=== PATIENT | female | born 1985 | race Caucasian/White ===

== ENCOUNTER 2018-12-27 23:23 | Inpatient (IN) | payer OTHER ==
[~2018-12-27] VITALS: Ht 157.5 cm; Wt 78.0 kg
[~2018-12-27 23:23] MED LIST: GABA300C16 PO; HYDR-3643 PO; HYDR30CR92 PR; MTF1000T PO; OMEP40CA6 PO; OXYC-438 PO; PANT40TA4 PO; POLY17PO6 PO; TRAM50TA PO
[2018-12-27] MEDS: SOD CHLORIDE 0.9% 1,000 ML IV SCH (23:59)
[2018-12-27] MEDS: morphine 2 MG INJ IV PRN (23:59)
[2018-12-27] MEDS: ONDANSETRON 4 MG INJ IV PRN (23:59)
[2018-12-28] MEDS ORDERED: NACL 0.9% 3 ML SYG IV SCH
[2018-12-28] MEDS ORDERED: ACETAMINOPHEN 325 MG TAB PO PRN
[2018-12-28] MEDS: PANTOPRAZOLE 40 MG INJ IV SCH ×3 (00:28→17:23)
[2018-12-28 02:33] VITALS: BP 112/59; PULSE 99; RESP 19
[2018-12-28 02:59] VITALS: Ht 157.5 cm; Wt 78.0 kg
--- NOTE | 2018-12-28 03:08 | HP ---
Date/Time of Note Date/Time of Note DATE: 12/28/18 TIME: 03:08 Assessment/Plan VTE Prophylaxis SCD applied (from Nsg): Yes Pharmacological prophylaxis: NA/contraindicated Pharm contraindication: low risk/ambulating Lines/Catheters IV Catheter Type (from Nrsg): Saline Lock Assessment/Plan Hospital Course This is a 33-year-old female being admitted to the [facility] floor for: #1 acute GI bleed: Patient is status post blood transfusion prior to being transferred. Hemoglobin currently 7.8. We will repeat CBC and check every 6 hours. Check stool occult blood. Transfuse for hemoglobin less than 7.5. Protonix 40 IV twice daily. We will also check reticular site count, haptoglobin, lactate dehydrogenase. will consult GI . #2 suspect hepatitis: Etiology possibly alcohol versus hepatitis B/hepatitis C: Her last drink apparently was about a week and a half ago. Ultrasound at the transfer facility did not show any acute findings, there was possible concern for cirrhosis. We will repeat an ultrasound and also obtain an MRCP. Will repeat LFTs will check hepatitis serology, will also check lactate dehydrogenase reticulocyte count and haptoglobin. Consult GI. #3 bandemia: Patient is afebrile. White blood cell count normal. Will check blood cultures x2, check urinalysis. #4 elevated BNP: We will check an echocardiogram. Consider cardiology consultation if indicated #5 obesity: We will check hemoglobin A 1C, lipid panel, TSH #6 alcohol binge episode: Patient reports that she went on a alcohol binge episode over the last month with her last drink being approximately on December 11. Will encourage continued cessation. #7 DVT GI prophylaxis: SCDs, Protonix Further treatment strategy will be implemented as per the clinical course. Result Diagram: 12/27/18 2351 12/27/18 2351 Results 24hrs Laboratory Tests Test 12/27/18 23:51 12/28/18 00:07 12/28/18 00:08 White Blood Count 9.4 Red Blood Count 2.49 L Hemoglobin 7.8 L Hematocrit 24.0 L Mean Corpuscular Volume 96.4 Mean Corpuscular Hemoglobin 31.3 Mean Corpuscular Hemoglobin Concent 32.5 Red Cell Distribution Width 22.4 H Platelet Count 310 Mean Platelet Volume 10.2 Immature Granulocytes % 1.300 H Neutrophils % Segmented Neutrophils % (Manual) 38 L Band Neutrophils % (Manual) 36 H Lymphocytes % Lymphocytes % (Manual) 18 Monocytes % Monocytes % (Manual) 6 Eosinophils % Eosinophils % (Manual) 2 Basophils % Nucleated Red Blood Cells % 0.2 H Immature Granulocytes # 0.120 H Neutrophils # Neutrophils # (Manual) 3.9 Band Neutrophils # 3.3 H Lymphocytes (Manual) 1.6 Lymphocytes # Monocytes # Monocytes # (Manual) 0.5 Eosinophils # Basophils # Nucleated Red Blood Cells # Platelet Estimate NORMAL Giant Platelets 1 H Polychromasia 3+ Hypochromasia 1+ Anisocytosis 3+ Macrocytosis 3+ Prothrombin Time 18.6 H Prothrombin Time Ratio 1.5 INR International Normalized Ratio 1.54 Activated Partial Thromboplast Time 55.8 H Sodium Level 133 L Potassium Level 3.9 Chloride Level 106 Carbon Dioxide Level 20 L Anion Gap 7 Blood Urea Nitrogen 10 Creatinine 0.65 Est Glomerular Filtrat Rate mL/min > 60 Glucose Level 107 Calcium Level 8.0 L Total Bilirubin 4.5 H Direct Bilirubin 2.80 H Indirect Bilirubin 1.7 H Aspartate Amino Transf (AST/SGOT) 125 H Alanine Aminotransferase (ALT/SGPT) 27 Alkaline Phosphatase 220 H Troponin I < 0.012 B-Type Natriuretic Peptide 2180 H Total Protein 8.1 Albumin 2.8 L Globulin 5.30 H Albumin/Globulin Ratio 0.52 Lipase 62 Absolute Reticulocyte Count 0.043 Percent Reticulocyte Count 1.8 H Lactate Dehydrogenase 412 Hepatitis A Antibody Total POSITIVE H Hepatitis B Surface Antigen NEGATIVE Hepatitis B Surface Antibody POSITIVE H Hepatitis B Core Total Antibody NEGATIVE Hepatitis C Antibody REACTIVE H HPI/ROS Admit Date/Time Admit Date/Time Dec 27, 2018 at 23:49 Hx of Present Illness Chief complaint abdominal pain This is a 33-year-old female with a past medical history of alcohol binge over the last few weeks with her last drink being on December 11 approximately and unspecified liver disease who presented originally to [facility] with complaints of abdominal pain for 4 days. Patient was ultimately transferred [facility] secondary to insurance purposes. Solis nt stated that she started having abdominal pain with associated joint pain. She also had chest pain for 3 days and bilateral lower extremity edema times a day. She describes abdominal pain is diffuse and crampy her bowel movements no change. She was recently diagnosed with internal hemorrhoids via colonoscopy in November 2018. However she still reports she has had blood per rectum. She denied any diarrhea or constipation. She did describe chest pain is sharp and causing difficulty breathing secondary to pain and she was recently hospitalized to [place] after binge drinking and was discharged on 12/12 on Keflex Protonix iron and MiraLAX and Metamucil which she takes regularly. Vitals on presentation showed a temperature of 37.3 C heart rate of 111 blood pressure 116/55 and 96% on room air patient was noted to be slightly jaundiced. Her initial CBC showed a hemoglobin of 7.1 however a repeat showed a hemoglobin of 6.3. Hematocrit of 18.8 she was transfused packed red blood cells and upon repeat hemoglobin showed a level of 8.6. Her MCV is 103 platelet count 299 INR 1.47 PT 17.6 CMP showed sodium 131 potassium 3.8 chloride 102 CO2 18 creatinine 0.64 albumin 2.1 alk phos 163 AST 77 bili total 6.8 bili direct 4.0 lipase 27 BNP 488 urine hCG was negative urinalysis showed a large bilirubin negative leukocytes negative nitrites patient was a positive blood type Right upper quadrant ultrasound showed limited examination secondary prominent overlying bowel gas. Pancreas was not visualized. Enlarged fatty liver. Questionable slight liver surface nodularity. Early cirrhosis not excluded. Gallbladder wall was normal thickness Upon arrival to [facility] patient continued to report that she has vague abdominal discomfort. She does report epigastric pain. She denies any vomiting of blood. But does report bloody stools. She apparently had a colonoscopy as mentioned above that showed hemorrhoids. She denies any history of IV drug use. She does have multiple tattoos. Denies any high risk sexual behavior. Denies any previous blood transfusions. She reports that she was dealing with stress in her life therefore 100 binge episode but then stopped on approximately December 11 Allergies: NKDA medications: See JUL ROS Const: As per HPI Eyes : No pain discharge or redness or change in visual acuity ENT: No pain, sore throat, congestion, congestion, dysphagia or discharge Respiratory: No shortness of breath, cough, sputum, wheezing, or pleuritic pain Cardiovascular: No chest pain, palpitation, PND, or edema GI : As per HPI Genitourinary: No dysuria, hematuria, flank pain , discharge or CVA tenderness Musculoskeletal: No joint pain, back pain, neck pain, restricted range of motion in neck or joints Skin: No rash, bruising or hives Neuro: No headache, dizziness, syncope, seizure, focal weakness Endocrine: No polyuria, polydipsia, temperature intolerance Psych: No hallucination, depression, anxiety or suicidal ideation PMH/Family/Social Past Medical History Questionable liver disease, hemorrhoids Medications Current Medications Sodium Chloride 1,000 ml @ 70 mls/hr [id number] IV Last administered on 12/27/18 23:59; Admin Dose 70 MLS/HR; Start 12/27/18 at 23:45 IV Flush (NS 3 ml) 3 ml PER PROTOCOL IV ; Start 12/28/18 at 00:00 Ondansetron HCl (Zofran Inj) 4 mg Q6H PRN IV NAUSEA/VOMITING Last administered on 12/27/18 23:59; Admin Dose 4 MG; Start 12/28/18 at 00:00 Acetaminophen (Tylenol Tab) 650 mg Q6H PRN PO .PAIN 1-3 OR TEMP Last administered on 12/28/18 02:41; Admin Dose 650 MG; Start 12/28/18 at 00:00 Morphine Sulfate (morphine) 2 mg Q4H PRN IV .SEVERE PAIN 7-10 Last administered on 12/27/18 23:59; Admin Dose 2 MG; Start 12/28/18 at 00:00 Pantoprazole (Protonix Iv) 40 mg BID@06,18 IV Last administered on 12/28/18 00:28; Admin Dose 40 MG; Start 12/28/18 at 00:00 Coded Allergies: No Known Allergy (Unverified , 12/27/18) Past Surgical History Recent colonoscopy showing hemorrhoids, tubal ligation/sterilization? Family History Significant Family History: no pertinent family hx Social History Sober for the last week and a half approximately, went on 1 month binge prior to that does not report heavy alcohol use. Smoking Status: Never smoker Drug Use: none Exam/Review of Systems Vital Signs Vitals Vital Signs Date Temp Pulse Resp B/P (MAP) Pulse Ox O2 O2 Flow FiO2 Time Delivery Rate 12/28/18 97.8 02:41 12/28/18 99 19 112/59 97 02:33 (76) 12/28/18 Room Air 01:32 Exam Exam General: Patient is a pleasant female currently lying in bed in mild distress from abdominal pain, HEENT: Atraumatic, normocephalic. The pupils are equal, round and reactive. Extraocular motor are intact, mild scleral icterus Neck: Supple with full range of motion. No rigidity or meningismus Chest: Nontender Lungs: Clear to auscultation bilaterally no crackles rales or wheezing Heart: Normal S1-S2, Regular rhythm and rate. No murmur, S3, or S4 Abdomen: Obese, soft , tenderness ablation of the epigastric region, bowel sounds are present. No guarding no rebound tenderness , No masses or o rganomegaly. No costovertebral temporal angle mass Extremities: Normal to inspection, no edema no cyanosis Neurologic: Normal mental status, speech normal, cranial nerves II through XII are intact, motor and sensory are intact, Additional Comments CLINICAL INDICATION: Chest pain TECHNIQUE: Single frontal view of the chest was obtained COMPARISON: None FINDINGS: The heart does not appear to be grossly enlarged. Minimal bibasilar atelectasis. There is no pleural effusion or pneumothorax. IMPRESSION: The lungs do not appear to be fully inflated. Minimal bibasilar atelectasis. RPTAT: HJES .David Montes MD, MD Date Time Electronically viewed and signed by .David Montes MD, MD on 12/28/2018 00:05 .S/ CC: SHEREE BUI [phone] KAVEH HOUSER Dec 28, 2018 03:08
[2018-12-28] MEDS: morphine 2 MG INJ IV PRN ×3 (04:24→13:07)
[2018-12-28] MEDS: SOD CHLORIDE 0.9% 1,000 ML IV SCH ×2 (06:52→22:23)
[2018-12-28 07:40] VITALS: BP 108/59; PULSE 89; RESP 16
--- NOTE | 2018-12-28 09:02 | RADRPT ---
Echocardiogram Report Patient Name: LORETO SCHMIDTATPatient ID: [id number] : 1985 (33y )Study Date: 12/28/2018 7:19:47 AM Gender: FAccession #: [id number] Tech: SC Location: [facility] Ref.Physician: KAVEH HOUSER Height(Cm): BSA: Weight(Kg): Quality: GoodOrder Physician: KAVEH HOUSER Account #: Procedures: Echocardiographic Report: Transthoracic echocardiogram with complete 2D, M-Mode, and doppler examination. Indications: Elevated B-type natriuretic peptide. Measurements: 2D/M Mode Doppler Measurement Value Normal Range Measurement Value Normal Range LVIDd 2D 4.8 [ 3.8 - 5.2 ] cm AV Mean Dayron 1.3 [ 70.0 - 90.0 ] cm/sec LVIDs 2D 3.0 [ 2.2 - 3.5 ] cm AV Mean PG 8.0 [ 2.0 - 4.0 ] mmHg LVPWd 2D 1.1 [ 0.6 - 0.9 ] cm AV VTI 39.4 cm IVSd 2D 0.8 [ 0.6 - 0.9 ] cm LVOT Mean Dayron 0.9 [ 60.0 - 80.0 ] cm/sec IVS/LVPW 2D 0.8 ratio LVOT Mean PG 4.0 [ 1.0 - 3.0 ] mmHg AoR Diam 2D 2.7 [ 2.3 - 3.1 ] cm LVOT Peak Dayron 1.4 [ 70.0 - 110.0 ] cm/sec LA/Ao 2D 1 ratio LVOT Peak PG 8.0 [ 2.0 - 6.0 ] mmHg LA Dimen 2D 3.9 [ 2.7 - 3.8 ] cm LVOT VTI 27.7 [ 20.0 - 30.0 ] cm MV E Peak Dayron 1.2 [ 60.0 - 130.0 ] cm/sec MV A Peak Dayron 0.6 [ 100.0 - 120.0 ] cm/sec MV E/A 1.8 [ 0.8 - 1.5 ] ratio MV Decel Time 116 [ 104 - 258 ] msec MV E/A 1.8 [ 0.8 - 1.5 ] ratio TR Peak Dayron 3.1 [ 100.0 - 280.0 ] cm/sec TR Peak PG 38.0 mmHg RVSP 53.0 [ 10.0 - 36.0 ] mmHg RA Pressure 15.0 mmHg Findings: Left Ventricle: Normal left ventricular systolic function. Normal left ventricular cavity size. Normal left ventricular wall thickness. Ejection fraction is visually estimated at 55 %. Tissue Doppler/Mitral Doppler indices are within normal limits. Right Ventricle: Normal right ventricular systolic function. Mild enlargement of right ventricle. Left Atrium: The left atrium is normal in size. Right Atrium: There is mild enlargement of right atrium. Mitral Valve: Normal appearance and function of the mitral valve with trace physiologic regurgitation. Aortic Valve: Normal appearance of the aortic valve. No significant aortic stenosis or insufficiency. Tricuspid Valve: Normal appearance of the tricuspid valve. The estimated Peak RVSP is 53 mmHg. There is moderate tricuspid regurgitation. Pulmonic Valve: Normal pulmonic valve appearance. Pericardium: Normal pericardium with no significant pericardial effusion. Aorta: Normal aortic root. IVC: Dilated IVC without respiratory collapse consistent with elevated right atrial pressure. Conclusions: Normal left ventricular systolic function. Normal left ventricular cavity size. Normal left ventricular wall thickness. Ejection fraction is visually estimated at 55 %. Tissue Doppler/Mitral Doppler indices are within normal limits. Normal right ventricular systolic function. Mild enlargement of right ventricle. There is moderate tricuspid regurgitation. The estimated Peak RVSP is 53 mmHg. Dilated IVC without respiratory collapse consistent with elevated right atrial pressure. Electronically Signed By: Jared Ortega 2018-12-28 09:01:23 PDT
[2018-12-28] MEDS ORDERED: HARD FAT/PHENYLEPHRINE SUPP PR PRN (10:00)
--- NOTE | 2018-12-28 10:00 | CONS ---
Assessment/Plan Assessment/Plan Hospital Course (Demo Recall) Summary Assessment and Plan: Assessment: Normocytic anemia Coagulopathy Alcoholic hepatitis- DF 21.5- guidelines do not recommend starting Methylprednisolone therapy for DF less than 32 -Transaminitis with direct hyperbilirubinemia-likely multifactorial Hepatitis C antibody positive- RNA Alcohol abuse Bandemia- no fevers, VSS, WBC WNL Homelessness Plan: Hepatitis C- RNA pending Abd Us- pending MRCP pending-rule out obstruction versus hepatocellular disease Obtain recent EGD/Colonoscopy completed at [facility] November 2018 Monitor H/H- transfuse for Hgb less than 7.5 Anusol Supp TID PRN Patient seen in collaboration with Dr. Ortiz CC: AKIL ORTIZ MD ; Consultation Date/Type/Reason Admit Date/Time Dec 27, 2018 at 23:49 Date of Consultation: Dec 28, 2018 Type of Consult GI Reason for Consultation Elevated LFTs Anemia Date/Time of Note DATE: 12/28/18 TIME: 09:18 Hx of Present Illness This is a 33-year-old female with past medical history of alcohol abuse with recent binge, drinking 1 to 2 pints of vodka per day for the last month. Who presented to [facility] with complaints of abdominal pain and lower extremity swelling. Patient was transferred to [facility] for insurance reasons. Work-up here has included hematology showing a normocytic anemia as well as chemistry panel showing, direct hyperbilirubinemia and transaminitis AST greater than ALT, as well as coagulopathy with INR 1.54. GI been consulted for further evaluation regarding anemia and LFTs. Currently an abdominal ultrasound has been ordered as well as an MRCP to rule out obstruction versus hepatocellular disease. Serology was obtained patient is positive for hepatitis C antibody, RNA is currently pending. Hepatitis A antibody total is also positive as well as hepatitis B surface antibody. Hepatitis B surface antigen is negative, of note BNP is elevated at 2180. Her BUN and creatinine are both within normal ranges as well as lipase noted to be 62. With further questioning patient denies nausea vomiting or hematemesis she also denies melena. She does complains of intermittent bright red blood per rectum for the past 4 months. Patient states she recently had an EGD and colonoscopy at [facility] at the end of November per patient EGD was within normal limits no mention of esophageal varices. Per patient her colonoscopy was normal except for internal and external hemorrhoids. We will request recent EGD and colonoscopy from [facility], stat. Currently no plan for repeat endoscopic evaluation but will maintain close observation. She denies smoking cigarettes, or history of IV drug use. She states she started drinking at the age of 17 socially and this is her first time she experienced binge drink. Review of Systems: A 12 system, review was conducted and is negative except as noted in the HPI or here. Past Medical History Medications Current Medications Sodium Chloride 1,000 ml @ 70 mls/hr [id number] IV Last administered on 12/28/18 06:52; Admin Dose 70 MLS/HR; Start 12/27/18 at 23:45 IV Flush (NS 3 ml) 3 ml PER PROTOCOL IV ; Start 12/28/18 at 00:00 Ondansetron HCl (Zofran Inj) 4 mg Q6H PRN IV NAUSEA/VOMITING Last administered on 12/27/18at 23:59; Admin Dose 4 MG; Start 12/28/18 at 00:00 Acetaminophen (Tylenol Tab) 650 mg Q6H PRN PO .PAIN 1-3 OR TEMP Last adminis tered on 12/28/18at 02:41; Admin Dose 650 MG; Start 12/28/18 at 00:00 Morphine Sulfate (morphine) 2 mg Q4H PRN IV .SEVERE PAIN 7-10 Last administered on 12/28/18at 09:03; Admin Dose 2 MG; Start 12/28/18 at 00:00 Pantoprazole (Protonix Iv) 40 mg BID@06,18 IV Last administered on 12/28/18at 05:31; Admin Dose 40 MG; Start 12/28/18 at 00:00 Allergies: Coded Allergies: No Known Allergy (Unverified , 12/27/18) Social History Smoking Status: Never smoker Drug Use: none Exam/Review of Systems Exam Vitals Vital Signs Date Temp Pulse Resp B/P (MAP) Pulse Ox O2 O2 Flow FiO2 Time Delivery Rate 12/28/18 98.4 89 16 108/59 98 07:40 (75) 12/28/18 Room Air 01:32 Intake and Output 12/27/18 12/27/18 12/28/18 1515:00 23:00 07:00 IntakeIntake Total 1000 ml BalanceBalance 1000 ml Exam PHYSICAL EXAMINATION: GENERAL: Alert & oriented x 3, jaundice SKIN: No lesions HEAD: Normocephalic, atraumatic, no tenderness. EYES: Pupils equal reactive to light and accommodation, full extraocular movements, icteric sclera, no discharge. EARS/NOSE AND THROAT: Ears normal, nose normal, NECK: Supple, no masses CHEST: Inspection within normal limits. CARDIOVASCULAR: Heart: Regular rate and rhythm RESPIRATORY: Lungs clear to auscultation and percussion, no wheezing, no rubs GASTROINTESTINAL AND LIVER: Abdomen: Soft, distended abdomen, no hernias, no masses, hepatomegaly,, no guarding, no rebound tenderness, normoactive bowel sounds. Rectal: Deferred. EXTREMITIES: No cyanosis, clubbing or edema. Results Result Diagram: 12/28/18 0530 12/27/18 2351 Results 24hrs Laboratory Tests Test 12/27/18 23:51 12/28/18 00:07 12/28/18 00:08 12/28/18 05:30 White Blood Count 9.4 7.7 Red Blood Count 2.49 L 2.27 L Hemoglobin 7.8 L 7.3 L Hematocrit 24.0 L 21.8 L Mean Corpuscular Volume 96.4 96.0 Mean Corpuscular 31.3 32.2 Hemoglobin Mean Corpuscular 32.5 33.5 Hemoglobin Concent Red Cell Distribution 22.4 H 22.5 H Width Platelet Count 310 282 Mean Platelet Volume 10.2 10.3 Immature Granulocytes % 1.300 H 2.100 H Neutrophils % Segmented Neutrophils 38 L % (Manual) Band Neutrophils % 36 H (Manual) Lymphocytes % Lymphocytes % (Manual) 18 Monocytes % Monocytes % (Manual) 6 Eosinophils % Eosinophils % (Manual) 2 Basophils % Nucleated Red Blood 0.2 H 0.3 H Cells % Immature Granulocytes # 0.120 H 0.160 H Neutrophils # Neutrophils # (Manual) 3.9 Band Neutrophils # 3.3 H Lymphocytes (Manual) 1.6 Lymphocytes # Monocytes # Monocytes # (Manual) 0.5 Eosinophils # Basophils # Nucleated Red Blood Cells # Platelet Estimate NORMAL Giant Platelets 1 H Polychromasia 3+ Hypochromasia 1+ Anisocytosis 3+ Macrocytosis 3+ Prothrombin Time 18.6 H Prothrombin Time Ratio 1.5 INR International 1.54 Normalized Ratio Activated 55.8 H Partial Thromboplast Time Sodium Level 133 L Potassium Level 3.9 Chloride Level 106 Carbon Dioxide Level 20 L Anion Gap 7 Blood Urea Nitrogen 10 Creatinine 0.65 Est Glomerular Filtrat > 60 Rate mL/min Glucose Level 107 Calcium Level 8.0 L Total Bilirubin 4.5 H Direct Bilirubin 2.80 H Indirect Bilirubin 1.7 H Aspartate Amino 125 H Transf (AST/SGOT) Alanine 27 Aminotransferase (ALT/SG PT) Alkaline Phosphatase 220 H Troponin I < 0.012 B-Type Natriuretic 2180 H Peptide Total Protein 8.1 Albumin 2.8 L Globulin 5.30 H Albumin/Globulin Ratio 0.52 Lipase 62 Absolute Reticulocyte 0.043 Count Percent Reticulocyte 1.8 H Count Lactate Dehydrogenase 412 Hepatitis A Antibody POSITIVE H Total Hepatitis B Surface NEGATIVE Antigen Hepatitis B Surface POSITIVE H Antibody Hepatitis B Core NEGATIVE Total Antibody Hepatitis C Antibody REACTIVE H Hemoglobin A1c 5.5 Magnesium Level 2.2 Thyroid Stimulating 4.940 H Hormone (TSH) Ethyl Alcohol Level < 10.0 H Medications Medication Current Medications Sodium Chloride 1,000 ml @ 70 mls/hr [id number] IV Last administered on 12/28/18 06:52; Admin Dose 70 MLS/HR; Start 12/27/18 at 23:45 IV Flush (NS 3 ml) 3 ml PER PROTOCOL IV ; Start 12/28/18 at 00:00 Ondansetron HCl (Zofran Inj) 4 mg Q6H PRN IV NAUSEA/VOMITING Last administered on 12/27/18 23:59; Admin Dose 4 MG; Start 12/28/18 at 00:00 Acetaminophen (Tylenol Tab) 650 mg Q6H PRN PO .PAIN 1-3 OR TEMP Last administ ered on 12/28/18 02:41; Admin Dose 650 MG; Start 12/28/18 at 00:00 Morphine Sulfate (morphine) 2 mg Q4H PRN IV .SEVERE PAIN 7-10 Last administered on 12/28/18 09:03; Admin Dose 2 MG; Start 12/28/18 at 00:00 Pantoprazole (Protonix Iv) 40 mg BID@06,18 IV Last administered on 12/28/18 05:31; Admin Dose 40 MG; Start 12/28/18 at 00:00 JUSTIN OCHOA Dec 28, 2018 09:28
[2018-12-28 14:22] VITALS: BP 95/52; PULSE 94; RESP 16
[2018-12-28] MEDS: morphine 4 MG/ML VIAL IV PRN ×2 (16:12→20:27)
--- NOTE | 2018-12-28 17:00 | PN ---
Date/Time of Note Date/Time of Note DATE: 12/28/18 TIME: 16:58 Assessment/Plan VTE Prophylaxis Risk score (from Ns)>0 risk: 1 SCD applied (from Nsg): Yes Pharmacological prophylaxis: NA/contraindicated Pharm contraindication: liver dx Lines/Catheters IV Catheter Type (from [facility]): [place] Urinary Cath still in place: No Assessment/Plan Hospital Course SUBJECTIVE: Continues to complain of abdominal pain. Asking to increase pain medicine. Denies any rectal bleeding today. OBJECTIVE: Physical Exam General: Obese, 30 year-old female lying in bed in no apparent distress. HEENT: Normocephalic, atraumatic. Eyes: Icteric sclerae, conjunctivae clear. ENT: Nasal septum midline, oral mucosa moist. Neck supple, no JVD noticed. Respiratory: Bilaterally diminished breath sounds. No use of accessory muscles of respiration. No adventitious breath sounds. Cardiovascular: S1, S2 heard. Regular rate and rhythm. Abdomen: Distended. Dilated abdominal veins. Epigastric tenderness. Genitourinary: Deferred. Extremities: No cyanosis, no clubbing. Bilateral lower extremity 1+ pitting edema. Peripheral pulses palpable. Neurologic: Cranial nerves II through XII grossly intact. The patient is awake, alert, and oriented. Skin: Normal skin turgor. Icterus. Labs & Vitals per chart ASSESSMENT & PLAN 33-year-old female who denies any significant past medical history other than history of hemorrhoids, who presented to an outside facility with a chief complaint of abdominal pain was found to have evidence of underlying anemia and transaminitis with hyperbilirubinemia, who was transferred to [facility] for further evaluation because of insurance reasons. 1. Normocytic, normochromic anemia. Etiology could be multifactorial including anemia of acute blood loss (patient reported hematochezia). Status post blood transfusion at the transferring facility. Continue to monitor H&H closely. Transfuse as indicated. Gastroenterology following. 2. Transaminitis with hyperbilirubinemia. Etiology unclear. MRCP negative although significantly limited due to motion artifact. Hepatitis A, B, and C+. Further serology pending. Avoid hepatotoxic medications. Being followed by gastroenterology. 3. Elevated right atrial pressures. Most probably secondary to underlying liver pathology. 4. Pulmonary hypertension. PA systolic pressure 53 mmHg as per 2D echocardiogram. Etiology unclear, possibly related to underlying moderate tricuspid regurgitation. 5. Alcohol abuse. Status post recent binge drinking. Cessation advised. 6. Bandemia. Etiology unclear. Patient remains afebrile. Monitor. 7. Fluids, electrolytes, and nutrition. N.p.o. except for medications. 8. DVT prophylaxis. Bilateral SCDs. 9. Plan. Continue pain control. Continue n.p.o. Await further gastroenterology recommendations. The patient was seen in collaboration with Dr. Coelho. Result Diagram: 12/28/18 1117 12/27/18 2351 Results 24hrs Laboratory Tests Test 12/27/18 23:51 12/28/18 00:07 12/28/18 00:08 12/28/18 05:30 White Blood Count 9.4 7.7 Red Blood Count 2.49 L 2.27 L Hemoglobin 7.8 L 7.3 L Hematocrit 24.0 L 21.8 L Mean Corpuscular 96.4 96.0 Volume Mean Corpuscular 31.3 32.2 Hemoglobin Mean Corpuscular 32.5 33.5 Hemoglobin Concent Red Cell 22.4 H 22.5 H Distribution Width Platelet Count 310 282 Mean Platelet 10.2 10.3 Volume Immature 1.300 H 2.100 H Granulocytes % Neutrophils % Segmented 38 L 40 Neutrophils % (Manual) Band Neutrophils % 36 H 29 H (Manual) Lymphocytes % Lymphocytes % 18 24 (Manual) Monocytes % Monocytes % 6 6 (Manual) Eosinophils % Eosinophils % 2 1 (Manual) Basophils % Nucleated Red 0.2 H 0.3 H Blood Cells % Immature 0.120 H 0.160 H Granulocytes # Neutrophils # Neutrophils # 3.9 3.2 (Manual) Band Neutrophils # 3.3 H 2.2 H Lymphocytes 1.6 1.8 (Manual) Lymphocytes # Monocytes # Monocytes # 0.5 0.4 (Manual) Eosinophils # Basophils # Nucleated Red Blood Cells # Platelet Estimate NORMAL Giant Platelets 1 H 5 H Polychromasia 3+ Hypochromasia 1+ Anisocytosis 3+ Macrocytosis 3+ Prothrombin Time 18.6 H Prothrombin Time 1.5 Ratio INR International 1.54 Normalized Ratio Activated 55.[address] Time Sodium Level 133 L Potassium Level 3.9 Chloride Level 106 Carbon Dioxide 20 L Level Anion Gap 7 Blood Urea 10 Nitrogen Creatinine 0.65 Est Glomerular > 60 Filtrat Rate mL/min Glucose Level 107 Calcium Level 8.0 L Total Bilirubin 4.5 H Direct Bilirubin 2.80 H Indirect Bilirubin 1.7 H Aspartate Amino 125 H Transf (AST/SGOT) Alanine 27 Aminotransferase ( ALT/SGPT) Alkaline 220 H Phosphatase Troponin I < 0.012 B-Type Natriuretic 2180 H Peptide Total Protein 8.1 Albumin 2.8 L Globulin 5.30 H Albumin/Globulin 0.52 Ratio Lipase 62 Absolute 0.043 Reticulocyte Count Percent 1.8 H Reticulocyte Count Lactate 412 Dehydrogenase Hepatitis A POSITIVE H Antibody Total Hepatitis B NEGATIVE Surface Antigen Hepatitis B POSITIVE H Surface Antibody Hepatitis B Core NEGATIVE Total Antibody Hepatitis C REACTIVE H Antibody Hemoglobin A1c 5.5 Magnesium Level 2.2 Thyroid 4.940 H Stimulating Hormone (TSH) Ethyl Alcohol < 10.0 H Level Test 12/28/18 08:10 12/28/18 09:53 12/28/18 11:17 Urine Color DRE Urine Clarity SLIGHTLY CLOUDY A Urine pH 5.0 Urine Specific 1.025 [place] Urine Ketones NEGATIVE Urine Nitrite NEGATIVE Urine Bilirubin 2+ H Urine Urobilinogen 2+ H Urine Leukocyte NEGATIVE Esterase Urine Microscopic > 182 H RBC Urine Microscopic 11 H WBC Urine Squamous MODERATE Epithelial Cells Urine Bacteria FEW A Urine Mucus FEW A Urine Hemoglobin 3+ H Urine Glucose NEGATIVE Urine Total 2+ H Protein Urine Opiates Positive Screen Urine Barbiturates Negative Urine Amphetamines Negative Screen Urine Negative Benzodiazepines Screen Urine Cocaine Negative Screen Urine Cannabinoids Negative Prothrombin Time 18.3 H Prothrombin Time 1.4 Ratio INR International 1.51 Normalized Ratio White Blood Count 9.4 # Red Blood Count 2.53 L Hemoglobin 8.0 L Hematocrit 25.3 L Mean Corpuscular 100.0 Volume Mean Corpuscular 31.6 Hemoglobin Mean Corpuscular 31.6 L Hemoglobin Concent Red Cell 23.2 H Distribution Width Platelet Count 322 Mean Platelet 10.2 Volume Immature 1.700 H Granulocytes % Neutrophils % Lymphocytes % Monocytes % Eosinophils % Basophils % Nucleated Red 0.0 Blood Cells % Immature 0.160 H Granulocytes # Neutrophils # Lymphocytes # Monocytes # Eosinophils # Basophils # Nucleated Red Blood Cells # Exam/Review of Systems Exam Vitals Vital Signs Date Temp Pulse Resp B/P (MAP) Pulse Ox O2 O2 Flow FiO2 Time Delivery Rate 12/28/18 98.4 94 16 95/52 (66) 98 14:22 12/28/18 Room Air 01:32 Intake and Output 12/27/18 12/27/18 12/28/18 1515:00 23:00 07:00 IntakeIntake Total 1000 ml BalanceBalance 1000 ml Results Results 24hrs Laboratory Tests Test 12/27/18 23:51 12/28/18 00:07 12/28/18 00:08 12/28/18 05:30 White Blood Count 9.4 7.7 Red Blood Count 2.49 L 2.27 L Hemoglobin 7.8 L 7.3 L Hematocrit 24.0 L 21.8 L Mean Corpuscular 96.4 96.0 Volume Mean Corpuscular 31.3 32.2 Hemoglobin Mean Corpuscular 32.5 33.5 Hemoglobin Concent Red Cell 22.4 H 22.5 H Distribution Width Platelet Count 310 282 Mean Platelet 10.2 10.3 Volume Immature 1.300 H 2.100 H Granulocytes % Neutrophils % Segmented 38 L 40 Neutrophils % (Manual) Band Neutrophils % 36 H 29 H (Manual) Lymphocytes % Lymphocytes % 18 24 (Manual) Monocytes % Monocytes % 6 6 (Manual) Eosinophils % Eosinophils % 2 1 (Manual) Basophils % Nucleated Red 0.2 H 0.3 H Blood Cells % Immature 0.120 H 0.160 H Granulocytes # Neutrophils # Neutrophils # 3.9 3.2 (Manual) Band Neutrophils # 3.3 H 2.2 H Lymphocytes 1.6 1.8 (Manual) Lymphocytes # Monocytes # Monocytes # 0.5 0.4 (Manual) Eosinophils # Basophils # Nucleated Red Blood Cells # Platelet Estimate NORMAL Giant Platelets 1 H 5 H Polychromasia 3+ Hypochromasia 1+ Anisocytosis 3+ Macrocytosis 3+ Prothrombin Time 18.6 H Prothrombin Time 1.5 Ratio INR International 1.54 Normalized Ratio Activated 55.[address] Time Sodium Level 133 L Potassium Level 3.9 Chloride Level 106 Carbon Dioxide 20 L Level Anion Gap 7 Blood Urea 10 Nitrogen Creatinine 0.65 Est Glomerular > 60 Filtrat Rate mL/min Glucose Level 107 Calcium Level 8.0 L Total Bilirubin 4.5 H Direct Bilirubin 2.80 H Indirect Bilirubin 1.7 H Aspartate Amino 125 H Transf (AST/SGOT) Alanine 27 Aminotransferase ( ALT/SGPT) Alkaline 220 H Phosphatase Troponin I < 0.012 B-Type Natriuretic 2180 H Peptide Total Protein 8.1 Albumin 2.8 L Globulin 5.30 H Albumin/Globulin 0.52 Ratio Lipase 62 Absolute 0.043 Reticulocyte Count Percent 1.8 H Reticulocyte Count Lactate 412 Dehydrogenase Hepatitis A POSITIVE H Antibody Total Hepatitis B NEGATIVE Surface Antigen Hepatitis B POSITIVE H Surface Antibody Hepatitis B Core NEGATIVE Total Antibody Hepatitis C REACTIVE H Antibody Hemoglobin A1c 5.5 Magnesium Level 2.2 Thyroid 4.940 H Stimulating Hormone (TSH) Ethyl Alcohol < 10.0 H Level Test 12/28/18 08:10 12/28/18 09:53 12/28/18 11:17 Urine Color DRE Urine Clarity SLIGHTLY CLOUDY A Urine pH 5.0 Urine Specific 1.025 [place] Urine Ketones NEGATIVE Urine Nitrite NEGATIVE Urine Bilirubin 2+ H Urine Urobilinogen 2+ H Urine Leukocyte NEGATIVE Esterase Urine Microscopic > 182 H RBC Urine Microscopic 11 H WBC Urine Squamous MODERATE Epithelial Cells Urine Bacteria FEW A Urine Mucus FEW A Urine Hemoglobin 3+ H Urine Glucose NEGATIVE Urine Total 2+ H Protein Urine Opiates Positive Screen Urine Barbiturates Negative Urine Amphetamines Negative Screen Urine Negative Benzodiazepines Screen Urine Cocaine Negative Screen Urine Cannabinoids Negative Prothrombin Time 18.3 H Prothrombin Time 1.4 Ratio INR International 1.51 Normalized Ratio White Blood Count 9.4 # Red Blood Count 2.53 L Hemoglobin 8.0 L Hematocrit 25.3 L Mean Corpuscular 100.0 Volume Mean Corpuscular 31.6 Hemoglobin Mean Corpuscular 31.6 L Hemoglobin Concent Red Cell 23.2 H Distribution Width Platelet Count 322 Mean Platelet 10.2 Volume Immature 1.700 H Granulocytes % Neutrophils % Lymphocytes % Monocytes % Eosinophils % Basophils % Nucleated Red 0.0 Blood Cells % Immature 0.160 H Granulocytes # Neutrophils # Lymphocytes # Monocytes # Eosinophils # Basophils # Nucleated Red Blood Cells # Medications Medication Current Medications Sodium Chloride 1,000 ml @ 70 mls/hr [id number] IV Last administered on 12/28/18at 06:52; Admin Dose 70 MLS/HR; Start 12/27/18 at 23:45 IV Flush (NS 3 ml) 3 ml PER PROTOCOL IV ; Start 12/28/18 at 00:00 Ondansetron HCl (Zofran Inj) 4 mg Q6H PRN IV NAUSEA/VOMITING Last administered on 12/27/18at 23:59; Admin Dose 4 MG; Start 12/28/18 at 00:00 Pantoprazole (Protonix Iv) 40 mg BID@06,18 IV Last administered on 12/28/18at 05:31; Admin Dose 40 MG; Start 12/28/18 at 00:00 Hard Fat/ Phenylephrine (Anusol Supp) 1 supp TID PRN [place] HEMORROID PAIN/ITCHING; Start 12/28/18 at 10:00 Morphine Sulfate (morphine) 4 mg Q4H PRN IV .SEVERE PAIN 7-10 Last administered on 12/28/18at 16:12; Admin Dose 4 MG; Start 12/28/18 at 16:00 ADAMARIS MOTT NP Dec 28, 2018 17:00
[2018-12-28 19:35] VITALS: BP 117/60; PULSE 103; RESP 17
[2018-12-29] VITALS (8 sets, daily range): BP systolic 107–125; BP diastolic 53–70; PULSE 90–105; RESP 16–18
[2018-12-29] MEDS: morphine 4 MG/ML VIAL IV PRN ×6 (01:56→23:17)
[2018-12-29] MEDS: PANTOPRAZOLE 40 MG INJ IV SCH ×2 (05:53→17:18)
[2018-12-29] MEDS: SOD CHLORIDE 0.9% 1,000 ML IV SCH (14:11)
--- NOTE | 2018-12-29 15:28 | PN ---
Date/Time of Note Date/Time of Note DATE: 12/29/18 TIME: 15:26 Assessment/Plan VTE Prophylaxis Risk score (from Nsg)>0 risk: 1 SCD applied (from Nsg): Yes Pharmacological prophylaxis: NA/contraindicated Pharm contraindication: bleeding Lines/Catheters IV Catheter Type (from Nrsg): Peripheral IV Urinary Cath still in place: No Assessment/Plan Hospital Course SUBJECTIVE: Continues to complain of abdominal pain. Had 1 episode of hematochezia last night. OBJECTIVE: Physical Exam General: Obese, 30 year-old female lying in bed in no apparent distress. HEENT: Normocephalic, atraumatic. Eyes: Icteric sclerae, conjunctivae clear. ENT: Nasal septum midline, oral mucosa moist. Neck supple, no JVD noticed. Respiratory: Bilaterally diminished breath sounds. No use of accessory muscles of respiration. No adventitious breath sounds. Cardiovascular: S1, S2 heard. Regular rate and rhythm. Abdomen: Distended. Dilated abdominal veins. Epigastric tenderness. Genitourinary: Deferred. Extremities: No cyanosis, no clubbing. Bilateral lower extremity 1+ pitting edema. Peripheral pulses palpable. Neurologic: Cranial nerves II through XII grossly intact. The patient is awake, alert, and oriented. Skin: Normal skin turgor. Icterus. Labs & Vitals per chart ASSESSMENT & PLAN 33-year-old female who denies any significant past medical history other than history of hemorrhoids, who presented to an outside facility with a chief complaint of abdominal pain was found to have evidence of underlying anemia and transaminitis with hyperbilirubinemia, who was transferred to [facility] for further evaluation because of insurance reasons. 1. Normocytic, normochromic anemia. Etiology could be multifactorial including anemia of acute blood loss (patient reported hematochezia). Status post blood transfusion at the transferring facility. Continue to monitor H&H closely. Transfuse as indicated. Gastroenterology following. 2. Transaminitis with hyperbilirubinemia. Etiology unclear. MRCP negative although significantly limited due to motion artifact. Hepatitis A (IgM negative), B, and C+. Further serology pending. Avoid hepatotoxic medications. Being followed by gastroenterology. 3. Elevated right atrial pressures. Most probably secondary to underlying liver pathology. 4. Pulmonary hypertension. PA systolic pressure 53 mmHg as per 2D echocardiogram. Etiology unclear, possibly related to underlying moderate tricuspid regurgitation. 5. Alcohol abuse. Status post recent binge drinking. Cessation advised. 6. Bandemia. Etiology unclear. Patient remains afebrile. Blood cultures negative. Monitor. 7. Fluids, electrolytes, and nutrition. N.p.o. except for medications. IVFs. 8. DVT prophylaxis. Bilateral SCDs. 9. Plan. Continue pain control. Advancement of diet as per gastroenterology Await further gastroenterology recommendations. The patient was seen in collaboration with Dr. Coelho. Result Diagram: 12/28/18 2251 12/29/18 0609 Results 24hrs Laboratory Tests Test 12/28/18 17:27 12/28/18 22:51 12/29/18 06:09 12/29/18 06:20 White Blood Count 8.2 7.8 Red Blood Count 2.64 L 2.36 L Hemoglobin 8.3 L 7.6 L Hematocrit 26.4 L 23.7 L Mean Corpuscular Volume 100.0 100.4 Mean Corpuscular 31.4 32.2 Hemoglobin Mean Corpuscular 31.4 L 32.1 Hemoglobin Concent Red Cell Distribution 23.1 H 22.6 H Width Platelet Count 310 313 Mean Platelet Volume 10.2 10.0 Immature Granulocytes % 1.700 H 1.900 H Neutrophils % 70.5 Segmented Neutrophils 54 % (Manual) Band Neutrophils % 19 H (Manual) Lymphocytes % 16.2 Lymphocytes % (Manual) 17 Monocytes % 8.8 Monocytes % (Manual) 8 Eosinophils % 2.1 Eosinophils % (Manual) 2 Basophils % 0.5 Nucleated Red Blood 0.2 H 0.0 Cells % Immature Granulocytes # 0.140 H 0.150 H Neutrophils # 5.5 Neutrophils # (Manual) 4.6 Band Neutrophils # 1.5 H Lymphocytes (Manual) 1.3 Lymphocytes # 1.3 Monocytes # 0.7 Monocytes # (Manual) 0.6 Eosinophils # 0.2 Basophils # 0.0 Nucleated Red Blood 0.0 Cells # Platelet Estimate NORMAL Polychromasia 1+ Poikilocytosis 1+ Anisocytosis 3+ Macrocytosis 2+ Sodium Level 136 Potassium Level 4.2 Chloride Level 110 Carbon Dioxide Level 22 Anion Gap 4 L Blood Urea Nitrogen 6 L Creatinine 0.56 Est Glomerular Filtrat > 60 Rate mL/min Glucose Level 81 Calcium Level 7.9 L Phosphorus Level 3.8 Magnesium Level 2.1 Total Bilirubin 3.2 H Direct Bilirubin 1.80 #H Indirect Bilirubin 1.4 H Aspartate Amino 218 H Transf (AST/SGOT) Alanine 25 Aminotransferase (ALT/SG PT) Alkaline Phosphatase 184 H Total Protein 7.6 Albumin 2.6 L Globulin 5.00 H Albumin/Globulin Ratio 0.52 Stool Occult Blood POSITIVE Exam/Review of Systems Exam Vitals Vital Signs Date Temp Pulse Resp B/P (MAP) Pulse Ox O2 O2 Flow FiO2 Time Delivery Rate 12/29/18 99.7 100 18 113/59 97 Room Air 13:56 (77) Intake and Output 12/28/18 12/28/18 12/29/18 1515:00 23:00 07:00 IntakeIntake Total 1060 ml 1760 ml 420 ml OutputOutput Total 450 ml BalanceBalance 610 ml 1760 ml 420 ml Results Results 24hrs Laboratory Tests Test 12/28/18 17:27 12/28/18 22:51 12/29/18 06:09 12/29/18 06:20 White Blood Count 8.2 7.8 Red Blood Count 2.64 L 2.36 L Hemoglobin 8.3 L 7.6 L Hematocrit 26.4 L 23.7 L Mean Corpuscular Volume 100.0 100.4 Mean Corpuscular 31.4 32.2 Hemoglobin Mean Corpuscular 31.4 L 32.1 Hemoglobin Concent Red Cell Distribution 23.1 H 22.6 H Width Platelet Count 310 313 Mean Platelet Volume 10.2 10.0 Immature Granulocytes % 1.700 H 1.900 H Neutrophils % 70.5 Segmented Neutrophils 54 % (Manual) Band Neutrophils % 19 H (Manual) Lymphocytes % 16.2 Lymphocytes % (Manual) 17 Monocytes % 8.8 Monocytes % (Manual) 8 Eosinophils % 2.1 Eosinophils % (Manual) 2 Basophils % 0.5 Nucleated Red Blood 0.2 H 0.0 Cells % Immature Granulocytes # 0.140 H 0.150 H Neutrophils # 5.5 Neutrophils # (Manual) 4.6 Band Neutrophils # 1.5 H Lymphocytes (Manual) 1.3 Lymphocytes # 1.3 Monocytes # 0.7 Monocytes # (Manual) 0.6 Eosinophils # 0.2 Basophils # 0.0 Nucleated Red Blood 0.0 Cells # Platelet Estimate NORMAL Polychromasia 1+ Poikilocytosis 1+ Anisocytosis 3+ Macrocytosis 2+ Sodium Level 136 Potassium Level 4.2 Chloride Level 110 Carbon Dioxide Level 22 Anion Gap 4 L Blood Urea Nitrogen 6 L Creatinine 0.56 Est Glomerular Filtrat > 60 Rate mL/min Glucose Level 81 Calcium Level 7.9 L Phosphorus Level 3.8 Magnesium Level 2.1 Total Bilirubin 3.2 H Direct Bilirubin 1.80 #H Indirect Bilirubin 1.4 H Aspartate Amino 218 H Transf (AST/SGOT) Alanine 25 Aminotransferase (ALT/SG PT) Alkaline Phosphatase 184 H Total Protein 7.6 Albumin 2.6 L Globulin 5.00 H Albumin/Globulin Ratio 0.52 Stool Occult Blood POSITIVE Medications Medication Current Medications Sodium Chloride 1,000 ml @ 70 mls/hr [id number] IV Last administered on 12/29/18at 14:11; Admin Dose 70 MLS/HR; Start 12/27/18 at 23:45 IV Flush (NS 3 ml) 3 ml PER PROTOCOL IV ; Start 12/28/18 at 00:00 Ondansetron HCl (Zofran Inj) 4 mg Q6H PRN IV NAUSEA/VOMITING Last administered on 12/27/18at 23:59; Admin Dose 4 MG; Start 12/28/18 at 00:00 Pantoprazole (Protonix Iv) 40 mg BID@06,18 IV Last administered on 12/29/18at 05:53; Admin Dose 40 MG; Start 12/28/18 at 00:00 Hard Fat/ Phenylephrine (Anusol Supp) 1 supp TID PRN [place] HEMORROID PAIN/ITCHING; Start 12/28/18 at 10:00 Morphine Sulfate (morphine) 4 mg Q4H PRN IV .SEVERE PAIN 7-10 Last administered on 12/29/18at 14:43; Admin Dose 4 MG; Start 12/28/18 at 16:00 ADAMARIS MOTT NP Dec 29, 2018 15:28
[2018-12-29] MEDS ORDERED: SOD CHLORIDE 0.9% 250 ML IV* ONE (17:47)
--- NOTE | 2018-12-29 17:54 | PN ---
Date/Time of Note Date/Time of Note DATE: 12/29/18 TIME: 17:27 Assessment/Plan VTE Prophylaxis Risk score (from Ns)>0 risk: 1 SCD applied (from Ns): Yes Pharmacological prophylaxis: NA/contraindicated Pharm contraindication: liver dx Lines/Catheters IV Catheter Type (from [facility]): Peripheral IV Urinary Cath still in place: No Assessment/Plan Assessment/Plan Assessment: Normocytic anemia Coagulopathy Alcoholic hepatitis- DF 21.5- guidelines do not recommend starting Methylprednisolone therapy for DF less than 32 -Transaminitis with direct hyperbilirubinemia-likely multifactorial -Mild dilatation of common bile duct on ultrasound -No definite stones or ductal dilatation on MRCP -limited study due to motion artifact Hepatitis C antibody positive- RNA Alcohol abuse Bandemia- no fevers, VSS, WBC WNL Homelessness Plan: Levsin 3 times daily Transfuse 1 unit of PRBCs Start regular diet Anusol suppositories 3 times daily Hepatitis C- RNA -negative Trend LFTs and bilirubin Monitor H/H- transfuse for Hgb less than 7.5 Patient seen in collaboration with Dr. Ortiz Subjective: Labs reviewed with the patient. Patient is tolerating clear liquid diet well. Complaining of upper abdominal pain and rectal bleeding. Will start Levsin 3 times daily. Start regular diet. Will order 1 unit of PRBCs. Results of abdominal ultrasound and MRCP noted. Will trend LFTs. Continue close observation. PHYSICAL EXAMINATION: GENERAL: Well developed, obese, well nourished, alert & oriented x 3, in no acute distress SKIN: No lesions, jaundice, no evidence of bleeding diathesis LYMPHATIC: No palpable lymphadenopathy. HEAD: Normocephalic, atraumatic, no tenderness. EYES: Pupils equal reactive to light and accommodation, full extraocular movements, sclera icteric, no discharge. EARS/NOSE AND THROAT: Ears normal, nose normal, oropharynx normal, oral membranes well hydrated without lesions. NECK: Supple, no masses, thyroid normal, JVP within normal limits, carotids normal without bruits. CHEST: Inspection within normal limits. CARDIOVASCULAR: Heart: Regular rate and rhythm, no murmurs, gallops or rubs. Peripheral pulses present within normal limits, no cyanosis, clubbing or edemas. No pulsatile abdominal mass RESPIRATORY: Lungs clear to auscultation and percussion, no wheezing, no rubs GASTROINTESTINAL AND LIVER: Abdomen: Soft, upper abdominal tenderness, non- distended, no hernias, no masses, no organomegaly, no ascites, no guarding, no rebound tenderness, normoactive bowel sounds. Rectal: Deferred. GENITOURINARY: Female genitalia within normal limits. EXTREMITIES: No cyanosis, clubbing or edema. Result Diagram: 12/29/18 1535 12/29/18 0609 Results 24hrs Laboratory Tests Test 12/28/18 22:51 12/29/18 06:09 12/29/18 06:20 12/29/18 15:35 White Blood Count 7.8 Red Blood Count 2.36 L Hemoglobin 7.6 L 7.3 L Hematocrit 23.7 L 22.5 L Mean Corpuscular Volume 100.4 Mean Corpuscular 32.2 Hemoglobin Mean Corpuscular 32.1 Hemoglobin Concent Red Cell Distribution 22.6 H Width Platelet Count 313 Mean Platelet Volume 10.0 Immature Granulocytes % 1.900 H Neutrophils % 70.5 Lymphocytes % 16.2 Monocytes % 8.8 Eosinophils % 2.1 Basophils % 0.5 Nucleated Red Blood 0.0 Cells % Immature Granulocytes # 0.150 H Neutrophils # 5.5 Lymphocytes # 1.3 Monocytes # 0.7 Eosinophils # 0.2 Basophils # 0.0 Nucleated Red Blood 0.0 Cells # Sodium Level 136 Potassium Level 4.2 Chloride Level 110 Carbon Dioxide Level 22 Anion Gap 4 L Blood Urea Nitrogen 6 L Creatinine 0.56 Est Glomerular Filtrat > 60 Rate mL/min Glucose Level 81 Calcium Level 7.9 L Phosphorus Level 3.8 Magnesium Level 2.1 Total Bilirubin 3.2 H Direct Bilirubin 1.80 #H Indirect Bilirubin 1.4 H Aspartate Amino 218 H Transf (AST/SGOT) Alanine 25 Aminotransferase (ALT/SG PT) Alkaline Phosphatase 184 H Total Protein 7.6 Albumin 2.6 L Globulin 5.00 H Albumin/Globulin Ratio 0.52 Stool Occult Blood POSITIVE CC: AKIL ORTIZ MD ; Exam/Review of Systems Exam Vitals Vital Signs Date Temp Pulse Resp B/P (MAP) Pulse Ox O2 O2 Flow FiO2 Time Delivery Rate 12/29/18 99.7 100 18 113/59 97 Room Air 13:56 (77) Intake and Output 12/28/18 12/28/18 12/29/18 1515:00 23:00 07:00 IntakeIntake Total 1060 ml 1760 ml 420 ml OutputOutput Total 450 ml BalanceBalance 610 ml 1760 ml 420 ml Results Results 24hrs Laboratory Tests Test 12/28/18 22:51 12/29/18 06:09 12/29/18 06:20 12/29/18 15:35 White Blood Count 7.8 Red Blood Count 2.36 L Hemoglobin 7.6 L 7.3 L Hematocrit 23.7 L 22.5 L Mean Corpuscular Volume 100.4 Mean Corpuscular 32.2 Hemoglobin Mean Corpuscular 32.1 Hemoglobin Concent Red Cell Distribution 22.6 H Width Platelet Count 313 Mean Platelet Volume 10.0 Immature Granulocytes % 1.900 H Neutrophils % 70.5 Lymphocytes % 16.2 Monocytes % 8.8 Eosinophils % 2.1 Basophils % 0.5 Nucleated Red Blood 0.0 Cells % Immature Granulocytes # 0.150 H Neutrophils # 5.5 Lymphocytes # 1.3 Monocytes # 0.7 Eosinophils # 0.2 Basophils # 0.0 Nucleated Red Blood 0.0 Cells # Sodium Level 136 Potassium Level 4.2 Chloride Level 110 Carbon Dioxide Level 22 Anion Gap 4 L Blood Urea Nitrogen 6 L Creatinine 0.56 Est Glomerular Filtrat > 60 Rate mL/min Glucose Level 81 Calcium Level 7.9 L Phosphorus Level 3.8 Magnesium Level 2.1 Total Bilirubin 3.2 H Direct Bilirubin 1.80 #H Indirect Bilirubin 1.4 H Aspartate Amino 218 H Transf (AST/SGOT) Alanine 25 Aminotransferase (ALT/SG PT) Alkaline Phosphatase 184 H Total Protein 7.6 Albumin 2.6 L Globulin 5.00 H Albumin/Globulin Ratio 0.52 Stool Occult Blood POSITIVE Medications Medication Current Medications Sodium Chloride 1,000 ml @ 70 mls/hr [id number] IV Last administered on 12/29/18at 14:11; Admin Dose 70 MLS/HR; Start 12/27/18 at 23:45 IV Flush (NS 3 ml) 3 ml PER PROTOCOL IV ; Start 12/28/18 at 00:00 Ondansetron HCl (Zofran Inj) 4 mg Q6H PRN IV NAUSEA/VOMITING Last administered on 12/27/18at 23:59; Admin Dose 4 MG; Start 12/28/18 at 00:00 Pantoprazole (Protonix Iv) 40 mg BID@06,18 IV Last administered on 12/29/18at 17:18; Admin Dose 40 MG; Start 12/28/18 at 00:00 Hard Fat/ Phenylephrine (Anusol Supp) 1 supp TID PRN [place] HEMORROID PAIN/ITCHING; Start 12/28/18 at 10:00 Morphine Sulfate (morphine) 4 mg Q4H PRN IV .SEVERE PAIN 7-10 Last administered on 12/29/18at 14:43; Admin Dose 4 MG; Start 12/28/18 at 16:00 RACHELL GRIJALVA NP Dec 29, 2018 17:54
[2018-12-29] MEDS: SKIN RESP FACT/SHARK/PH MERCU SUPP PR PRN (20:07)
[2018-12-29] MEDS ORDERED: HARD FAT/PHENYLEPHRINE SUPP PR PRN (21:00)
[2018-12-29] MEDS: HYOSCYAMINE 0.125 MG SUBL TAB PO SCH (22:36)
[2018-12-30 02:11] VITALS: BP 115/55; PULSE 103; RESP 16
[2018-12-30] MEDS: morphine 4 MG/ML VIAL IV PRN ×3 (03:50→13:27)
[2018-12-30] MEDS: HYOSCYAMINE 0.125 MG SUBL TAB PO SCH ×3 (05:45→21:10)
[2018-12-30] MEDS: PANTOPRAZOLE 40 MG INJ IV SCH ×2 (05:45→17:26)
[2018-12-30 07:46] VITALS: BP 102/52; PULSE 93; RESP 18
[2018-12-30] MEDS: SOD CHLORIDE 0.9% 1,000 ML IV SCH (08:42)
--- NOTE | 2018-12-30 13:27 | PN ---
Date/Time of Note Date/Time of Note DATE: 12/30/18 TIME: 13:25 Assessment/Plan VTE Prophylaxis Risk score (from Ns)>0 risk: 1 SCD applied (from Ns): No SCD contraindicated: other Pharmacological prophylaxis: NA/contraindicated Pharm contraindication: liver dx Lines/Catheters IV [facility] (from [facility]): Peripheral IV Urinary Cath still in place: No Assessment/Plan Hospital Course SUBJECTIVE: Continues to complain of abdominal pain, although improved. OBJECTIVE: Physical Exam General: Obese, 30 year-old female lying in bed in no apparent distress. HEENT: Normocephalic, atraumatic. Eyes: Icteric sclerae, conjunctivae clear. ENT: Nasal septum midline, oral mucosa moist. Neck supple, no JVD noticed. Respiratory: Bilaterally diminished breath sounds. No use of accessory muscles of respiration. No adventitious breath sounds. Cardiovascular: S1, S2 heard. Regular rate and rhythm. Abdomen: Distended. Dilated abdominal veins. Epigastric tenderness. Genitourinary: Deferred. Extremities: No cyanosis, no clubbing. Bilateral lower extremity 1+ pitting edema. Peripheral pulses palpable. Neurologic: Cranial nerves II through XII grossly intact. The patient is awake, alert, and oriented. Skin: Normal skin turgor. Icterus. Labs & Vitals per chart ASSESSMENT & PLAN 33-year-old female who denies any significant past medical history other than history of hemorrhoids, who presented to an outside facility with a chief complaint of abdominal pain was found to have evidence of underlying anemia and transaminitis with hyperbilirubinemia, who was transferred to [facility] for further evaluation because of insurance reasons. 1. Normocytic, normochromic anemia. Etiology could be multifactorial including anemia of acute blood loss (patient reported hematochezia). Status post blood transfusion at the transferring facility. Continue to monitor H&H closely. Transfuse as indicated. Gastroenterology following. 2. Transaminitis with hyperbilirubinemia. Etiology unclear. MRCP negative although significantly limited due to motion artifact. Hepatitis A (IgM negative). Hepatitis C RNA negative. Most probably secondary to alcoholic hepatitis. No steroids recommended by gastroenterology. Avoid hepatotoxic medications. Being followed by gastroenterology. 3. Elevated right atrial pressures. Most probably secondary to underlying liver pathology. 4. Pulmonary hypertension. PA systolic pressure 53 mmHg as per 2D echocardiogram. Etiology unclear, possibly related to underlying moderate tricuspid regurgitation. 5. Alcohol abuse. Status post recent binge drinking. Cessation advised. 6. Bandemia. Etiology unclear. Patient remains afebrile. Blood cultures negative. Monitor. 7. Fluids, electrolytes, and nutrition. Regular diet. 8. DVT prophylaxis. Bilateral SCDs. 9. Plan. Continue pain control. Titrate on pain medications. Discharge the patient home once the pain is well controlled. The patient was seen in collaboration with Dr. Coelho. Result Diagram: 12/30/185 12/30/18434 Results 24hrs Laboratory Tests Test 12/29/18 15:35 12/30/18 04:35 Hemoglobin 7.3 L 7.6 L Hematocrit 22.5 L 23.8 L White Blood Count 8.7 Red Blood Count 2.39 L Mean Corpuscular Volume 99.6 Mean Corpuscular Hemoglobin 31.8 Mean Corpuscular Hemoglobin Concent 31.9 L Red Cell Distribution Width 21.0 H Platelet Count 297 Mean Platelet Volume 9.7 Immature Granulocytes % 1.700 H Neutrophils % 70.7 Lymphocytes % 16.0 Monocytes % 9.0 Eosinophils % 1.8 Basophils % 0.8 Nucleated Red Blood Cells % 0.0 Immature Granulocytes # 0.150 H Neutrophils # 6.1 Lymphocytes # 1.4 Monocytes # 0.8 Eosinophils # 0.2 Basophils # 0.1 Nucleated Red Blood Cells # 0.0 Sodium Level 135 Potassium Level 3.8 Chloride Level 109 Carbon Dioxide Level 22 Anion Gap 4 L Blood Urea Nitrogen 3 L Creatinine 0.53 Est Glomerular Filtrat Rate mL/min > 60 Glucose Level 98 Calcium Level 8.0 L Phosphorus Level 3.6 Magnesium Level 1.8 Total Bilirubin 3.3 H Direct Bilirubin 1.80 H Indirect Bilirubin 1.5 H Aspartate Amino Transf (AST/SGOT) 170 H Alanine Aminotransferase (ALT/SGPT) 21 Alkaline Phosphatase 175 H Total Protein 7.3 Albumin 2.5 L Globulin 4.80 H Albumin/Globulin Ratio 0.52 Exam/Review of Systems Exam Vitals Vital Signs Date Temp Pulse Resp B/P (MAP) Pulse Ox O2 O2 Flow FiO2 Time Delivery Rate 12/30/18 99.8 93 18 102/52 95 Room Air 07:46 (69) Intake and Output 12/29/18 12/29/18 12/30/18 1515:00 23:00 07:00 IntakeIntake Total 940 ml 1260 ml 1100 ml OutputOutput Total 400 ml 200 ml BalanceBalance 940 ml 860 ml 900 ml Results Results 24hrs Laboratory Tests Test 12/29/18 15:35 12/30/18 04:35 Hemoglobin 7.3 L 7.6 L Hematocrit 22.5 L 23.8 L White Blood Count 8.7 Red Blood Count 2.39 L Mean Corpuscular Volume 99.6 Mean Corpuscular Hemoglobin 31.8 Mean Corpuscular Hemoglobin Concent 31.9 L Red Cell Distribution Width 21.0 H Platelet Count 297 Mean Platelet Volume 9.7 Immature Granulocytes % 1.700 H Neutrophils % 70.7 Lymphocytes % 16.0 Monocytes % 9.0 Eosinophils % 1.8 Basophils % 0.8 Nucleated Red Blood Cells % 0.0 Immature Granulocytes # 0.150 H Neutrophils # 6.1 Lymphocytes # 1.4 Monocytes # 0.8 Eosinophils # 0.2 Basophils # 0.1 Nucleated Red Blood Cells # 0.0 Sodium Level 135 Potassium Level 3.8 Chloride Level 109 Carbon Dioxide Level 22 Anion Gap 4 L Blood Urea Nitrogen 3 L Creatinine 0.53 Est Glomerular Filtrat Rate mL/min > 60 Glucose Level 98 Calcium Level 8.0 L Phosphorus Level 3.6 Magnesium Level 1.8 Total Bilirubin 3.3 H Direct Bilirubin 1.80 H Indirect Bilirubin 1.5 H Aspartate Amino Transf (AST/SGOT) 170 H Alanine Aminotransferase (ALT/SGPT) 21 Alkaline Phosphatase 175 H Total Protein 7.3 Albumin 2.5 L Globulin 4.80 H Albumin/Globulin Ratio 0.52 Medications Medication Current Medications Sodium Chloride 1,000 ml @ 70 mls/hr [id number] IV Last administered on 12/29/18at 14:11; Admin Dose 70 MLS/HR; Start 12/27/18 at 23:45 IV Flush (NS 3 ml) 3 ml PER PROTOCOL IV ; Start 12/28/18 at 00:00 Ondansetron HCl (Zofran Inj) 4 mg Q6H PRN IV NAUSEA/VOMITING Last administered on 12/27/18at 23:59; Admin Dose 4 MG; Start 12/28/18 at 00:00 Pantoprazole (Protonix Iv) 40 mg BID@06,18 IV Last administered on 12/30/18at 05:45; Admin Dose 40 MG; Start 12/28/18 at 00:00 Morphine Sulfate (morphine) 4 mg Q4H PRN IV .SEVERE PAIN 7-10 Last administered on 12/30/18at 08:39; Admin Dose 4 MG; Start 12/28/18 at 16:00 Hyoscyamine (Levsin (Sl)) 0.125 mg Q8 PO Last administered on 12/30/18at 05:45; Admin Dose 0.125 MG; Start 12/29/18 at 22:00 Skin Resp Fact/ Shark/Phenyl Mercur (Hemorrhoidal Supp) 1 ea TID PRN [place] HEMORROIDAL PAIN/ITCHING Last administered on 12/29/18at 20:07; Admin Dose 1 EA; Start 12/29/18 at 19:30 ADAMARIS MOTT NP Dec 30, 2018 13:27
[2018-12-30 14:34] VITALS: BP 103/50; PULSE 103
--- NOTE | 2018-12-30 15:13 | PN ---
Date/Time of Note Date/Time of Note DATE: 12/30/18 TIME: 15:06 Assessment/Plan VTE Prophylaxis Risk score (from Ns)>0 risk: 1 SCD applied (from [facility] [place]): No SCD contraindicated: low risk/ambulating Pharmacological prophylaxis: NA/contraindicated Pharm contraindication: bleeding, liver dx Lines/Catheters IV [facility] (from [facility]): Peripheral IV Urinary Cath still in place: No Assessment/Plan Assessment/Plan Assessment: Normocytic anemia Coagulopathy Alcoholic hepatitis- DF 21.5- guidelines do not recommend starting Methylprednisolone therapy for DF less than 32 -Transaminitis with direct hyperbilirubinemia-likely multifactorial -Mild dilatation of common bile duct on ultrasound -No definite stones or ductal dilatation on MRCP -limited study due to motion artifact Hepatitis C antibody positive- RNA Alcohol abuse Bandemia- no fevers, VSS, WBC WNL Homelessness Plan: Recommend colorectal surgery consult for hemorrhoids Levsin 3 times daily Continue regular diet Proctosol cream BID for hemorrhoids Hepatitis C- RNA -negative Trend LFTs and bilirubin Monitor H/H- transfuse for Hgb less than 7.5 Patient seen in collaboration with Dr. Ortiz Subjective: The patient is doing fair. She has not required a blood transfusion today but hemoglobin is 7.6. She continues to complain of pain and bleeding related to hemorrhoids. She reports lack of appetite. Liver enzymes are stable overall. Would recommend colorectal surgery consult for hemorrhoids. PHYSICAL EXAMINATION: GENERAL: Well developed, obese, well nourished, alert & oriented x 3, in no acute distress SKIN: No lesions, jaundice, no evidence of bleeding diathesis LYMPHATIC: No palpable lymphadenopathy. HEAD: Normocephalic, atraumatic, no tenderness. EYES: Pupils equal reactive to light and accommodation, full extraocular movements, sclera icteric, no discharge. EARS/NOSE AND THROAT: Ears normal, nose normal, oropharynx normal, oral membranes well hydrated without lesions. NECK: Supple, no masses, thyroid normal, JVP within normal limits, carotids normal without bruits. CHEST: Inspection within normal limits. CARDIOVASCULAR: Heart: Regular rate and rhythm, no murmurs, gallops or rubs. Peripheral pulses present within normal limits, no cyanosis, clubbing or edemas. No pulsatile abdominal mass RESPIRATORY: Lungs clear to auscultation and percussion, no wheezing, no rubs GASTROINTESTINAL AND LIVER: Abdomen: Soft, upper abdominal tenderness, non- distended, no hernias, no masses, no organomegaly, no ascites, no guarding, no rebound tenderness, normoactive bowel sounds. Rectal: Deferred. GENITOURINARY: Female genitalia within normal limits. EXTREMITIES: No cyanosis, clubbing or edema. Result Diagram: 12/30/18 0435 12/30/18 0435 Results 24hrs Laboratory Tests Test 12/29/18 15:35 12/30/18 04:30 12/30/18 04:35 Hemoglobin 7.3 L 7.6 L Hematocrit 22.5 L 23.8 L Iron Level 62 Total Iron Binding Capacity 156 L Percent Iron Saturation 40 Ferritin 67.1 White Blood Count 8.7 Red Blood Count 2.39 L Mean Corpuscular Volume 99.6 Mean Corpuscular Hemoglobin 31.8 Mean Corpuscular Hemoglobin Concent 31.9 L Red Cell Distribution Width 21.0 H Platelet Count 297 Mean Platelet Volume 9.7 Immature Granulocytes % 1.700 H Neutrophils % 70.7 Lymphocytes % 16.0 Monocytes % 9.0 Eosinophils % 1.8 Basophils % 0.8 Nucleated Red Blood Cells % 0.0 Immature Granulocytes # 0.150 H Neutrophils # 6.1 Lymphocytes # 1.4 Monocytes # 0.8 Eosinophils # 0.2 Basophils # 0.1 Nucleated Red Blood Cells # 0.0 Sodium Level 135 Potassium Level 3.8 Chloride Level 109 Carbon Dioxide Level 22 Anion Gap 4 L Blood Urea Nitrogen 3 L Creatinine 0.53 Est Glomerular Filtrat Rate mL/min > 60 Glucose Level 98 Calcium Level 8.0 L Phosphorus Level 3.6 Magnesium Level 1.8 Total Bilirubin 3.3 H Direct Bilirubin 1.80 H Indirect Bilirubin 1.5 H Aspartate Amino Transf (AST/SGOT) 170 H Alanine Aminotransferase (ALT/SGPT) 21 Alkaline Phosphatase 175 H Total Protein 7.3 Albumin 2.5 L Globulin 4.80 H Albumin/Globulin Ratio 0.52 CC: AKIL ORTIZ MD ; Exam/Review of Systems Exam Vitals Vital Signs Date Temp Pulse Resp B/P (MAP) Pulse Ox O2 O2 Flow FiO2 Time Delivery Rate 12/30/18 98.9 103 103/50 95 Room Air 14:34 (67) 12/30/18 18 07:46 Intake and Output 12/29/18 12/29/18 12/30/18 1515:00 23:00 07:00 IntakeIntake Total 940 ml 1260 ml 1100 ml OutputOutput Total 400 ml 200 ml BalanceBalance 940 ml 860 ml 900 ml Results Results 24hrs Laboratory Tests Test 12/29/18 15:35 12/30/18 04:30 12/30/18 04:35 Hemoglobin 7.3 L 7.6 L Hematocrit 22.5 L 23.8 L Iron Level 62 Total Iron Binding Capacity 156 L Percent Iron Saturation 40 Ferritin 67.1 White Blood Count 8.7 Red Blood Count 2.39 L Mean Corpuscular Volume 99.6 Mean Corpuscular Hemoglobin 31.8 Mean Corpuscular Hemoglobin Concent 31.9 L Red Cell Distribution Width 21.0 H Platelet Count 297 Mean Platelet Volume 9.7 Immature Granulocytes % 1.700 H Neutrophils % 70.7 Lymphocytes % 16.0 Monocytes % 9.0 Eosinophils % 1.8 Basophils % 0.8 Nucleated Red Blood Cells % 0.0 Immature Granulocytes # 0.150 H Neutrophils # 6.1 Lymphocytes # 1.4 Monocytes # 0.8 Eosinophils # 0.2 Basophils # 0.1 Nucleated Red Blood Cells # 0.0 Sodium Level 135 Potassium Level 3.8 Chloride Level 109 Carbon Dioxide Level 22 Anion Gap 4 L Blood Urea Nitrogen 3 L Creatinine 0.53 Est Glomerular Filtrat Rate mL/min > 60 Glucose Level 98 Calcium Level 8.0 L Phosphorus Level 3.6 Magnesium Level 1.8 Total Bilirubin 3.3 H Direct Bilirubin 1.80 H Indirect Bilirubin 1.5 H Aspartate Amino Transf (AST/SGOT) 170 H Alanine Aminotransferase (ALT/SGPT) 21 Alkaline Phosphatase 175 H Total Protein 7.3 Albumin 2.5 L Globulin 4.80 H Albumin/Globulin Ratio 0.52 Medications Medication Current Medications IV Flush (NS 3 ml) 3 ml PER PROTOCOL IV ; Start 12/28/18 at 00:00 Ondansetron HCl (Zofran Inj) 4 mg Q6H PRN IV NAUSEA/VOMITING Last administered on 12/27/18at 23:59; Admin Dose 4 MG; Start 12/28/18 at 00:00 Pantoprazole (Protonix Iv) 40 mg BID@06,18 IV Last administered on 12/30/18at 05:45; Admin Dose 40 MG; Start 12/28/18 at 00:00 Hyoscyamine (Levsin (Sl)) 0.125 mg Q8 PO Last administered on 12/30/18at 13:27; Admin Dose 0.125 MG; Start 12/29/18 at 22:00 Skin Resp Fact/ Shark/Phenyl Mercur (Hemorrhoidal Supp) 1 ea TID PRN [place] HEMORROIDAL PAIN/ITCHING Last administered on 12/29/18at 20:07; Admin Dose 1 EA; Start 12/29/18 at 19:30 Ketorolac Tromethamine (Toradol) 30 mg Q6H PRN IV PAIN LEVEL 1-3; Start 12/30/18 at 14:00; Stop 01/02/19 at 13:59 Tramadol HCl (Ultram) 50 mg Q6H PRN PO MODERATE PAIN LEVEL 4-6; Start 12/30/18 at 14:00 NABOR BRITT NP Dec 30, 2018 15:13
[2018-12-30] MEDS: traMADol 50 MG TAB PO PRN (17:24)
[2018-12-30] MEDS: KETOROLAC 30 MG INJ IV PRN (19:47)
[2018-12-30 20:00] VITALS: BP 106/55; PULSE 102; RESP 16
[2018-12-30] MEDS: HYDROCORTISONE 2.5% 30 GM RECT CR PR SCH (21:11)
[2018-12-30] MEDS: morphine 2 MG INJ IV PRN (22:26)
[2018-12-31 02:20] VITALS: BP 107/57; PULSE 91; RESP 17
[2018-12-31] MEDS: morphine 2 MG INJ IV PRN ×5 (03:12→20:59)
[2018-12-31] MEDS: PANTOPRAZOLE 40 MG INJ IV SCH ×2 (05:47→18:29)
[2018-12-31] MEDS: HYOSCYAMINE 0.125 MG SUBL TAB PO SCH ×3 (05:47→20:24)
[2018-12-31] MEDS: HYDROCORTISONE 2.5% 30 GM RECT CR PR SCH ×2 (07:45→20:24)
[2018-12-31 08:07] VITALS: BP 106/56; PULSE 88; RESP 16
--- NOTE | 2018-12-31 12:29 | PN ---
Date/Time of Note Date/Time of Note DATE: 12/31/18 TIME: 12:21 Assessment/Plan VTE Prophylaxis Risk score (from Nsg)>0 risk: 1 SCD applied (from Ns): No SCD contraindicated: other Pharmacological prophylaxis: NA/contraindicated Pharm contraindication: bleeding Lines/Catheters IV C[facility]ter Type (from [facility]): Peripheral IV Urinary Cath still in place: No Assessment/Plan Hospital Course SUBJECTIVE: Continues to complain of abdominal pain and rectal pain. Complains of hematochezia. OBJECTIVE: Physical Exam General: Obese, 30 year-old female lying in bed in no apparent distress. HEENT: Normocephalic, atraumatic. Eyes: Icteric sclerae, conjunctivae clear. ENT: Nasal septum midline, oral mucosa moist. Neck supple, no JVD noticed. Respiratory: Bilaterally diminished breath sounds. No use of accessory muscles of respiration. No adventitious breath sounds. Cardiovascular: S1, S2 heard. Regular rate and rhythm. Abdomen: Distended. Dilated abdominal veins. Epigastric tenderness. Rectal (chaperoned by female RN): External hemorrhoid visible approximately @9 o'clock position. No evidence of any necrosis. Extremities: No cyanosis, no clubbing. Bilateral lower extremity 1+ pitting edema. Peripheral pulses palpable. Neurologic: Cranial nerves II through XII grossly intact. The patient is awake, alert, and oriented. Skin: Normal skin turgor. Icterus. Labs & Vitals per chart ASSESSMENT & PLAN 33-year-old female who denies any significant past medical history other than history of hemorrhoids, who presented to an outside facility with a chief complaint of abdominal pain was found to have evidence of underlying anemia and transaminitis with hyperbilirubinemia, who was transferred to [facility] for further evaluation because of insurance reasons. 1. Normocytic, normochromic anemia. Etiology could be multifactorial including anemia of acute blood loss (patient reported hematochezia). Status post blood transfusion at the transferring facility and 1 unit PRBC @ H. Continue to monitor H&H closely. Transfuse as indicated. Gastroenterology following. 2. Transaminitis with hyperbilirubinemia. Etiology unclear. MRCP negative although significantly limited due to motion artifact. Hepatitis A (IgM negative). Hepatitis C RNA negative. Most probably secondary to alcoholic hepatitis. No steroids recommended by gastroenterology. Avoid hepatotoxic medications. Being followed by gastroenterology. 3. Elevated right atrial pressures. Most probably secondary to underlying liver pathology. 4. Pulmonary hypertension. PA systolic pressure 53 mmHg as per 2D echocardiogram. Etiology unclear, possibly related to underlying moderate tricuspid regurgitation. 5. Alcohol abuse. Status post recent binge drinking. Cessation advised. 6. Hemorrhoids. Continue local applications. Obtain surgical consult. 7. Fluids, electrolytes, and nutrition. Regular diet. 8. DVT prophylaxis. Bilateral SCDs. 9. Plan. Continue pain control. Titrate down pain medications. Obtain surgical consult for bleeding hemorrhoids. The patient was seen in collaboration with Dr. Coelho. Result Diagram: 12/31/18 0534 12/31/1834 Results 24hrs Laboratory Tests Test 12/31/18 05:34 12/31/18 06:41 White Blood Count 10.2 Red Blood Count 2.35 L Hemoglobin 7.6 L Hematocrit 23.8 L Mean Corpuscular Volume 101.3 H Mean Corpuscular Hemoglobin 32.3 Mean Corpuscular Hemoglobin Concent 31.9 L Red Cell Distribution Width 21.2 H Platelet Count 312 Mean Platelet Volume 9.9 Immature Granulocytes % 2.000 H Neutrophils % 76.1 Lymphocytes % 12.3 L Monocytes % 7.6 Eosinophils % 1.5 Basophils % 0.5 Nucleated Red Blood Cells % 0.0 Immature Granulocytes # 0.200 H Neutrophils # 7.8 H Lymphocytes # 1.3 Monocytes # 0.8 Eosinophils # 0.2 Basophils # 0.1 Nucleated Red Blood Cells # 0.0 Sodium Level 135 Potassium Level 3.6 Chloride Level 107 Carbon Dioxide Level 21 Anion Gap 7 Blood Urea Nitrogen 2 L Creatinine 0.58 Est Glomerular Filtrat Rate mL/min > 60 Glucose Level 105 Calcium Level 8.2 L Phosphorus Level 3.7 Magnesium Level 1.7 Total Bilirubin 3.4 H Direct Bilirubin 1.80 H Indirect Bilirubin 1.6 H Aspartate Amino Transf (AST/SGOT) 161 H Alanine Aminotransferase (ALT/SGPT) 28 Alkaline Phosphatase 185 H Total Protein 7.1 Albumin 2.5 L Globulin 4.60 H Albumin/Globulin Ratio 0.54 Lab Scanned Report BLOOD TRANSFUSION Exam/Review of Systems Exam Vitals Vital Signs Date Temp Pulse Resp B/P (MAP) Pulse Ox O2 O2 Flow FiO2 Time Delivery Rate 12/31/18 98.5 88 16 106/56 96 Room Air 08:07 (73) Intake and Output 12/30/18 12/30/18 12/31/18 1515:00 23:00 07:00 IntakeIntake Total 360 ml 1410 ml 300 ml BalanceBalance 360 ml 1410 ml 300 ml Results Results 24hrs Laboratory Tests Test 12/31/18 05:34 12/31/18 06:41 White Blood Count 10.2 Red Blood Count 2.35 L Hemoglobin 7.6 L Hematocrit 23.8 L Mean Corpuscular Volume 101.3 H Mean Corpuscular Hemoglobin 32.3 Mean Corpuscular Hemoglobin Concent 31.9 L Red Cell Distribution Width 21.2 H Platelet Count 312 Mean Platelet Volume 9.9 Immature Granulocytes % 2.000 H Neutrophils % 76.1 Lymphocytes % 12.3 L Monocytes % 7.6 Eosinophils % 1.5 Basophils % 0.5 Nucleated Red Blood Cells % 0.0 Immature Granulocytes # 0.200 H Neutrophils # 7.8 H Lymphocytes # 1.3 Monocytes # 0.8 Eosinophils # 0.2 Basophils # 0.1 Nucleated Red Blood Cells # 0.0 Sodium Level 135 Potassium Level 3.6 Chloride Level 107 Carbon Dioxide Level 21 Anion Gap 7 Blood Urea Nitrogen 2 L Creatinine 0.58 Est Glomerular Filtrat Rate mL/min > 60 Glucose Level 105 Calcium Level 8.2 L Phosphorus Level 3.7 Magnesium Level 1.7 Total Bilirubin 3.4 H Direct Bilirubin 1.80 H Indirect Bilirubin 1.6 H Aspartate Amino Transf (AST/SGOT) 161 H Alanine Aminotransferase (ALT/SGPT) 28 Alkaline Phosphatase 185 H Total Protein 7.1 Albumin 2.5 L Globulin 4.60 H Albumin/Globulin Ratio 0.54 Lab Scanned Report BLOOD TRANSFUSION Medications Medication Current Medications IV Flush (NS 3 ml) 3 ml PER PROTOCOL IV ; Start 12/28/18 at 00:00 Ondansetron HCl (Zofran Inj) 4 mg Q6H PRN IV NAUSEA/VOMITING Last administered on 12/27/18at 23:59; Admin Dose 4 MG; Start 12/28/18 at 00:00 Pantoprazole (Protonix Iv) 40 mg BID@06,18 IV Last administered on 12/31/18at 05:47; Admin Dose 40 MG; Start 12/28/18 at 00:00 Hyoscyamine (Levsin (Sl)) 0.125 mg Q8 PO Last administered on 12/31/18at 05:47; Admin Dose 0.125 MG; Start 12/29/18 at 22:00 Skin Resp Fact/ Shark/Phenyl Mercur (Hemorrhoidal Supp) 1 ea TID PRN [place] HEMORROIDAL PAIN/ITCHING Last administered on 12/29/18 20:07; Admin Dose 1 EA; Start 12/29/18 at 19:30 Ketorolac Tromethamine (Toradol) 30 mg Q6H PRN IV PAIN LEVEL 1-3 Last adm inistered on 12/30/18 19:47; Admin Dose 30 MG; Start 12/30/18 at 14:00; Stop 01/02/19 at 13:59 Tramadol HCl (Ultram) 50 mg Q6H PRN PO MODERATE PAIN LEVEL 4-6 Last administered on 12/30/18 17:24; Admin Dose 50 MG; Start 12/30/18 at 14:00 Hydrocortisone (Proctozone-Hc) 1 applic BID [place] Last administered on 12/31/18 07:45; Admin Dose 1 APPLIC; Start 12/30/18 at 21:00 Morphine Sulfate (morphine) 2 mg Q4H PRN IV SEVERE PAIN LEVEL 7-10 Last administered on 12/31/18 11:44; Admin Dose 2 MG; Start 12/30/18 at 22:15; Stop 12/31/18 at 22:15 ADAMARIS MOTT NP Dec 31, 2018 12:29
--- NOTE | 2018-12-31 14:10 | CONS ---
Assessment/Plan Assessment/Plan Assessment/Plan (Daily) Patient apparently has painless rectal bleeding from internal hemorrhoids and has never had efficient medical treatment. Her first suppository was used within the last 24 hours. Up until now she has been treating with external preparation H cream. The patient should avoid citrus fruits and spicy foods. She should be treated with ductal suppositories at least twice daily. I do not recommend surgical intervention during this hospitalization, unless bleeding is persistent and refractory to medical management Consultation Date/Type/Reason Admit Date/Time Dec 27, 2018 at 23:49 Date of Consultation: Dec 31, 2018 Type of Consult General surgery Reason for Consultation Hemorrhoidal bleeding Date/Time of Note DATE: 12/31/18 TIME: 13:29 Hx of Present Illness The patient is a 33-year-old female who is known to drink 1 to 2 pints of vodka daily. She is morbidly obese. In late November she was admitted to [facility] for she states was ankle swelling, and was also found to be anemic. Part of her anemia work-up was a colonoscopy. According to the patient the colonoscopy was unremarkable except for hemorrhoids. She was ultimately discharged and had been having painless intermittent rectal bleeding. She was rehospitalized here on December 28 after [facility] for [facility] bleeding. She required a transfusion of 1 unit of packed cells. Currently her hematocrit is 23.8 and has been stable for the last 24 hours. States that she had a small rectal bleed earlier this morning. Also of note is the fact that the patient's bilirubin is elevated at 3.4 and her AST is elevated at 170. Her hep C is negative. She is being seen by GI. Surgical consultation was requested in regards to further management of the patient's hemorrhoids. Review of systems HEENT: Unremarkable Pulmonary: No history of asthma, pneumonia or shortness of breath Cardiac: No history of chest pain, MS or arrhythmia GI: As in the HPI : Unremarkable Past Medical History Medical History: other (Bit obesity) Medications Current Medications IV Flush (NS 3 ml) 3 ml PER PROTOCOL IV ; Start 12/28/18 at 00:00 Ondansetron HCl (Zofran Inj) 4 mg Q6H PRN IV NAUSEA/VOMITING Last administered on 12/27/18at 23:59; Admin Dose 4 MG; Start 12/28/18 at 00:00 Pantoprazole (Protonix Iv) 40 mg BID@06,18 IV Last administered on 12/31/18 05:47; Admin Dose 40 MG; Start 12/28/18 at 00:00 Hyoscyamine (Levsin (Sl)) 0.125 mg Q8 PO Last administered on 12/31/18 05:47; Admin Dose 0.125 MG; Start 12/29/18 at 22:00 Skin Resp Fact/ Shark/Phenyl Mercur (Hemorrhoidal Supp) 1 ea TID PRN [place] HEMORROIDAL PAIN/ITCHING Last administered on 12/29/18 20:07; Admin Dose 1 EA; Start 12/29/18 at 19:30 Ketorolac Tromethamine (Toradol) 30 mg Q6H PRN IV PAIN LEVEL 1-3 Last administered on 12/30/18at 19:47; Admin Dose 30 MG; Start 12/30/18 at 14:00; Stop 01/02/19 at 13:59 Tramadol HCl (Ultram) 50 mg Q6H PRN PO MODERATE PAIN LEVEL 4-6 Last administered on 12/30/18 17:24; Admin Dose 50 MG; Start 12/30/18 at 14:00 Hydrocortisone (Proctozone-Hc) 1 applic BID [place] Last administered on 12/31/18 07:45; Admin Dose 1 APPLIC; Start 12/30/18 at 21:00 Morphine Sulfate (morphine) 2 mg Q4H PRN IV SEVERE PAIN LEVEL 7-10 Last administered on 12/31/18 11:44; Admin Dose 2 MG; Start 12/30/18 at 22:15; Stop 12/31/18 at 22:15 Allergies: Coded Allergies: No Known Allergy (Unverified , 12/27/18) Past Surgical History Past Surgical Hx: no surgical history Family History Significant Family History: no pertinent family hx Social History Alcohol Use: heavy Smoking Status: Never smoker Drug Use: none Exam/Review of Systems Exam Vitals Vital Signs Date Temp Pulse Resp B/P (MAP) Pulse Ox O2 O2 Flow FiO2 Time Delivery Rate 12/31/18 98.5 88 16 106/56 96 Room Air 08:07 (73) Intake and Output 12/30/18 12/30/18 12/31/18 1515:00 23:00 07:00 IntakeIntake Total 360 ml 1410 ml 300 ml BalanceBalance 360 ml 1410 ml 300 ml Constitutional: alert, oriented Psych: no complaints Head: normocephalic Eyes: nl conjunctiva ENMT: nl external ears & nose Neck: supple Respiratory: clear to auscultation, crackles/rales Gastrointestinal: soft (Rectal examination is normal. There are no intrarectal masses. 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 Results Result Diagram: 12/31/18 0534 12/31/18 0534 Results 24hrs Laboratory Tests Test 12/31/18 05:34 12/31/18 06:41 White Blood Count 10.2 Red Blood Count 2.35 L Hemoglobin 7.6 L Hematocrit 23.8 L Mean Corpuscular Volume 101.3 H Mean Corpuscular Hemoglobin 32.3 Mean Corpuscular Hemoglobin Concent 31.9 L Red Cell Distribution Width 21.2 H Platelet Count 312 Mean Platelet Volume 9.9 Immature Granulocytes % 2.000 H Neutrophils % 76.1 Lymphocytes % 12.3 L Monocytes % 7.6 Eosinophils % 1.5 Basophils % 0.5 Nucleated Red Blood Cells % 0.0 Immature Granulocytes # 0.200 H Neutrophils # 7.8 H Lymphocytes # 1.3 Monocytes # 0.8 Eosinophils # 0.2 Basophils # 0.1 Nucleated Red Blood Cells # 0.0 Sodium Level 135 Potassium Level 3.6 Chloride Level 107 Carbon Dioxide Level 21 Anion Gap 7 Blood Urea Nitrogen 2 L Creatinine 0.58 Est Glomerular Filtrat Rate mL/min > 60 Glucose Level 105 Calcium Level 8.2 L Phosphorus Level 3.7 Magnesium Level 1.7 Total Bilirubin 3.4 H Direct Bilirubin 1.80 H Indirect Bilirubin 1.6 H Aspartate Amino Transf (AST/SGOT) 161 H Alanine Aminotransferase (ALT/SGPT) 28 Alkaline Phosphatase 185 H Total Protein 7.1 Albumin 2.5 L Globulin 4.60 H Albumin/Globulin Ratio 0.54 Lab Scanned Report BLOOD TRANSFUSION Medications Medication Current Medications IV Flush (NS 3 ml) 3 ml PER PROTOCOL IV ; Start 12/28/18 at 00:00 Ondansetron HCl (Zofran Inj) 4 mg Q6H PRN IV NAUSEA/VOMITING Last administered on 12/27/18at 23:59; Admin Dose 4 MG; Start 12/28/18 at 00:00 Pantoprazole (Protonix Iv) 40 mg BID@06,18 IV Last administered on 12/31/18 05:47; Admin Dose 40 MG; Start 12/28/18 at 00:00 Hyoscyamine (Levsin (Sl)) 0.125 mg Q8 PO Last administered on 12/31/18 05:47; Admin Dose 0.125 MG; Start 12/29/18 at 22:00 Skin Resp Fact/ Shark/Phenyl Mercur (Hemorrhoidal Supp) 1 ea TID PRN [place] HEMORROIDAL PAIN/ITCHING Last administered on 12/29/18 20:07; Admin Dose 1 EA; Start 12/29/18 at 19:30 Ketorolac Tromethamine (Toradol) 30 mg Q6H PRN IV PAIN LEVEL 1-3 Last administered on 12/30/18 19:47; Admin Dose 30 MG; Start 12/30/18 at 14:00; Stop 01/02/19 at 13:59 Tramadol HCl (Ultram) 50 mg Q6H PRN PO MODERATE PAIN LEVEL 4-6 Last administered on 12/30/18 17:24; Admin Dose 50 MG; Start 12/30/18 at 14:00 Hydrocortisone (Proctozone-Hc) 1 applic BID [place] Last administered on 12/31/18 07:45; Admin Dose 1 APPLIC; Start 12/30/18 at 21:00 Morphine Sulfate (morphine) 2 mg Q4H PRN IV SEVERE PAIN LEVEL 7-10 Last administered on 12/31/18 11:44; Admin Dose 2 MG; Start 12/30/18 at 22:15; Stop 12/31/18 at 22:15 RUDI SEVILLA MD Dec 31, 2018 14:10
[2018-12-31] MEDS: SKIN RESP FACT/SHARK/PH MERCU SUPP PR PRN ×2 (14:40→21:10)
[2018-12-31 14:48] VITALS: BP 111/55; PULSE 103; RESP 16
--- NOTE | 2018-12-31 16:28 | PN ---
Date/Time of Note Date/Time of Note DATE: 12/31/18 TIME: 16:13 Assessment/Plan VTE Prophylaxis Risk score (from [facility])>0 risk: 1 SCD applied (from [facility]): No SCD contraindicated: low risk/ambulating Pharmacological prophylaxis: NA/contraindicated Pharm contraindication: liver dx Lines/Catheters IV Catheter Type (from [facility]): Peripheral IV Urinary Cath still in place: No Assessment/Plan Assessment/Plan Assessment: Normocytic anemia Coagulopathy Alcoholic hepatitis- DF 21.5- guidelines do not recommend starting Methylprednisolone therapy for DF less than 32 -Transaminitis with direct hyperbilirubinemia-likely multifactorial -Mild dilatation of common bile duct on ultrasound -No definite stones or ductal dilatation on MRCP -limited study due to motion artifact Hepatitis C antibody positive- RNA Alcohol abuse Bandemia- no fevers, VSS, WBC WNL Homelessness Plan: Start MiraLAX daily Surgeon recommends conservative treatment of hemorrhoids with suppositories Levsin 3 times daily Continue regular diet Hepatitis C- RNA -negative Trend LFTs and bilirubin Monitor H/H- transfuse for Hgb less than 7.5 Patient seen in collaboration with Dr. Ortiz Subjective: Patient states she has been having hard bowel movements however rectal bleeding resolved on suppositories. H&H is stable 7.6. No evidence of overt GI bleeding. We will continue conservative treatment of hemorrhoids with suppositories and add MiraLAX daily to the regimen. Unchanged LFTs and bilirubin. Generalized abdominal pain. Encourage ambulation. PHYSICAL EXAMINATION: GENERAL: Well developed, obese, well nourished, alert & oriented x 3, in no acute distress SKIN: No lesions, jaundice, no evidence of bleeding diathesis LYMPHATIC: No palpable lymphadenopathy. HEAD: Normocephalic, atraumatic, no tenderness. EYES: Pupils equal reactive to light and accommodation, full extraocular movements, sclera icteric, no discharge. EARS/NOSE AND THROAT: Ears normal, nose normal, oropharynx normal, oral membranes well hydrated without lesions. NECK: Supple, no masses, thyroid normal, JVP within normal limits, carotids normal without bruits. CHEST: Inspection within normal limits. CARDIOVASCULAR: Heart: Regular rate and rhythm, no murmurs, gallops or rubs. Peripheral pulses present within normal limits, no cyanosis, clubbing or edemas. No pulsatile abdominal mass RESPIRATORY: Lungs clear to auscultation and percussion, no wheezing, no rubs GASTROINTESTINAL AND LIVER: Abdomen: Soft, generalized abdominal tenderness, non-distended, no hernias, no masses, no organomegaly, no ascites, no guarding, no rebound tenderness, normoactive bowel sounds. Rectal: Deferred. GENITOURINARY: Female genitalia within normal limits. EXTREMITIES: No cyanosis, clubbing or edema. Result Diagram: 12/31/18 0534 12/31/18 0534 Results 24hrs Laboratory Tests Test 12/31/18 05:34 12/31/18 06:41 White Blood Count 10.2 Red Blood Count 2.35 L Hemoglobin 7.6 L Hematocrit 23.8 L Mean Corpuscular Volume 101.3 H Mean Corpuscular Hemoglobin 32.3 Mean Corpuscular Hemoglobin Concent 31.9 L Red Cell Distribution Width 21.2 H Platelet Count 312 Mean Platelet Volume 9.9 Immature Granulocytes % 2.000 H Neutrophils % 76.1 Lymphocytes % 12.3 L Monocytes % 7.6 Eosinophils % 1.5 Basophils % 0.5 Nucleated Red Blood Cells % 0.0 Immature Granulocytes # 0.200 H Neutrophils # 7.8 H Lymphocytes # 1.3 Monocytes # 0.8 Eosinophils # 0.2 Basophils # 0.1 Nucleated Red Blood Cells # 0.0 Sodium Level 135 Potassium Level 3.6 Chloride Level 107 Carbon Dioxide Level 21 Anion Gap 7 Blood Urea Nitrogen 2 L Creatinine 0.58 Est Glomerular Filtrat Rate mL/min > 60 Glucose Level 105 Calcium Level 8.2 L Phosphorus Level 3.7 Magnesium Level 1.7 Total Bilirubin 3.4 H Direct Bilirubin 1.80 H Indirect Bilirubin 1.6 H Aspartate Amino Transf (AST/SGOT) 161 H Alanine Aminotransferase (ALT/SGPT) 28 Alkaline Phosphatase 185 H Total Protein 7.1 Albumin 2.5 L Globulin 4.60 H Albumin/Globulin Ratio 0.54 Lab Scanned Report BLOOD TRANSFUSION CC: AKIL ORTIZ MD ; Exam/Review of Systems Exam Vitals Vital Signs Date Temp Pulse Resp B/P (MAP) Pulse Ox O2 O2 Flow FiO2 Time Delivery Rate 12/31/18 99.0 103 16 111/55 95 Room Air 14:48 (73) Intake and Output 12/30/18 12/30/18 12/31/18 1515:00 23:00 07:00 IntakeIntake Total 360 ml 1410 ml 300 ml BalanceBalance 360 ml 1410 ml 300 ml Results Results 24hrs Laboratory Tests Test 12/31/18 05:34 12/31/18 06:41 White Blood Count 10.2 Red Blood Count 2.35 L Hemoglobin 7.6 L Hematocrit 23.8 L Mean Corpuscular Volume 101.3 H Mean Corpuscular Hemoglobin 32.3 Mean Corpuscular Hemoglobin Concent 31.9 L Red Cell Distribution Width 21.2 H Platelet Count 312 Mean Platelet Volume 9.9 Immature Granulocytes % 2.000 H Neutrophils % 76.1 Lymphocytes % 12.3 L Monocytes % 7.6 Eosinophils % 1.5 Basophils % 0.5 Nucleated Red Blood Cells % 0.0 Immature Granulocytes # 0.200 H Neutrophils # 7.8 H Lymphocytes # 1.3 Monocytes # 0.8 Eosinophils # 0.2 Basophils # 0.1 Nucleated Red Blood Cells # 0.0 Sodium Level 135 Potassium Level 3.6 Chloride Level 107 Carbon Dioxide Level 21 Anion Gap 7 Blood Urea Nitrogen 2 L Creatinine 0.58 Est Glomerular Filtrat Rate mL/min > 60 Glucose Level 105 Calcium Level 8.2 L Phosphorus Level 3.7 Magnesium Level 1.7 Total Bilirubin 3.4 H Direct Bilirubin 1.80 H Indirect Bilirubin 1.6 H Aspartate Amino Transf (AST/SGOT) 161 H Alanine Aminotransferase (ALT/SGPT) 28 Alkaline Phosphatase 185 H Total Protein 7.1 Albumin 2.5 L Globulin 4.60 H Albumin/Globulin Ratio 0.54 Lab Scanned Report BLOOD TRANSFUSION Medications Medication Current Medications IV Flush (NS 3 ml) 3 ml PER PROTOCOL IV ; Start 12/28/18 at 00:00 Ondansetron HCl (Zofran Inj) 4 mg Q6H PRN IV NAUSEA/VOMITING Last administered on 12/27/18at 23:59; Admin Dose 4 MG; Start 12/28/18 at 00:00 Pantoprazole (Protonix Iv) 40 mg BID@06,18 IV Last administered on 12/31/18at 05:47; Admin Dose 40 MG; Start 12/28/18 at 00:00 Hyoscyamine (Levsin (Sl)) 0.125 mg Q8 PO Last administered on 12/31/18at 13:46; Admin Dose 0.125 MG; Start 12/29/18 at 22:00 Skin Resp Fact/ Shark/Phenyl Mercur (Hemorrhoidal Supp) 1 ea TID PRN [place] HEMORROIDAL PAIN/ITCHING Last administered on 12/31/18at 14:40; Admin Dose 1 EA; Start 12/29/18 at 19:30 Ketorolac Tromethamine (Toradol) 30 mg Q6H PRN IV PAIN LEVEL 1-3 Last administered on 12/30/18at 19:47; Admin Dose 30 MG; Start 12/30/18 at 14:00; Stop 01/02/19 at 13:59 Tramadol HCl (Ultram) 50 mg Q6H PRN PO MODERATE PAIN LEVEL 4-6 Last administered on 12/30/18 17:24; Admin Dose 50 MG; Start 12/30/18 at 14:00 Hydrocortisone (Proctozone-Hc) 1 applic BID [place] Last administered on 12/31/18at 07:45; Admin Dose 1 APPLIC; Start 12/30/18 at 21:00 Morphine Sulfate (morphine) 2 mg Q4H PRN IV SEVERE PAIN LEVEL 7-10 Last administered on 12/31/18at 15:48; Admin Dose 2 MG; Start 12/30/18 at 22:15; Stop 12/31/18 at 22:15 RACHELL GRIJALVA NP Dec 31, 2018 16:28
[2018-12-31] MEDS: KETOROLAC 30 MG INJ IV PRN (18:29)
[2018-12-31 20:28] VITALS: BP 109/58; PULSE 96; RESP 18
[2019-01-01] MEDS: KETOROLAC 30 MG INJ IV PRN ×4 (01:50→20:56)
[2019-01-01 01:51] VITALS: BP 110/56; PULSE 91; RESP 18
[2019-01-01] MEDS: PANTOPRAZOLE 40 MG INJ IV SCH ×2 (05:57→18:10)
[2019-01-01] MEDS: HYOSCYAMINE 0.125 MG SUBL TAB PO SCH ×3 (05:57→20:55)
[2019-01-01 07:39] VITALS: BP 101/55; PULSE 86; RESP 20
[2019-01-01] MEDS: HYDROCORTISONE 2.5% 30 GM RECT CR PR SCH ×2 (08:37→20:55)
[2019-01-01] MEDS: traMADol 50 MG TAB PO PRN ×2 (10:02→17:41)
[2019-01-01] MEDS: ONDANSETRON 4 MG INJ IV PRN (10:04)
[2019-01-01] MEDS ORDERED: SOD CHLORIDE 0.9% 250 ML IV* ONE (10:39)
--- NOTE | 2019-01-01 10:45 | PN ---
Date/Time of Note Date/Time of Note DATE: 01/01/19 TIME: 10:40 Assessment/Plan VTE Prophylaxis [place] [facility] [place] risk: 1 SCD applied (from [facility] [place] No SCD contraindicated: other Pharmacological prophylaxis: NA/contraindicated Pharm contraindication: low risk/ambulating Lines/Catheters [facility] Saline Lock Urinary Cath still in place: No Assessment/Plan Hospital Course Assessment plan #Normocytic normal chromic anemia Suspect from reported hematochezia Continue to monitor H&H trend. GI consult is following Plan to transfuse 1 PRBC today #Transaminitis with hyperbilirubinemia Etiology unclear MRCP negative (although limited from motion artifact) Suspect alcoholic hepatitis? No steroids per GI Hepatitis A (IgM negative). Hepatitis C RNA negative. Monitor LFT #Pulmonary hypertension PA systolic pressure 53 mmHg per echo Possibly from underlying liver pathology Monitor for now #Alcohol abuse Patient with reported change drinking Cessation advised #Hemorrhoids Continue local applications Surgeon consulted the patient who recommended no surgery at this time No further reports of bleeding Monitor Disposition and plan. Plan transfuse 1 PRBC today. Monitor H&H trend. Plan to discharge within the next 24 hours if medically stable Discussed POC with Dr. Montiel Result Diagram: 01/01/19 0525 01/01/19 0525 Results 24hrs Laboratory Tests Test 01/01/19 05:25 White Blood Count 11.6 H Red Blood Count 2.36 L Hemoglobin 7.6 L Hematocrit 23.8 L Mean Corpuscular Volume 100.8 Mean Corpuscular Hemoglobin 32.2 Mean Corpuscular Hemoglobin Concent 31.9 L Red Cell Distribution Width 21.2 H Platelet Count 323 Mean Platelet Volume 9.7 Immature Granulocytes % 1.500 H Neutrophils % Segmented Neutrophils % (Manual) 52 Band Neutrophils % (Manual) 31 H Lymphocytes % Lymphocytes % (Manual) 10 L Reactive Lymphocytes % (Manual) 1 H Monocytes % Monocytes % (Manual) 2 Eosinophils % Eosinophils % (Manual) 3 Basophils % Promyelocytes % (Manual) 1 H Nucleated Red Blood Cells % 0.0 Immature Granulocytes # 0.170 H Neutrophils # Neutrophils # (Manual) 6.4 Band Neutrophils # 3.5 H Lymphocytes (Manual) 1.1 Lymphocytes # Reactive Lymphocytes # 0.1 H Monocytes # Monocytes # (Manual) 0.2 L Eosinophils # Basophils # Promyelocytes # 0.1 H Nucleated Red Blood Cells # Platelet Estimate NORMAL Giant Platelets 2 H Anisocytosis 1+ Macrocytosis 1+ Prothrombin Time 17.6 H Prothrombin Time Ratio 1.4 INR International Normalized Ratio 1.44 Activated Partial Thromboplast Time 55.0 H Sodium Level 137 Potassium Level 3.6 Chloride Level 108 Carbon Dioxide Level 24 Anion Gap 5 Blood Urea Nitrogen 3 L Creatinine 0.66 Est Glomerular Filtrat Rate mL/min > 60 Glucose Level 97 Calcium Level 8.2 L Phosphorus Level 4.5 Magnesium Level 1.8 Total Bilirubin 2.8 H Direct Bilirubin 1.40 H Indirect Bilirubin 1.4 H Aspartate Amino Transf (AST/SGOT) 200 H Alanine Aminotransferase (ALT/SGPT) 30 Alkaline Phosphatase 177 H Total Protein 7.2 Albumin 2.5 L Globulin 4.70 H Albumin/Globulin Ratio 0.53 Subjective 24 Hr Interval Summary Free Text/Dictation patient with no reports of abd pain. no further reports of bleeding reported at this time Exam/Review of Systems Exam Vitals Vital Signs Date Temp Pulse Resp B/P (MAP) Pulse Ox O2 O2 Flow FiO2 Time Delivery Rate 01/01/19 98.5 86 20 101/55 99 07:39 (70) 01/01/19 Room Air 01:51 Intake and Output 12/31/18 12/31/18 01/01/19 1515:00 23:00 07:00 IntakeIntake Total 720 ml 360 ml BalanceBalance 720 ml 360 ml Constitutional: alert, oriented Psych: nl mood/affect Head: normocephalic Eyes: nl conjunctiva Neck: supple, non-tender Respiratory: clear to auscultation Cardiovascular: other (regular rate) Gastrointestinal: soft, non-tender Musculoskeletal: nl extremities to inspection Neurological: [employer] [employer] II-XII intact, nl speech Results Results 24hrs Laboratory Tests Test 01/01/19 05:25 White Blood Count 11.6 H Red Blood Count 2.36 L Hemoglobin 7.6 L Hematocrit 23.8 L Mean Corpuscular Volume 100.8 Mean Corpuscular Hemoglobin 32.2 Mean Corpuscular Hemoglobin Concent 31.9 L Red Cell Distribution Width 21.2 H Platelet Count 323 Mean Platelet Volume 9.7 Immature Granulocytes % 1.500 H Neutrophils % Segmented Neutrophils % (Manual) 52 Band Neutrophils % (Manual) 31 H Lymphocytes % Lymphocytes % (Manual) 10 L Reactive Lymphocytes % (Manual) 1 H Monocytes % Monocytes % (Manual) 2 Eosinophils % Eosinophils % (Manual) 3 Basophils % Promyelocytes % (Manual) 1 H Nucleated Red Blood Cells % 0.0 Immature Granulocytes # 0.170 H Neutrophils # Neutrophils # (Manual) 6.4 Band Neutrophils # 3.5 H Lymphocytes (Manual) 1.1 Lymphocytes # Reactive Lymphocytes # 0.1 H Monocytes # Monocytes # (Manual) 0.2 L Eosinophils # Basophils # Promyelocytes # 0.1 H Nucleated Red Blood Cells # Platelet Estimate NORMAL Giant Platelets 2 H Anisocytosis 1+ Macrocytosis 1+ Prothrombin Time 17.6 H Prothrombin Time Ratio 1.4 INR International Normalized Ratio 1.44 Activated Partial Thromboplast Time 55.0 H Sodium Level 137 Potassium Level 3.6 Chloride Level 108 Carbon Dioxide Level 24 Anion Gap 5 Blood Urea Nitrogen 3 L Creatinine 0.66 Est Glomerular Filtrat Rate mL/min > 60 Glucose Level 97 Calcium Level 8.2 L Phosphorus Level 4.5 Magnesium Level 1.8 Total Bilirubin 2.8 H Direct Bilirubin 1.40 H Indirect Bilirubin 1.4 H Aspartate Amino Transf (AST/SGOT) 200 H Alanine Aminotransferase (ALT/SGPT) 30 Alkaline Phosphatase 177 H Total Protein 7.2 Albumin 2.5 L Globulin 4.70 H Albumin/Globulin Ratio 0.53 Medications Medication Current Medications IV Flush (NS 3 ml) 3 ml PER PROTOCOL IV ; Start 12/28/18 at 00:00 Ondansetron HCl (Zofran Inj) 4 mg Q6H PRN IV NAUSEA/VOMITING Last administered on 01/01/19at 10:04; Admin Dose 4 MG; Start 12/28/18 at 00:00 Pantoprazole (Protonix Iv) 40 mg BID@,18 IV Last administered on 01/01/19at 05:57; Admin Dose 40 MG; Start 12/28/18 at 00:00 Hyoscyamine (Levsin (Sl)) 0.125 mg Q8 PO Last administered on 01/01/19at 05:57; Admin Dose 0.125 MG; Start 12/29/18 at 22:00 Skin Resp Fact/ Shark/Phenyl Mercur (Hemorrhoidal Supp) 1 ea TID PRN [place] HEMORROIDAL PAIN/ITCHING Last administered on 12/31/18at 21:10; Admin Dose 1 EA; Start 12/29/18 at 19:30 Ketorolac Tromethamine (Toradol) 30 mg Q6H PRN IV PAIN LEVEL 1-3 Last administered on 01/01/19at 07:42; Admin Dose 30 MG; Start 12/30/18 at 14:00; Stop 01/02/19 at 13:59 Tramadol HCl (Ultram) 50 mg Q6H PRN PO MODERATE PAIN LEVEL 4-6 Last administered on 01/01/19at 10:02; Admin Dose 50 MG; Start 12/30/18 at 14:00 Hydrocortisone (Proctozone-Hc) 1 applic BID [place] Last administered on 01/01/19at 08:37; Admin Dose 1 APPLIC; Start 12/30/18 at 21:00 CATHRYN MARRUFO NP Jan 01, 2019 10:44
[2019-01-01 13:05] VITALS: BP 112/58; PULSE 97; RESP 18
[2019-01-01 14:20] VITALS: BP 114/72; PULSE 117; RESP 18
[2019-01-01] MEDS: SKIN RESP FACT/SHARK/PH MERCU SUPP PR PRN (14:24)
--- NOTE | 2019-01-01 15:53 | PN ---
Date/Time of Note Date/Time of Note DATE: 01/01/19 TIME: 15:50 Assessment/Plan VTE Prophylaxis Risk score (from [facility])>0 risk: 1 SCD applied (from [facility]): No SCD contraindicated: low risk/ambulating Pharmacological prophylaxis: NA/contraindicated Pharm contraindication: liver dx Lines/Catheters IV [facility] Type (from [facility] Saline Lock Urinary Cath still in place: No Assessment/Plan Hospital Course Assessment: Normocytic anemia EGD/Colonoscopy 12/15/18- at [facility] hypertensive gastropathy Normal esophagus without evidence of varices Normal duodenum Normal colonic mucosa Hemorrhoids Coagulopathy Alcoholic hepatitis- DF 21.5- guidelines do not recommend starting Methylprednisolone therapy for DF less than 32 -Transaminitis with direct hyperbilirubinemia-likely multifactorial -Mild dilatation of common bile duct on ultrasound -No definite stones or ductal dilatation on MRCP -limited study due to motion artifact Hepatic steatosis Hepatosplenomegaly Hepatitis C antibody positive- RNA Alcohol abuse Bandemia Homelessness Plan: currently receiving 1 unit of packed cells Per recommendations of procedure report due to suboptimal preparation of colonoscopy they recommend to repeat colonoscopy 6 to 12 months Surgeon recommends conservative treatment of hemorrhoids with suppositories Levsin 3 times daily Continue regular diet Hepatitis C- AB reactive, RNA- not detected Trend LFTs and bilirubin- slowly improving Monitor H/H- transfuse for Hgb less than 7.5 Patient seen in collaboration with Dr. Ortiz Subjective: No over night events. Patient resting in bed, discussed labs findings She currently denies n/v or abdominal pain No overt signs of GI bleed. PHYSICAL EXAMINATION: GENERAL: Well developed, obese, well nourished, alert & oriented x 3, in no acute distress SKIN: No lesions, jaundice, no evidence of bleeding diathesis LYMPHATIC: No palpable lymphadenopathy. HEAD: Normocephalic, atraumatic, no tenderness. EYES: Pupils equal reactive to light and accommodation, full extraocular movements, sclera icteric, no discharge. EARS/NOSE AND THROAT: Ears normal, nose normal, oropharynx normal, oral membranes well hydrated without lesions. NECK: Supple, no masses, thyroid normal, JVP within normal limits, carotids normal without bruits. CHEST: Inspection within normal limits. CARDIOVASCULAR: Heart: Regular rate and rhythm, no murmurs, gallops or rubs. Peripheral pulses present within normal limits, no cyanosis, clubbing or edemas. No pulsatile abdominal mass RESPIRATORY: Lungs clear to auscultation and percussion, no wheezing, no rubs GASTROINTESTINAL AND LIVER: Abdomen: Soft, generalized abdominal tenderness, non-distended, no hernias, no masses, no organomegaly, no ascites, no guarding, no rebound tenderness, normoactive bowel sounds. Rectal: Deferred. GENITOURINARY: Female genitalia within normal limits. EXTREMITIES: No cyanosis, clubbing or edema. Result Diagram: 01/01/1925 01/01/19 0525 Results 24hrs Laboratory Tests Test 01/01/19 05:25 White Blood Count 11.6 H Red Blood Count 2.36 L Hemoglobin 7.6 L Hematocrit 23.8 L Mean Corpuscular Volume 100.8 Mean Corpuscular Hemoglobin 32.2 Mean Corpuscular Hemoglobin Concent 31.9 L Red Cell Distribution Width 21.2 H Platelet Count 323 Mean Platelet Volume 9.7 Immature Granulocytes % 1.500 H Neutrophils % Segmented Neutrophils % (Manual) 52 Band Neutrophils % (Manual) 31 H Lymphocytes % Lymphocytes % (Manual) 10 L Reactive Lymphocytes % (Manual) 1 H Monocytes % Monocytes % (Manual) 2 Eosinophils % Eosinophils % (Manual) 3 Basophils % Promyelocytes % (Manual) 1 H Nucleated Red Blood Cells % 0.0 Immature Granulocytes # 0.170 H Neutrophils # Neutrophils # (Manual) 6.4 Band Neutrophils # 3.5 H Lymphocytes (Manual) 1.1 Lymphocytes # Reactive Lymphocytes # 0.1 H Monocytes # Monocytes # (Manual) 0.2 L Eosinophils # Basophils # Promyelocytes # 0.1 H Nucleated Red Blood Cells # Platelet Estimate NORMAL Giant Platelets 2 H Anisocytosis 1+ Macrocytosis 1+ Prothrombin Time 17.6 H Prothrombin Time Ratio 1.4 INR International Normalized Ratio 1.44 Activated Partial Thromboplast Time 55.0 H Sodium Level 137 Potassium Level 3.6 Chloride Level 108 Carbon Dioxide Level 24 Anion Gap 5 Blood Urea Nitrogen 3 L Creatinine 0.66 Est Glomerular Filtrat Rate mL/min > 60 Glucose Level 97 Calcium Level 8.2 L Phosphorus Level 4.5 Magnesium Level 1.8 Total Bilirubin 2.8 H Direct Bilirubin 1.40 H Indirect Bilirubin 1.4 H Aspartate Amino Transf (AST/SGOT) 200 H Alanine Aminotransferase (ALT/SGPT) 30 Alkaline Phosphatase 177 H Total Protein 7.2 Albumin 2.5 L Globulin 4.70 H Albumin/Globulin Ratio 0.53 Exam/Review of Systems Exam Vitals Vital Signs Date Temp Pulse Resp B/P (MAP) Pulse Ox O2 O2 Flow FiO2 Time Delivery Rate 01/01/19 98.2 117 18 114/72 99 14:20 (86) 01/01/19 Room Air 01:51 Intake and Output 12/31/18 12/31/18 01/01/19 1515:00 23:00 07:00 IntakeIntake Total 720 ml 360 ml BalanceBalance 720 ml 360 ml Results Results 24hrs Laboratory Tests Test 01/01/19 05:25 White Blood Count 11.6 H Red Blood Count 2.36 L Hemoglobin 7.6 L Hematocrit 23.8 L Mean Corpuscular Volume 100.8 Mean Corpuscular Hemoglobin 32.2 Mean Corpuscular Hemoglobin Concent 31.9 L Red Cell Distribution Width 21.2 H Platelet Count 323 Mean Platelet Volume 9.7 Immature Granulocytes % 1.500 H Neutrophils % Segmented Neutrophils % (Manual) 52 Band Neutrophils % (Manual) 31 H Lymphocytes % Lymphocytes % (Manual) 10 L Reactive Lymphocytes % (Manual) 1 H Monocytes % Monocytes % (Manual) 2 Eosinophils % Eosinophils % (Manual) 3 Basophils % Promyelocytes % (Manual) 1 H Nucleated Red Blood Cells % 0.0 Immature Granulocytes # 0.170 H Neutrophils # Neutrophils # (Manual) 6.4 Band Neutrophils # 3.5 H Lymphocytes (Manual) 1.1 Lymphocytes # Reactive Lymphocytes # 0.1 H Monocytes # Monocytes # (Manual) 0.2 L Eosinophils # Basophils # Promyelocytes # 0.1 H Nucleated Red Blood Cells # Platelet Estimate NORMAL Giant Platelets 2 H Anisocytosis 1+ Macrocytosis 1+ Prothrombin Time 17.6 H Prothrombin Time Ratio 1.4 INR International Normalized Ratio 1.44 Activated Partial Thromboplast Time 55.0 H Sodium Level 137 Potassium Level 3.6 Chloride Level 108 Carbon Dioxide Level 24 Anion Gap 5 Blood Urea Nitrogen 3 L Creatinine 0.66 Est Glomerular Filtrat Rate mL/min > 60 Glucose Level 97 Calcium Level 8.2 L Phosphorus Level 4.5 Magnesium Level 1.8 Total Bilirubin 2.8 H Direct Bilirubin 1.40 H Indirect Bilirubin 1.4 H Aspartate Amino Transf (AST/SGOT) 200 H Alanine Aminotransferase (ALT/SGPT) 30 Alkaline Phosphatase 177 H Total Protein 7.2 Albumin 2.5 L Globulin 4.70 H Albumin/Globulin Ratio 0.53 Medications Medication Current Medications IV Flush (NS 3 ml) 3 ml PER PROTOCOL IV ; Start 12/28/18 at 00:00 Ondansetron HCl (Zofran Inj) 4 mg Q6H PRN IV NAUSEA/VOMITING Last administered on 01/01/19 10:04; Admin Dose 4 MG; Start 12/28/18 at 00:00 Pantoprazole (Protonix Iv) 40 mg BID@,18 IV Last administered on 01/01/19 05:57; Admin Dose 40 MG; Start 12/28/18 at 00:00 Hyoscyamine (Levsin (Sl)) 0.125 mg Q8 PO Last administered on 01/01/19 14:24; Admin Dose 0.125 MG; Start 12/29/18 at 22:00 Skin Resp Fact/ Shark/Phenyl Mercur (Hemorrhoidal Supp) 1 ea TID PRN [place] HEMORROIDAL PAIN/ITCHING Last administered on 01/01/19 14:24; Admin Dose 1 EA; Start 12/29/18 at 19:30 Ketorolac Tromethamine (Toradol) 30 mg Q6H PRN IV PAIN LEVEL 1-3 Last administered on 01/01/19 14:17; Admin Dose 30 MG; Start 12/30/18 at 14:00; Stop 01/02/19 at 13:59 Tramadol HCl (Ultram) 50 mg Q6H PRN PO MODERATE PAIN LEVEL 4-6 Last administered on 01/01/19 10:02; Admin Dose 50 MG; Start 12/30/18 at 14:00 Hydrocortisone (Proctozone-Hc) 1 applic BID [place] Last administered on 01/01/19 08:37; Admin Dose 1 APPLIC; Start 12/30/18 at 21:00 JUSTIN OCHOA Jan 01, 2019 15:53
[2019-01-01 20:00] VITALS: BP 112/57; PULSE 90; RESP 16
[2019-01-02] MEDS: traMADol 50 MG TAB PO PRN ×3 (00:21→14:43)
[2019-01-02 02:47] VITALS: BP 97/58; PULSE 81; RESP 16
[2019-01-02] MEDS: KETOROLAC 30 MG INJ IV PRN ×2 (04:40→10:51)
[2019-01-02] MEDS: HYOSCYAMINE 0.125 MG SUBL TAB PO SCH (06:34)
[2019-01-02] MEDS: PANTOPRAZOLE 40 MG INJ IV SCH ×2 (06:34→17:04)
[2019-01-02 07:54] VITALS: BP 106/56; PULSE 97; RESP 20
[2019-01-02] MEDS: HYDROCORTISONE 2.5% 30 GM RECT CR PR SCH ×2 (10:08→21:56)
--- NOTE | 2019-01-02 11:27 | PN ---
Date/Time of Note Date/Time of Note DATE: 01/02/19 TIME: 11:25 Assessment/Plan VTE Prophylaxis [place] [facility] [place]: 1 [place] applied [place] [facility] [place]CD contraindicated: other Pharmacological prophylaxis: NA/contraindicated Pharm contraindication: bleeding Lines/Catheters [facility] C[facility] Type [facility]from [facility] Saline Lock Urinary Cath still in place: No Assessment/Plan Hospital Course Assessment plan #Normocytic normal chromic anemia Suspect from reported hematochezia (has hemorrhoids) Continue to monitor H&H trend. GI consult is following s/p 1 PRBC 01.01.19 #Transaminitis with hyperbilirubinemia Etiology unclear MRCP negative (although limited from motion artifact) Suspect alcoholic hepatitis? No steroids per GI Hepatitis A (IgM negative). Hepatitis C RNA negative. Monitor LFT #Pulmonary hypertension PA systolic pressure 53 mmHg per echo Possibly from underlying liver pathology Monitor for now #Alcohol abuse Patient with reported change drinking Cessation advised #Hemorrhoids Continue local applications Surgeon consulted the patient who recommended no surgery at this time Monitor Disposition and plan. Reported rectal bleeding again. Follow-up with GI recommendations. Discharge when cleared by consults Discussed POC with Dr. Montiel Result Diagram: 01/02/19 0915 01/01/19 0525 Results 24hrs Laboratory Tests Test 01/02/19 06:50 01/02/19 09:15 Lab Scanned Report BLOOD TRANSFUSION White Blood Count 13.8 H Red Blood Count 2.64 L Hemoglobin 8.5 L Hematocrit 27.4 L Mean Corpuscular Volume 103.8 H Mean Corpuscular Hemoglobin 32.2 Mean Corpuscular Hemoglobin Concent 31.0 L Red Cell Distribution Width 21.1 H Platelet Count 374 Mean Platelet Volume 9.7 Immature Granulocytes % 1.300 H Neutrophils % 82.7 H Lymphocytes % 8.9 L Monocytes % 5.2 Eosinophils % 1.4 Basophils % 0.5 Nucleated Red Blood Cells % 0.0 Immature Granulocytes # 0.180 H Neutrophils # 11.4 H Lymphocytes # 1.2 Monocytes # 0.7 Eosinophils # 0.2 Basophils # 0.1 Nucleated Red Blood Cells # 0.0 Subjective 24 Hr Interval Summary Free Text/Dictation Reported having some rcctal bleeding with last BM. Family at bedside. No other specific complaints. Exam/Review of Systems Exam Vitals Vital Signs Date Temp Pulse Resp B/P (MAP) Pulse Ox O2 O2 Flow FiO2 Time Delivery Rate 01/02/19 98.0 97 20 106/56 96 07:54 (73) 01/01/19 Room Air 01:51 Intake and Output 01/01/19 01/01/19 01/02/19 1515:00 23:00 07:00 IntakeIntake Total 840 ml 1470 ml 200 ml BalanceBalance 840 ml 1470 ml 200 ml Exam Constitutional: alert, oriented Psych: nl mood/affect Head: normocephalic Eyes: nl conjunctiva Neck: supple, non-tender Respiratory: clear to auscultation Cardiovascular: other (regular rate) Gastrointestinal: soft, non-tender Musculoskeletal: nl extremities to inspection Neurological: [employer] TE[employer]ER II-XII intact, nl speech Results Results 24hrs Laboratory Tests Test 01/02/19 06:50 01/02/19 09:15 Lab Scanned Report BLOOD TRANSFUSION White Blood Count 13.8 H Red Blood Count 2.64 L Hemoglobin 8.5 L Hematocrit 27.4 L Mean Corpuscular Volume 103.8 H Mean Corpuscular Hemoglobin 32.2 Mean Corpuscular Hemoglobin Concent 31.0 L Red Cell Distribution Width 21.1 H Platelet Count 374 Mean Platelet Volume 9.7 Immature Granulocytes % 1.300 H Neutrophils % 82.7 H Lymphocytes % 8.9 L Monocytes % 5.2 Eosinophils % 1.4 Basophils % 0.5 Nucleated Red Blood Cells % 0.0 Immature Granulocytes # 0.180 H Neutrophils # 11.4 H Lymphocytes # 1.2 Monocytes # 0.7 Eosinophils # 0.2 Basophils # 0.1 Nucleated Red Blood Cells # 0.0 Medications Medication Current Medications IV Flush (NS 3 ml) 3 ml PER PROTOCOL IV ; Start 12/28/18 at 00:00 Ondansetron HCl (Zofran Inj) 4 mg Q6H PRN IV NAUSEA/VOMITING Last administered on 01/01/19at 10:04; Admin Dose 4 MG; Start 12/28/18 at 00:00 Pantoprazole (Protonix Iv) 40 mg BID@06,18 IV Last administered on 01/02/19at 06:34; Admin Dose 40 MG; Start 12/28/18 at 00:00 Hyoscyamine (Levsin (Sl)) 0.125 mg Q8 PO Last administered on 01/02/19at 06:34; Admin Dose 0.125 MG; Start 12/29/18 at 22:00 Skin Resp Fact/ Shark/Phenyl Mercur (Hemorrhoidal Supp) 1 ea TID PRN [place] HEMORROIDAL PAIN/ITCHING Last administered on 01/01/19at 14:24; Admin Dose 1 EA; Start 12/29/18 at 19:30 Ketorolac Tromethamine (Toradol) 30 mg Q6H PRN IV PAIN LEVEL 1-3 Last administered on 01/02/19at 10:51; Admin Dose 30 MG; Start 12/30/18 at 14:00; Stop 01/02/19 at 13:59 Tramadol HCl (Ultram) 50 mg Q6H PRN PO MODERATE PAIN LEVEL 4-6 Last administered on 01/02/19 07:37; Admin Dose 50 MG; Start 12/30/18 at 14:00 Hydrocortisone (Proctozone-Hc) 1 applic BID [place] Last administered on 01/02/19at 10:08; Admin Dose 1 APPLIC; Start 12/30/18 at 21:00 CATHRYN MARRUFO NP Jan 02, 2019 11:27
--- NOTE | 2019-01-02 13:26 | PN ---
Date/Time of Note Date/Time of Note DATE: 01/02/19 TIME: 13:13 Assessment/Plan VTE Prophylaxis Risk score (from Ns)>0 risk: 1 SCD applied (from Ns): No SCD contraindicated: low risk/ambulating Pharmacological prophylaxis: NA/contraindicated Pharm contraindication: bleeding Lines/Catheters IV C[facility]ter Type (from [facility]): Peripheral IV Urinary Cath still in place: No Assessment/Plan Hospital Course Assessment: Normocytic anemia EGD/Colonoscopy 12/15/18- at [facility] Portal hypertensive gastropathy Normal esophagus without evidence of varices Normal duodenum Normal colonic mucosa Hemorrhoids Coagulopathy Alcoholic hepatitis- DF 21.5- guidelines do not recommend starting Methylprednisolone therapy for DF less than 32 -Transaminitis with direct hyperbilirubinemia-likely multifactorial -Mild dilatation of common bile duct on ultrasound -No definite stones or ductal dilatation on MRCP -limited study due to motion artifact Hepatic steatosis Hepatosplenomegaly Hepatitis C antibody positive- RNA Alcohol abuse Bandemia Homelessness Plan: Hemorrhoidal hygiene- will add fiber Continue regimen Monitor labs- will recheck CBC, CMP in am Monitor H/H- transfuse for Hgb less than 7.5 Patient seen in collaboration with Dr. Ortiz Subjective: Pt currently have episodes BRBPR- likely 2/2 to hemorrhoidal bleed- using cream and supp- did help until today Encourage ambulation, not sitting on th toilet for longer than 5 min. Will recheck INR PHYSICAL EXAMINATION: GENERAL: Well developed, obese, well nourished, alert & oriented x 3, in no acute distress SKIN: No lesions, jaundice, no evidence of bleeding diathesis HEAD: Normocephalic, atraumatic, no tenderness. EYES: Pupils equal reactive to light, no discharge. EARS/NOSE AND THROAT: Ears normal, nose normal NECK: Supple, no masses CHEST: Inspection within normal limits. CARDIOVASCULAR: Heart: Regular rate and rhythm RESPIRATORY: Lungs clear to auscultation and percussion, no wheezing, no rubs GASTROINTESTINAL AND LIVER: Abdomen: Soft, generalized abdominal tenderness- improved, no hernias, no masses, hepatomegaly, no rebound tenderness, normoactive bowel sounds. Rectal: Deferred. GENITOURINARY: Female genitalia within normal limits. EXTREMITIES: No cyanosis, clubbing or edema. Result Diagram: 01/02/19 0915 01/01/19 0525 Results 24hrs Laboratory Tests Test 01/02/19 06:50 01/02/19 09:15 01/02/19 12:07 01/02/19 12:09 Lab Scanned BLOOD TRANSFUSI REFERENCE LAB REFERENCE LAB Report ON White Blood 13.8 H Count Red Blood Count 2.64 L Hemoglobin 8.5 L Hematocrit 27.4 L Mean 103.8 H Corpuscular Volume Mean 32.2 Corpuscular Hemoglobin Mean 31.0 L Corpuscular Hemoglobin Conc ent Red Cell 21.1 H Distribution Width Platelet Count 374 Mean Platelet 9.7 Volume Immature 1.300 H Granulocytes % Neutrophils % 82.7 H Lymphocytes % 8.9 L Monocytes % 5.2 Eosinophils % 1.4 Basophils % 0.5 Nucleated Red 0.0 Blood Cells % Immature 0.180 H Granulocytes # Neutrophils # 11.4 H Lymphocytes # 1.2 Monocytes # 0.7 Eosinophils # 0.2 Basophils # 0.1 Nucleated Red 0.0 Blood Cells # Exam/Review of Systems Exam Vitals Vital Signs Date Temp Pulse Resp B/P (MAP) Pulse Ox O2 O2 Flow FiO2 Time Delivery Rate 01/02/19 98.0 97 20 106/56 96 07:54 (73) 01/01/19 Room Air 01:51 Intake and Output 01/01/19 01/01/19 01/02/19 1515:00 23:00 07:00 IntakeIntake Total 840 ml 1470 ml 200 ml BalanceBalance 840 ml 1470 ml 200 ml Results Results 24hrs Laboratory Tests Test 01/02/19 06:50 01/02/19 09:15 01/02/19 12:07 01/02/19 12:09 Lab Scanned BLOOD TRANSFUSI REFERENCE LAB REFERENCE LAB Report ON White Blood 13.8 H Count Red Blood Count 2.64 L Hemoglobin 8.5 L Hematocrit 27.4 L Mean 103.8 H Corpuscular Volume Mean 32.2 Corpuscular Hemoglobin Mean 31.0 L Corpuscular Hemoglobin Conc ent Red Cell 21.1 H Distribution Width Platelet Count 374 Mean Platelet 9.7 Volume Immature 1.300 H Granulocytes % Neutrophils % 82.7 H Lymphocytes % 8.9 L Monocytes % 5.2 Eosinophils % 1.4 Basophils % 0.5 Nucleated Red 0.0 Blood Cells % Immature 0.180 H Granulocytes # Neutrophils # 11.4 H Lymphocytes # 1.2 Monocytes # 0.7 Eosinophils # 0.2 Basophils # 0.1 Nucleated Red 0.0 Blood Cells # Medications Medication Current Medications IV Flush (NS 3 ml) 3 ml PER PROTOCOL IV ; Start 12/28/18 at 00:00 Ondansetron HCl (Zofran Inj) 4 mg Q6H PRN IV NAUSEA/VOMITING Last administered on 01/01/19 10:04; Admin Dose 4 MG; Start 12/28/18 at 00:00 Pantoprazole (Protonix Iv) 40 mg BID@,18 IV Last administered on 01/02/19 06:34; Admin Dose 40 MG; Start 12/28/18 at 00:00 Hyoscyamine (Levsin (Sl)) 0.125 mg Q8 PO Last administered on 01/02/19 06:34; Admin Dose 0.125 MG; Start 12/29/18 at 22:00 Skin Resp Fact/ Shark/Phenyl Mercur (Hemorrhoidal Supp) 1 ea TID PRN [place] HEMORROIDAL PAIN/ITCHING Last administered on 01/01/19 14:24; Admin Dose 1 EA; Start 12/29/18 at 19:30 Ketorolac Tromethamine (Toradol) 30 mg Q6H PRN IV PAIN LEVEL 1-3 Last adm inistered on 01/02/19 10:51; Admin Dose 30 MG; Start 12/30/18 at 14:00; Stop 01/02/19 at 13:59 Tramadol HCl (Ultram) 50 mg Q6H PRN PO MODERATE PAIN LEVEL 4-6 Last administered on 01/02/19 07:37; Admin Dose 50 MG; Start 12/30/18 at 14:00 Hydrocortisone (Proctozone-Hc) 1 applic BID [place] Last administered on 01/02/19 10:08; Admin Dose 1 APPLIC; Start 12/30/18 at 21:00 JUSTIN OCHOA Jan 02, 2019 13:25
[2019-01-02] MEDS ORDERED: HYOSCYAMINE 0.125 MG SUBL TAB PO PRN (13:30)
[2019-01-02 14:07] VITALS: BP 103/55; PULSE 93; RESP 20
[2019-01-02] MEDS: PSYLLIUM 28% PACKET PO SCH (14:44)
[2019-01-02] MEDS: ONDANSETRON 4 MG INJ IV PRN (15:56)
[2019-01-02] MEDS ORDERED: HYDROCODONE/APAP (5/325) TAB PO PRN (16:00)
[2019-01-02 20:00] VITALS: BP 105/58; PULSE 94; RESP 16
[2019-01-02] MEDS: HYDROCODONE/APAP (5/325) TAB PO PRN (21:56)
[2019-01-03 01:58] VITALS: BP 107/56; PULSE 92; RESP 17
[2019-01-03] MEDS: HYDROCODONE/APAP (5/325) TAB PO PRN ×3 (03:34→12:32)
[2019-01-03] MEDS: PANTOPRAZOLE 40 MG INJ IV SCH ×2 (06:37→18:00)
[2019-01-03 08:07] VITALS: BP 102/54; PULSE 92; RESP 17
[2019-01-03] MEDS: PSYLLIUM 28% PACKET PO SCH (08:09)
[2019-01-03] MEDS: HYDROCORTISONE 2.5% 30 GM RECT CR PR SCH ×2 (08:10→20:53)
[2019-01-03] MEDS: SKIN RESP FACT/SHARK/PH MERCU SUPP PR PRN (09:24)
--- NOTE | 2019-01-03 11:26 | PN ---
Date/Time of Note Date/Time of Note DATE: 01/03/19 TIME: 11:21 Assessment/Plan VTE Prophylaxis [place] [facility] risk: 1 [place]CD applied [place] [facility] No SCD contraindicated: other Pharmacological prophylaxis: NA/contraindicated Pharm contraindication: bleeding Lines/Catheters [facility] Saline Lock Urinary Cath still in place: No Assessment/Plan Hospital Course Assessment plan #Normocytic normal chromic anemia Suspect from reported hematochezia (has hemorrhoids) Continue to monitor H&H trend. GI consult is following s/p 1 PRBC 01.01.19 Still with worse anemia - reconsulted surgeon #Transaminitis with hyperbilirubinemia Etiology unclear MRCP negative (although limited from motion artifact) Suspect alcoholic hepatitis? No steroids per GI Hepatitis A (IgM negative). Hepatitis C RNA negative. Monitor LFT #Pulmonary hypertension PA systolic pressure 53 mmHg per echo Possibly from underlying liver pathology Monitor for now #Alcohol abuse Patient with reported change drinking Cessation advised #Hemorrhoids Continue local applications Monitor Disposition and plan. Reported rectal bleeding again. H&H downward trending. Check repeat level and transfuse as needed. surgeon to follow. monitor inhouse Discussed POC with Dr. Montiel Result Diagram: 01/03/19 0604 01/03/19 0603 Results 24hrs Laboratory Tests Test 01/02/19 12:07 01/02/19 12:09 01/02/19 14:04 01/02/19 21:15 Lab Scanned REFERENCE LAB REFERENCE LAB Report Prothrombin Time 16.5 H Prothrombin Time 1.3 Ratio INR 1.32 International Normalized Ratio Urine Color DRE Urine Clarity CLEAR Urine pH 6.0 Urine Specific 1.009 [place] Urine Ketones NEGATIVE Urine Nitrite NEGATIVE Urine Bilirubin 1+ H Urine 2+ H Urobilinogen Urine Leukocyte NEGATIVE Esterase Urine 0 Microscopic RBC Urine 3 Microscopic WBC Urine Squamous FEW Epithelial Cells Urine Hemoglobin 1+ H Urine Glucose NEGATIVE Urine Total NEGATIVE Protein Test 01/03/19 06:03 01/03/19 06:04 Sodium Level 136 Potassium Level 3.9 Chloride Level 107 Carbon Dioxide 23 Level Anion Gap 6 Blood Urea 4 L Nitrogen Creatinine 0.69 Est Glomerular > 60 Filtrat Rate mL/min Glucose Level 84 Calcium Level 8.3 L Total Bilirubin 2.6 H Direct Bilirubin 1.30 H Indirect 1.3 H Bilirubin Aspartate Amino 365 H Transf (AST/SGOT ) Alanine 41 Aminotransferase (ALT/SGPT) Alkaline 174 H Phosphatase Total Protein 7.0 Albumin 2.4 L Globulin 4.60 H Albumin/Globulin 0.52 Ratio White Blood 11.4 H Count Red Blood Count 2.30 L Hemoglobin 7.4 L Hematocrit 23.5 L Mean Corpuscular 102.2 H Volume Mean Corpuscular 32.2 Hemoglobin Mean Corpuscular 31.5 L Hemoglobin [place] nt Red Cell 21.1 H Distribution Width Platelet Count 297 # Mean Platelet 9.5 Volume Immature 1.000 H Granulocytes % Neutrophils % Segmented 42 Neutrophils % (Manual) Band Neutrophils 43 H % (Manual) Lymphocytes % Lymphocytes % 10 L (Manual) Monocytes % Monocytes % 4 (Manual) Eosinophils % Basophils % Metamyelocytes % 1 H (manual) Nucleated Red 0.0 Blood Cells % Immature 0.110 H Granulocytes # Neutrophils # Neutrophils # 5.3 (Manual) Band Neutrophils 4.9 H # Lymphocytes 1.1 (Manual) Lymphocytes # Monocytes # Monocytes # 0.4 (Manual) Eosinophils # Basophils # Metamyelocytes # 0.1 H Nucleated Red Blood Cells # Platelet NORMAL Estimate Anisocytosis 2+ Macrocytosis 2+ Subjective 24 Hr Interval Summary Free Text/Dictation Patient still reports bleeding on rectal area when sitting down. Exam/Review of Systems Exam Vitals Vital Signs Date Temp Pulse Resp B/P (MAP) Pulse Ox O2 O2 Flow FiO2 Time Delivery Rate 01/03/19 98.5 92 17 102/54 100 08:07 (70) 01/01/19 Room Air 01:51 Intake and Output 01/02/19 01/02/19 01/03/19 1515:00 23:00 07:00 IntakeIntake Total 1000 ml 480 ml OutputOutput Total 100 ml BalanceBalance 1000 ml 480 ml -100 ml Exam Constitutional: alert, oriented Psych: nl mood/affect Head: normocephalic Eyes: nl conjunctiva Neck: supple, non-tender Respiratory: clear to auscultation Cardiovascular: other (regular rate) Gastrointestinal: soft, non-tender Musculoskeletal: nl extremities to inspection Neurological: BUSINESS ACCOUNT SPECIALIST II-XII intact, nl speech Results Results 24hrs Laboratory Tests Test 01/02/19 12:07 01/02/19 12:09 01/02/19 14:04 01/02/19 21:15 Lab Scanned REFERENCE LAB REFERENCE LAB Report Prothrombin Time 16.5 H Prothrombin Time 1.3 Ratio INR 1.32 International Normalized Ratio Urine Color DRE Urine Clarity CLEAR Urine pH 6.0 Urine Specific 1.009 [place] Urine Ketones NEGATIVE Urine Nitrite NEGATIVE Urine Bilirubin 1+ H Urine 2+ H Urobilinogen Urine Leukocyte NEGATIVE Esterase Urine 0 Microscopic RBC Urine 3 Microscopic WBC Urine Squamous FEW Epithelial Cells Urine Hemoglobin 1+ H Urine Glucose NEGATIVE Urine Total NEGATIVE Protein Test 01/03/19 06:03 01/03/19 06:04 Sodium Level 136 Potassium Level 3.9 Chloride Level 107 Carbon Dioxide 23 Level Anion Gap 6 Blood Urea 4 L Nitrogen Creatinine 0.69 Est Glomerular > 60 Filtrat Rate mL/min Glucose Level 84 Calcium Level 8.3 L Total Bilirubin 2.6 H Direct Bilirubin 1.30 H Indirect 1.3 H Bilirubin Aspartate Amino 365 H Transf (AST/SGOT ) Alanine 41 Aminotransferase (ALT/SGPT) Alkaline 174 H Phosphatase Total Protein 7.0 Albumin 2.4 L Globulin 4.60 H Albumin/Globulin 0.52 Ratio White Blood 11.4 H Count Red Blood Count 2.30 L Hemoglobin 7.4 L Hematocrit 23.5 L Mean Corpuscular 102.2 H Volume Mean Corpuscular 32.2 Hemoglobin Mean Corpuscular 31.5 L Hemoglobin [place] nt Red Cell 21.1 H Distribution Width Platelet Count 297 # Mean Platelet 9.5 Volume Immature 1.000 H Granulocytes % Neutrophils % Segmented 42 Neutrophils % (Manual) Band Neutrophils 43 H % (Manual) Lymphocytes % Lymphocytes % 10 L (Manual) Monocytes % Monocytes % 4 (Manual) Eosinophils % Basophils % Metamyelocytes % 1 H (manual) Nucleated Red 0.0 Blood Cells % Immature 0.110 H Granulocytes # Neutrophils # Neutrophils # 5.3 (Manual) Band Neutrophils 4.9 H # Lymphocytes 1.1 (Manual) Lymphocytes # Monocytes # Monocytes # 0.4 (Manual) Eosinophils # Basophils # Metamyelocytes # 0.1 H Nucleated Red Blood Cells # Platelet NORMAL Estimate Anisocytosis 2+ Macrocytosis 2+ Medications Medication Current Medications IV Flush (NS 3 ml) 3 ml PER PROTOCOL IV ; Start 12/28/18 at 00:00 Ondansetron HCl (Zofran Inj) 4 mg Q6H PRN IV NAUSEA/VOMITING Last administered on 01/02/19at 15:56; Admin Dose 4 MG; Start 12/28/18 at 00:00 Pantoprazole (Protonix Iv) 40 mg BID@,18 IV Last administered on 01/03/19 06:37; Admin Dose 40 MG; Start 12/28/18 at 00:00 Skin Resp Fact/ Shark/Phenyl Mercur (Hemorrhoidal Supp) [address] HEMORROIDAL PAIN/ITCHING Last administered on 01/03/19 09:24; Admin Dose 1 EA; Start 12/29/18 at 19:30 Tramadol HCl (Ultram) 50 mg Q6H PRN PO MODERATE PAIN LEVEL 4-6 Last administered on 01/02/19 14:43; Admin Dose 50 MG; Start 12/30/18 at 14:00 Hydrocortisone (Proctozone-Hc) [address] Last administered on 01/03/19 08:10; Admin Dose 1 APPLIC; Start 12/30/18 at 21:00 Hyoscyamine (Levsin (Sl)) 0.125 mg Q8H PRN PO abdominal cramping; Start 01/02/19 at 13:30 Psyllium Hydrophilic Mucilloid (Metamucil) 1 pkt DAILY PO Last administered on 01/03/19 08:09; Admin Dose 1 PKT; Start 01/02/19 at 13:30 Acetaminophen/ Hydrocodone Bitart ([place] (5/325)) 1 tab Q4H PRN PO MODERATE PAIN LEVEL 4-6 Last administered on 01/02/19 15:54; Admin Dose 1 TAB; Start 01/02/19 at 16:00 Acetaminophen/ Hydrocodone Bitart ([place] (5/325)) 2 tab Q4H PRN PO SEVERE PAIN LEVEL 7-10 Last administered on 01/03/19 08:10; Admin Dose 2 TAB; Start 01/02/19 at 16:00 CATHRYN MARRUFO NP Jan 03, 2019 11:26
--- NOTE | 2019-01-03 13:08 | PN ---
Date/Time of Note Date/Time of Note DATE: 01/03/19 TIME: 13:05 Assessment/Plan VTE Prophylaxis Risk score (from Nsg)>0 risk: 1 SCD applied (from Ns): No SCD contraindicated: low risk/ambulating Pharmacological prophylaxis: NA/contraindicated Pharm contraindication: bleeding, liver dx Lines/Catheters IV Catheter Type (from [facility]): Saline Lock Urinary Cath still in place: No Assessment/Plan Hospital Course Assessment: Normocytic anemia EGD/Colonoscopy 12/15/18- at [facility] hypertensive gastropathy Normal esophagus without evidence of varices Normal duodenum Normal colonic mucosa Hemorrhoids Coagulopathy- improving Alcoholic hepatitis- DF 21.5- guidelines do not recommend starting Methylpred nisolone therapy for DF less than 32 -Transaminitis- (increasing) with direct hyperbilirubinemia-improving -Mild dilatation of common bile duct on ultrasound -No definite stones or ductal dilatation on MRCP -limited study due to motion artifact Hepatic steatosis Hepatosplenomegaly Hepatitis C antibody positive- RNA Alcohol abuse Bandemia Homelessness Plan: Recommend d/c [place] tabs Pt with increased upper abd pain- will order CT abd/;pelvis with contrast Monitor labs- will recheck CBC, CMP in am Monitor H/H- transfuse for Hgb less than 7.5- blood transfusion ordered Patient seen in collaboration with Dr. Ortiz Subjective: pt continues to have rectal bleeding with a drop in HGB- surgery reconsulted Pt also c/o RUQ pain - 5/10 with pain medication. Will order additional imaging Tolerating diet well. No c/o n/v. PHYSICAL EXAMINATION: GENERAL: Well developed, obese, well nourished, alert & oriented x 3, in no acute distress SKIN: No lesions, jaundice, no evidence of bleeding diathesis HEAD: Normocephalic, atraumatic, no tenderness. EYES: Pupils equal reactive to light, no discharge. EARS/NOSE AND THROAT: Ears normal, nose normal NECK: Supple, no masses CHEST: Inspection within normal limits. CARDIOVASCULAR: Heart: Regular rate and rhythm RESPIRATORY: Lungs clear to auscultation and percussion, no wheezing, no rubs GASTROINTESTINAL AND LIVER: Abdomen: Soft, generalized abdominal tenderness- improved, no hernias, no masses, hepatomegaly, no rebound tenderness, normoactive bowel sounds. Rectal: Deferred. GENITOURINARY: Female genitalia within normal limits. EXTREMITIES: No cyanosis, clubbing or edema. Result Diagram: 01/03/19 0604 01/03/19 0603 Results 24hrs Laboratory Tests Test 01/02/19 14:04 01/02/19 21:15 01/03/19 06:03 01/03/19 06:04 Prothrombin Time 16.5 H Prothrombin Time 1.3 Ratio INR International 1.32 Normalized Ratio Urine Color DRE Urine Clarity CLEAR Urine pH 6.0 Urine Specific 1.009 [place] Urine Ketones NEGATIVE Urine Nitrite NEGATIVE Urine Bilirubin 1+ H Urine Urobilinogen 2+ H Urine Leukocyte NEGATIVE Esterase Urine Microscopic 0 RBC Urine Microscopic 3 WBC Urine Squamous FEW Epithelial Cells Urine Hemoglobin 1+ H Urine Glucose NEGATIVE Urine Total Protein NEGATIVE Sodium Level 136 Potassium Level 3.9 Chloride Level 107 Carbon Dioxide Level 23 Anion Gap 6 Blood Urea Nitrogen 4 L Creatinine 0.69 Est Glomerular > 60 Filtrat Rate mL/min Glucose Level 84 Calcium Level 8.3 L Total Bilirubin 2.6 H Direct Bilirubin 1.30 H Indirect Bilirubin 1.3 H Aspartate Amino 365 H Transf (AST/SGOT) Alanine 41 Aminotransferase (AL T/SGPT) Alkaline Phosphatase 174 H Total Protein 7.0 Albumin 2.4 L Globulin 4.60 H Albumin/Globulin 0.52 Ratio White Blood Count 11.4 H Red Blood Count 2.30 L Hemoglobin 7.4 L Hematocrit 23.5 L Mean Corpuscular 102.2 H Volume Mean Corpuscular 32.2 Hemoglobin Mean Corpuscular 31.5 L Hemoglobin Concent Red Cell 21.1 H Distribution Width Platelet Count 297 # Mean Platelet Volume 9.5 Immature 1.000 H Granulocytes % Neutrophils % Segmented 42 Neutrophils % (Manual) Band Neutrophils % 43 H (Manual) Lymphocytes % Lymphocytes % 10 L (Manual) Monocytes % Monocytes % (Manual) 4 Eosinophils % Basophils % Metamyelocytes % 1 H (manual) Nucleated Red Blood 0.0 Cells % Immature 0.110 H Granulocytes # Neutrophils # Neutrophils # 5.3 (Manual) Band Neutrophils # 4.9 H Lymphocytes (Manual) 1.1 Lymphocytes # Monocytes # Monocytes # (Manual) 0.4 Eosinophils # Basophils # Metamyelocytes # 0.1 H Nucleated Red Blood Cells # Platelet Estimate NORMAL Anisocytosis 2+ Macrocytosis 2+ Exam/Review of Systems Exam Vitals Vital Signs Date Temp Pulse Resp B/P (MAP) Pulse Ox O2 O2 Flow FiO2 Time Delivery Rate 01/03/19 98.5 92 17 102/54 100 08:07 (70) 01/01/19 Room Air 01:51 Intake and Output 01/02/19 01/02/19 01/03/19 1515:00 23:00 07:00 IntakeIntake Total 1000 ml 480 ml OutputOutput Total 100 ml BalanceBalance 1000 ml 480 ml -100 ml Results Results 24hrs Laboratory Tests Test 01/02/19 14:04 01/02/19 21:15 01/03/19 06:03 01/03/19 06:04 Prothrombin Time 16.5 H Prothrombin Time 1.3 Ratio INR International 1.32 Normalized Ratio Urine Color DRE Urine Clarity CLEAR Urine pH 6.0 Urine Specific 1.009 [place] Urine Ketones NEGATIVE Urine Nitrite NEGATIVE Urine Bilirubin 1+ H Urine Urobilinogen 2+ H Urine Leukocyte NEGATIVE Esterase Urine Microscopic 0 RBC Urine Microscopic 3 WBC Urine Squamous FEW Epithelial Cells Urine Hemoglobin 1+ H Urine Glucose NEGATIVE Urine Total Protein NEGATIVE Sodium Level 136 Potassium Level 3.9 Chloride Level 107 Carbon Dioxide Level 23 Anion Gap 6 Blood Urea Nitrogen 4 L Creatinine 0.69 Est Glomerular > 60 Filtrat Rate mL/min Glucose Level 84 Calcium Level 8.3 L Total Bilirubin 2.6 H Direct Bilirubin 1.30 H Indirect Bilirubin 1.3 H Aspartate Amino 365 H Transf (AST/SGOT) Alanine 41 Aminotransferase (AL T/SGPT) Alkaline Phosphatase 174 H Total Protein 7.0 Albumin 2.4 L Globulin 4.60 H Albumin/Globulin 0.52 Ratio White Blood Count 11.4 H Red Blood Count 2.30 L Hemoglobin 7.4 L Hematocrit 23.5 L Mean Corpuscular 102.2 H Volume Mean Corpuscular 32.2 Hemoglobin Mean Corpuscular 31.5 L Hemoglobin Concent Red Cell 21.1 H Distribution Width Platelet Count 297 # Mean Platelet Volume 9.5 Immature 1.000 H Granulocytes % Neutrophils % Segmented 42 Neutrophils % (Manual) Band Neutrophils % 43 H (Manual) Lymphocytes % Lymphocytes % 10 L (Manual) Monocytes % Monocytes % (Manual) 4 Eosinophils % Basophils % Metamyelocytes % 1 H (manual) Nucleated Red Blood 0.0 Cells % Immature 0.110 H Granulocytes # Neutrophils # Neutrophils # 5.3 (Manual) Band Neutrophils # 4.9 H Lymphocytes (Manual) 1.1 Lymphocytes # Monocytes # Monocytes # (Manual) 0.4 Eosinophils # Basophils # Metamyelocytes # 0.1 H Nucleated Red Blood Cells # Platelet Estimate NORMAL Anisocytosis 2+ Macrocytosis 2+ Medications Medication Current Medications IV Flush (NS 3 ml) 3 ml PER PROTOCOL IV ; Start 12/28/18 at 00:00 Ondansetron HCl (Zofran Inj) 4 mg Q6H PRN IV NAUSEA/VOMITING Last administered on 01/02/19 15:56; Admin Dose 4 MG; Start 12/28/18 at 00:00 Pantoprazole (Protonix Iv) 40 mg BID@06,18 IV Last administered on 01/03/19 06:37; Admin Dose 40 MG; Start 12/28/18 at 00:00 Skin Resp Fact/ Shark/Phenyl Mercur (Hemorrhoidal Supp) 1 ea TID PRN [place] HEMORROIDAL PAIN/ITCHING Last administered on 01/03/19 09:24; Admin Dose 1 EA; Start 12/29/18 at 19:30 Tramadol HCl (Ultram) 50 mg Q6H PRN PO MODERATE PAIN LEVEL 4-6 Last administered on 01/02/19 14:43; Admin Dose 50 MG; Start 12/30/18 at 14:00 Hydrocortisone (Proctozone-Hc) 1 applic BID [place] Last administered on 01/03/19 08:10; Admin Dose 1 APPLIC; Start 12/30/18 at 21:00 Hyoscyamine (Levsin (Sl)) 0.125 mg Q8H PRN PO abdominal cramping; Start 01/02/19 at 13:30 Psyllium Hydrophilic Mucilloid (Metamucil) 1 pkt DAILY PO Last administered on 01/03/19 08:09; Admin Dose 1 PKT; Start 01/02/19 at 13:30 Acetaminophen/ Hydrocodone Bitart ([place] (5/325)) 1 tab Q4H PRN PO MODERATE PAIN LEVEL 4-6 Last administered on 01/02/19 15:54; Admin Dose 1 TAB; Start 01/02/19 at 16:00 Acetaminophen/ Hydrocodone Bitart ([place] (5/325)) 2 tab Q4H PRN PO SEVERE PAIN LEVEL 7-10 Last administered on 01/03/19 12:32; Admin Dose 2 TAB; Start 01/02/19 at 16:00 JUSTIN OCHOA Jan 03, 2019 13:08
[2019-01-03] MEDS ORDERED: BARIUM SULF 2% 450 ML BTL (BERRY SMOOTHIE) PO ONE (13:30)
[2019-01-03] MEDS: ONDANSETRON 4 MG INJ IV PRN (14:29)
[2019-01-03 15:01] VITALS: BP 105/58; PULSE 96; RESP 17
[2019-01-03] MEDS ORDERED: SOD CHLORIDE 0.9% 100 ML ONE (16:33)
[2019-01-03] MEDS ORDERED: IOHEXOL 300MG/ML 150 ML BTL ONE (16:33)
[2019-01-03] MEDS: traMADol 50 MG TAB PO PRN ×2 (16:49→22:53)
[2019-01-03 20:37] VITALS: BP 114/57; PULSE 101; RESP 16
[2019-01-04 02:00] VITALS: BP 122/68; PULSE 99; RESP 16
[2019-01-04] MEDS: PANTOPRAZOLE 40 MG INJ IV SCH ×2 (05:15→17:21)
[2019-01-04] MEDS: traMADol 50 MG TAB PO PRN ×4 (05:15→23:08)
--- NOTE | 2019-01-04 07:39 | QN ---
Documentation Comment Continues with painless rectal bleeding and gradual drop in hemoglobin. Plan: Hemorrhoidectomy tomorrow morning. The procedure and risks have been discussed. RUDI SEVILLA MD Jan 04, 2019 07:39
[2019-01-04 07:48] VITALS: BP 108/69; PULSE 95; RESP 18
[2019-01-04] MEDS: HYDROCORTISONE 2.5% 30 GM RECT CR PR SCH ×2 (09:04→21:15)
[2019-01-04] MEDS: PSYLLIUM 28% PACKET PO SCH (09:04)
[2019-01-04] MEDS ORDERED: SOD CHLORIDE 0.9% 250 ML IV* ONE (09:08)
[2019-01-04] MEDS: ONDANSETRON 4 MG INJ IV PRN (12:32)
--- NOTE | 2019-01-04 13:27 | PN ---
Date/Time of Note Date/Time of Note DATE: 01/04/19 TIME: 13:23 Assessment/Plan VTE Prophylaxis Risk score (from [facility])>0 risk: 1 SCD applied (from [facility]): No SCD contraindicated: other Pharmacological prophylaxis: NA/contraindicated Pharm contraindication: bleeding Lines/Catheters IV Catheter Type (from [facility]): Saline Lock Urinary Cath still in place: No Assessment/Plan Hospital Course Assessment plan #Normocytic normal chromic anemia Suspect from reported hematochezia (has hemorrhoids) Continue to monitor H&H trend. GI consult is following s/p 1 PRBC 01.01.19 Still with worse anemia - surgeon following plan for repeat blood transfusion today #Transaminitis with hyperbilirubinemia Etiology unclear MRCP negative (although limited from motion artifact) Suspect alcoholic hepatitis? No steroids per GI Hepatitis A (IgM negative). Hepatitis C RNA negative. Monitor LFT #Pulmonary hypertension PA systolic pressure 53 mmHg per echo Possibly from underlying liver pathology Monitor for now #Alcohol abuse Patient with reported change drinking Cessation advised #Hemorrhoids Continue local applications Monitor Disposition and plan. transfuse prbc today. plan for hemorrhoidectomy January 05, 2019. monitor inhouse Discussed POC with Dr. Montiel Result Diagram: 01/04/19 0532 01/04/19 0532 Results 24hrs Laboratory Tests Test 01/03/19 13:56 01/04/19 05:32 Hemoglobin 7.4 L 7.2 L Hematocrit 23.6 L 23.0 L White Blood Count 12.6 H Red Blood Count 2.22 L Mean Corpuscular Volume 103.6 H Mean Corpuscular Hemoglobin 32.4 Mean Corpuscular Hemoglobin Concent 31.3 L Red Cell Distribution Width 21.2 H Platelet Count 321 Mean Platelet Volume 9.5 Immature Granulocytes % 1.000 H Neutrophils % 79.1 H Lymphocytes % 14.5 L Monocytes % 4.1 Eosinophils % 0.7 Basophils % 0.6 Nucleated Red Blood Cells % 0.0 Immature Granulocytes # 0.120 H Neutrophils # 10.0 H Lymphocytes # 1.8 Monocytes # 0.5 Eosinophils # 0.1 Basophils # 0.1 Nucleated Red Blood Cells # 0.0 Sodium Level 137 Potassium Level 4.1 Chloride Level 105 Carbon Dioxide Level 25 Anion Gap 7 Blood Urea Nitrogen 2 L Creatinine 0.66 Est Glomerular Filtrat Rate mL/min > 60 Glucose Level 85 Calcium Level 8.5 Subjective 24 Hr Interval Summary Free Text/Dictation comfortable at present. no specific complaints Exam/Review of Systems Exam Vitals Vital Signs Date Temp Pulse Resp B/P (MAP) Pulse Ox O2 O2 Flow FiO2 Time Delivery Rate 01/04/19 98.6 95 18 108/69 98 Room Air 07:48 (82) Intake and Output 01/03/19 01/03/19 01/04/19 1515:00 23:00 07:00 IntakeIntake Total 520 ml 700 ml BalanceBalance 520 ml 700 ml Exam Constitutional: alert, oriented Psych: nl mood/affect Head: normocephalic Eyes: nl conjunctiva Neck: supple, non-tender Respiratory: clear to auscultation Cardiovascular: other (regular rate) Gastrointestinal: soft, non-tender Musculoskeletal: nl extremities to inspection Neurological: SQL REPORT ANALYST II-XII intact, nl speech Results Results 24hrs Laboratory Tests Test 01/03/19 13:56 01/04/19 05:32 Hemoglobin 7.4 L 7.2 L Hematocrit 23.6 L 23.0 L White Blood Count 12.6 H Red Blood Count 2.22 L Mean Corpuscular Volume 103.6 H Mean Corpuscular Hemoglobin 32.4 Mean Corpuscular Hemoglobin Concent 31.3 L Red Cell Distribution Width 21.2 H Platelet Count 321 Mean Platelet Volume 9.5 Immature Granulocytes % 1.000 H Neutrophils % 79.1 H Lymphocytes % 14.5 L Monocytes % 4.1 Eosinophils % 0.7 Basophils % 0.6 Nucleated Red Blood Cells % 0.0 Immature Granulocytes # 0.120 H Neutrophils # 10.0 H Lymphocytes # 1.8 Monocytes # 0.5 Eosinophils # 0.1 Basophils # 0.1 Nucleated Red Blood Cells # 0.0 Sodium Level 137 Potassium Level 4.1 Chloride Level 105 Carbon Dioxide Level 25 Anion Gap 7 Blood Urea Nitrogen 2 L Creatinine 0.66 Est Glomerular Filtrat Rate mL/min > 60 Glucose Level 85 Calcium Level 8.5 Medications Medication Current Medications IV Flush (NS 3 ml) 3 ml PER PROTOCOL IV ; Start 12/28/18 at 00:00 Ondansetron HCl (Zofran Inj) 4 mg Q6H PRN IV NAUSEA/VOMITING Last administered on 01/04/19at 12:32; Admin Dose 4 MG; Start 12/28/18 at 00:00 Pantoprazole (Protonix Iv) 40 mg BID@06,18 IV Last administered on 01/04/19 05:15; Admin Dose 40 MG; Start 12/28/18 at 00:00 Skin Resp Fact/ Shark/Phenyl Mercur (Hemorrhoidal Supp) 1 ea TID PRN DC HEMORROIDAL PAIN/ITCHING Last administered on 01/03/19 09:24; Admin Dose 1 EA; Start 12/29/18 at 19:30 Hydrocortisone (Proctozone-Hc) 1 applic BID DC Last administered on 01/04/19 09:04; Admin Dose 1 APPLIC; Start 12/30/18 at 21:00 Hyoscyamine (Levsin (Sl)) 0.125 mg Q8H PRN PO abdominal cramping; Start 01/02/19 at 13:30 Psyllium Hydrophilic Mucilloid (Metamucil) 1 pkt DAILY PO Last administered on 01/04/19 09:04; Admin Dose 1 PKT; Start 01/02/19 at 13:30 Tramadol HCl (Ultram) 100 mg Q6H PRN PO MODERATE PAIN LEVEL 4-6 Last administered on 01/04/19 11:23; Admin Dose 100 MG; Start 01/03/19 at 14:00 CATHRYN MARRUFO NP Jan 04, 2019 13:27
[2019-01-04 14:28] VITALS: BP 100/51; PULSE 97; RESP 18
--- NOTE | 2019-01-04 17:28 | PREAC ---
Date/Time of Note Date/Time of Note DATE: 01/04/19 TIME: 17:28 Anesthesia Eval and Record Evaluation Time Pre-Procedure Interview DATE: 01/04/19 TIME: 17:28 Age 33 Sex female NPO: 8 hrs Preoperative diagnosis rectal bleeding Planned procedure TOTAL HEMORRHOIDECTOMY Past Medical History Past Medical History: Includes GI: Morbid obesity Heme: Anemia Recreational drugs: Other (ETOH) Surgery & Anesthesia Issues No known issue Meds Anticoagulation: No Beta Arlette within 24 hr: No Reason Beta Arlette not given: Pt. not on B-Arlette Current Medications IV Flush (NS 3 ml) 3 ml PER PROTOCOL IV ; Start 12/28/18 at 00:00 Ondansetron HCl (Zofran Inj) 4 mg Q6H PRN IV NAUSEA/VOMITING Last administered on 01/04/19 12:32; Admin Dose 4 MG; Start 12/28/18 at 00:00 Pantoprazole (Protonix Iv) 40 mg BID@06,18 IV Last administered on 01/04/19 17:21; Admin Dose 40 MG; Start 12/28/18 at 00:00 Skin Resp Fact/ Shark/Phenyl Mercur (Hemorrhoidal Supp) 1 ea TID PRN DE HEMORROIDAL PAIN/ITCHING Last administered on 01/03/19 09:24; Admin Dose 1 EA; Start 12/29/18 at 19:30 Hydrocortisone (Proctozone-Hc) 1 applic BID DE Last administered on 01/04/19 09:04; Admin Dose 1 APPLIC; Start 12/30/18 at 21:00 Hyoscyamine (Levsin (Sl)) 0.125 mg Q8H PRN PO abdominal cramping Last administered on 01/04/19 14:21; Admin Dose 0.125 MG; Start 01/02/19 at 13:30 Psyllium Hydrophilic Mucilloid (Metamucil) 1 pkt DAILY PO Last administered on 01/04/19 09:04; Admin Dose 1 PKT; Start 01/02/19 at 13:30 Tramadol HCl (Ultram) 100 mg Q6H PRN PO MODERATE PAIN LEVEL 4-6 Last administered on 01/04/19 17:21; Admin Dose 100 MG; Start 01/03/19 at 14:00 Meds reviewed: Yes Allergies Coded Allergies: No Known Allergy (Unverified , 12/27/18) Allergies Reviewed: Yes Labs/Studies Labs Reviewed: Reviewed by anesthesiologist Result Diagram: 01/04/19 0532 01/04/19 0532 Laboratory Tests 01/04/19 05:32 Blood Bank Test 01/04/19 09:35 Antibody Screen NEGATIVE Blood Product Summary Counts Blood Type O POSITIVE Crossmatch Red Blood Cells test: Negative Studies: 2D Echo (EF 55%) Pre-procedure Exam Last vitals Vital Signs Date Temp Pulse Resp B/P (MAP) Pulse Ox O2 O2 Flow FiO2 Time Delivery Rate 01/04/19 98.8 97 18 100/51 98 Room Air 14:28 (67) Airway: Adequate mouth opening Mallampati: Mallampati II Teeth: Normal Lung: Normal Heart: Normal ASA Physical Status ASA physical status: 2 Emergency: None Planned Anesthetic General/MAC: ETT Pre-operative Attestations Prior to commencing anesthesia and surgery, the patient was re-evaluated, there was verification of: *The patient's identity *The results of appropriate recent lab work and preoperative vital signs *The above evaluation not changing prior to induction *Anesthetic plan, risk benefits, alternative and complications discussed with patient/family; questions answered; patient/family understands, accepts and wishes to proceed. DOMINGA LOWE Jan 04, 2019 17:28
[2019-01-04 20:20] VITALS: BP 101/58; PULSE 98; RESP 18
[2019-01-05] VITALS (20 sets, daily range): BP systolic 86–133; BP diastolic 45–74; PULSE 66–106; RESP 12–29
[2019-01-05] MEDS: PANTOPRAZOLE 40 MG INJ IV SCH ×2 (06:33→17:52)
[2019-01-05] MEDS ORDERED: ROCURONIUM 50 MG INJ ONE (07:21)
[2019-01-05] MEDS ORDERED: LIDOCAINE 2% (SDV) 5 ML INJ ONE (07:21)
[2019-01-05] MEDS ORDERED: MIDAZOLAM 1 MG/ML 2 ML INJ ONE (07:21)
[2019-01-05] MEDS ORDERED: PROPOFOL 20 ML ONE (07:21)
[2019-01-05] MEDS ORDERED: CEFAZOLIN 1 GM INJ ONE (07:21)
[2019-01-05] MEDS ORDERED: HYDROmorphONE 2 MG/ML SYG ONE (07:21)
[2019-01-05] MEDS ORDERED: BUPIVACAINE 0.5%/EPI (SDV) 30 ML INJ ONE (07:28)
--- NOTE | 2019-01-05 07:42 | HPN ---
Date/Time of Note Date/Time of Note DATE: 01/05/19 TIME: 07:41 Interval H&P Admission Note Pt. seen H&P reviewed: No system changes RUDI SEVILLA MD Jan 05, 2019 07:42
[2019-01-05] MEDS ORDERED: FAMOTIDINE 20 MG INJ ONE (08:14)
[2019-01-05] MEDS ORDERED: METOCLOPRAMIDE 10 MG INJ ONE (08:14)
[2019-01-05] MEDS ORDERED: ONDANSETRON 4 MG INJ ONE (08:14)
[2019-01-05] MEDS ORDERED: DEXAMETHASONE 4 MG/ML 5 ML INJ ONE (08:14)
[2019-01-05] MEDS ORDERED: SUGAMMADEX SODIUM 200 MG/2 ML VIAL IV ONE (08:33)
--- NOTE | 2019-01-05 08:48 | OPR ---
Date/Time of Note Date/Time of Note DATE: 01/05/19 TIME: 08:45 Operative Report Procedure Date: Jan 05, 2019 Preoperative Diagnosis Third-degree hemorrhoids with intractable bleeding Postoperative Diagnosis Third-degree hemorrhoids with intractable bleeding Operation/Procedure Performed Total internal and external hemorrhoidectomy Surgeon Rudi Sevilla MD Lean Manager None Anesthesia Type: general Anesthesiologist: FLACO CARLTON Estimated Blood Loss: minimal Transfusion none Specimen 4 hemorrhoids Grafts/Implants none Tubes/Drains None Complications none Pt Condition Post Procedure: stable Disposition: PACU Indications Refractory bleeding and anemia Procedure Description After satisfactory general anesthesia was achieved, the patient was placed in Honorio stirrups and the perineum was prepped and draped in usual fashion. A rectal speculum was inserted and showed 4 clusters of hemorrhoids which are partially prolapsing. These were at 247 and 10:00. There were no intrarectal abnormalities. In each case a Santa clamp was placed on the external component of the hemorrhoid. The base of the hemorrhoid was divided with impact LigaSure achieving external and internal hemorrhoidectomy. In this fashion all 4 clusters of hemorrhoids were excised. All 4 thermal lines were oversewn with running interlocking 201 3-0 chromic. Hemostasis was total. The wound was infiltrated with 30 cc of 0.5% Marcaine with epinephrine. Sponge and needle counts were reported as correct x2. RUDI SEVILLA MD Jan 05, 2019 08:48
[2019-01-05] MEDS ORDERED: MIDAZOLAM 1 MG/ML 2 ML INJ IV PRN (09:00)
[2019-01-05] MEDS ORDERED: morphine 2 MG INJ IV PRN (09:00)
[2019-01-05] MEDS ORDERED: ONDANSETRON 4 MG INJ IV PRN ×2 (09:00)
[2019-01-05] MEDS ORDERED: MEPERIDINE 25 MG INJ IV PRN (09:00)
[2019-01-05] MEDS: PSYLLIUM 28% PACKET PO SCH ×2 (09:00→11:08)
[2019-01-05] MEDS ORDERED: HYDROmorphONE 1 MG/5 ML IV SYRINGE IV PRN ×3 (09:00)
[2019-01-05] MEDS: HYDROCORTISONE 2.5% 30 GM RECT CR PR SCH ×2 (09:00→20:21)
[2019-01-05] MEDS ORDERED: OXYCODONE/ACETAMINOPHEN (5/325) TAB PO PRN ×3 (09:00)
[2019-01-05] MEDS ORDERED: LORAZEPAM 2 MG INJ IV PRN (09:30)
--- NOTE | 2019-01-05 10:16 | PAC ---
Date/Time of Note Date/Time of Note DATE: 01/05/19 TIME: 10:16 Post-Anesthesia Notes Post-Anesthesia Note Last documented vital signs Vital Signs Date Temp Pulse Resp B/P (MAP) Pulse Ox O2 O2 Flow FiO2 Time Delivery Rate 01/05/19 98.6 101 19 112/56 96 Nasal 10:10 (74) Cannula 01/05/19 2.0 09:24 Activity: WNL Respiratory function: WNL Cardiovascular function: WNL Mental status: Baseline Pain reasonably controlled: Yes Hydration appropriate: Yes Nausea/Vomiting absent: Yes FLACO CARLTON Jan 05, 2019 10:16
--- NOTE | 2019-01-05 11:30 | PN ---
Date/Time of Note Date/Time of Note DATE: 01/05/19 TIME: 11:23 Assessment/Plan VTE Prophylaxis Risk score (from [facility])>0 risk: 1 SCD applied (from [facility]): No SCD contraindicated: low risk/ambulating Pharmacological prophylaxis: NA/contraindicated Pharm contraindication: low risk/ambulating Lines/Catheters IV [facility] (from [facility] Saline Lock Urinary Cath still in place: No Assessment/Plan Hospital Course Assessment: Normocytic anemia EGD/Colonoscopy 12/15/18- at [facility] Portal hypertensive gastropathy Normal esophagus without evidence of varices Normal duodenum Normal colonic mucosa Hemorrhoids Coagulopathy- improving Alcoholic hepatitis- DF 21.5- guidelines do not recommend starting Methylpre dnisolone therapy for DF less than 32 -Transaminitis- (increasing) with direct hyperbilirubinemia-improving -Mild dilatation of common bile duct on ultrasound -No definite stones or ductal dilatation on MRCP -limited study due to motion artifact Hepatic steatosis Liver is markedly enlarged measuring 30 cm in length. It is of normal contour. Splenomegaly Hepatitis C antibody positive- RNA Alcohol abuse Bandemia Homelessness Plan: No new findings on CT- LFTs continue to increase S/p hemorrhoidectomy today- patien Patient seen in collaboration with Dr. Ortiz Subjective: Patient resting in bed, family at bedside C/o rectal pain to be expected. No current bleeding at this time PHYSICAL EXAMINATION: GENERAL: Well developed, obese, well nourished, alert & oriented x 3, in no acute distress SKIN: No lesions, jaundice, no evidence of bleeding diathesis HEAD: Normocephalic, atraumatic, no tenderness. EYES: Pupils equal reactive to light, no discharge. EARS/NOSE AND THROAT: Ears normal, nose normal NECK: Supple, no masses CHEST: Inspection within normal limits. CARDIOVASCULAR: Heart: Regular rate and rhythm RESPIRATORY: Lungs clear to auscultation and percussion, no wheezing, no rubs GASTROINTESTINAL AND LIVER: Abdomen: Soft, generalized abdominal tenderness- improved, no hernias, no masses, hepatomegaly, no rebound tenderness, normoactive bowel sounds. Rectal: Deferred. GENITOURINARY: Female genitalia within normal limits. EXTREMITIES: No cyanosis, clubbing or edema. Result Diagram: 01/05/19 0557 01/05/19 0557 Results 24hrs Laboratory Tests Test 01/05/19 05:57 White Blood Count 11.4 H Red Blood Count 2.42 L Hemoglobin 7.9 L Hematocrit 24.5 L Mean Corpuscular Volume 101.2 H Mean Corpuscular Hemoglobin 32.6 Mean Corpuscular Hemoglobin Concent 32.2 Red Cell Distribution Width 21.4 H Platelet Count 315 Mean Platelet Volume 9.7 Immature Granulocytes % 0.800 H Neutrophils % 79.6 H Lymphocytes % 13.5 L Monocytes % 4.7 Eosinophils % 1.0 Basophils % 0.4 Nucleated Red Blood Cells % 0.0 Immature Granulocytes # 0.090 H Neutrophils # 9.1 H Lymphocytes # 1.5 Monocytes # 0.5 Eosinophils # 0.1 Basophils # 0.0 Nucleated Red Blood Cells # 0.0 Sodium Level 137 Potassium Level 4.2 Chloride Level 103 Carbon Dioxide Level 29 Anion Gap 5 Blood Urea Nitrogen < 2 L Creatinine 0.64 Est Glomerular Filtrat Rate mL/min > 60 Glucose Level 84 Calcium Level 8.5 Exam/Review of Systems Exam Vitals Vital Signs Date Temp Pulse Resp B/P (MAP) Pulse Ox O2 O2 Flow FiO2 Time Delivery Rate 01/05/19 98.6 101 19 112/56 96 Nasal 10:10 (74) Cannula 01/05/19 2.0 09:24 Intake and Output 01/04/19 01/04/19 01/05/19 1414:59 22:59 06:59 IntakeIntake Total 240 ml 1350 ml BalanceBalance 240 ml 1350 ml Results Results 24hrs Laboratory Tests Test 01/05/19 05:57 White Blood Count 11.4 H Red Blood Count 2.42 L Hemoglobin 7.9 L Hematocrit 24.5 L Mean Corpuscular Volume 101.2 H Mean Corpuscular Hemoglobin 32.6 Mean Corpuscular Hemoglobin Concent 32.2 Red Cell Distribution Width 21.4 H Platelet Count 315 Mean Platelet Volume 9.7 Immature Granulocytes % 0.800 H Neutrophils % 79.6 H Lymphocytes % 13.5 L Monocytes % 4.7 Eosinophils % 1.0 Basophils % 0.4 Nucleated Red Blood Cells % 0.0 Immature Granulocytes # 0.090 H Neutrophils # 9.1 H Lymphocytes # 1.5 Monocytes # 0.5 Eosinophils # 0.1 Basophils # 0.0 Nucleated Red Blood Cells # 0.0 Sodium Level 137 Potassium Level 4.2 Chloride Level 103 Carbon Dioxide Level 29 Anion Gap 5 Blood Urea Nitrogen < 2 L Creatinine 0.64 Est Glomerular Filtrat Rate mL/min > 60 Glucose Level 84 Calcium Level 8.5 Medications Medication Current Medications IV Flush (NS 3 ml) 3 ml PER PROTOCOL IV ; Start 12/28/18 at 00:00 Ondansetron HCl (Zofran Inj) 4 mg Q6H PRN IV NAUSEA/VOMITING Last administered on 01/04/19 12:32; Admin Dose 4 MG; Start 12/28/18 at 00:00 Pantoprazole (Protonix Iv) 40 mg BID@06,18 IV Last administered on 01/05/19 06:33; Admin Dose 40 MG; Start 12/28/18 at 00:00 Skin Resp Fact/ Shark/Phenyl Mercur (Hemorrhoidal Supp) 1 ea TID PRN [place] HEMORROIDAL PAIN/ITCHING Last administered on 01/03/19 09:24; Admin Dose 1 EA; Start 12/29/18 at 19:30 Hydrocortisone (Proctozone-Hc) 1 applic BID [place] Last administered on 01/04/19at 21:15; Admin Dose 1 APPLIC; Start 12/30/18 at 21:00 Hyoscyamine (Levsin (Sl)) 0.125 mg Q8H PRN PO abdominal cramping Last administered on 01/04/19at 14:21; Admin Dose 0.125 MG; Start 01/02/19 at 13:30 Psyllium Hydrophilic Mucilloid (Metamucil) 1 pkt DAILY PO Last administered on 01/05/19at 11:08; Admin Dose 1 PKT; Start 01/02/19 at 13:30 Tramadol HCl (Ultram) 100 mg Q6H PRN PO MODERATE PAIN LEVEL 4-6 Last administered on 01/04/19 23:08; Admin Dose 100 MG; Start 01/03/19 at 14:00 Hydromorphone HCl (Dilaudid) 0.2 mg PACU PRN IV MILD PAIN 1-3; Start 01/05/19 at 09:00; Stop 01/05/19 at 13:00 Hydromorphone HCl (Dilaudid) 0.4 mg PACU PRN IV MOD PAIN 4-6; Start 01/05/19 at 09:00; Stop 01/05/19 at 13:00 Hydromorphone HCl (Dilaudid) 0.6 mg PACU PRN IV SEVERE PAIN 7-10; Start 01/05/19 at 09:00; Stop 01/05/19 at 13:00 Oxycodone/ Acetaminophen (Percocet (5/ 325)) 1 tab PACU ORDER PRN PO .PAIN 1-5; Start 01/05/19 at 09:00; Stop 01/05/19 at 13:00 Oxycodone/ Acetaminophen (Percocet (5/ 325)) 2 tab PACU ORDER PRN PO .PAIN 6-10; Start 01/05/19 at 09:00; Stop 01/05/19 at 13:00 Ondansetron HCl (Zofran Inj) 4 mg PACU ORDER PRN IV NAUSEA/VOMITING; Start 01/05/19 at 09:00; Stop 01/05/19 at 13:00 Meperidine HCl (Demerol) 25 mg PACU ORDER PRN IV .RIGORS; Start 01/05/19 at 09:00; Stop 01/05/19 at 13:00 Oxycodone/ Acetaminophen (Percocet (5/ 325)) 1 tab Q4H PRN PO .MILD PAIN (1-3); Start 01/05/19 at 09:00 Oxycodone/ Acetaminophen (Percocet (5/ 325)) 2 tab Q4H PRN PO .MODERATE PAIN (4-6); Start 01/05/19 at 09:00 Ondansetron HCl (Zofran Inj) 4 mg Q6H PRN IV NAUSEA/VOMITING; Start 01/05/19 at 09:00 JUSTIN OCHOA Jan 05, 2019 11:30
[2019-01-05] MEDS: OXYCODONE/ACETAMINOPHEN (5/325) TAB PO PRN (12:37)
[2019-01-05] MEDS: HYDROmorphONE 1 MG/ML SYG IV PRN ×2 (15:32→20:20)
--- NOTE | 2019-01-05 15:45 | PN ---
Date/Time of Note Date/Time of Note DATE: 01/05/19 TIME: 15:42 Assessment/Plan VTE Prophylaxis [place] [facility] risk: 2 SCD applied [place] [facility] No SCD contraindicated: other Pharmacological prophylaxis: NA/contraindicated Pharm contraindication: other (anemia) Lines/Catheters IV [facility]ter [facility] (from [facility] Peripheral IV Urinary Cath still in place: No Assessment/Plan Hospital Course Assessment plan #Normocytic normal chromic anemia Suspect from reported hematochezia (has hemorrhoids) Continue to monitor H&H trend. GI consult is following s/p 1 PRBC 01.01.19 & 01.04.19 Status post hemorrhoidectomy per surgeon. #Transaminitis with hyperbilirubinemia Etiology unclear MRCP negative (although limited from motion artifact) Suspect alcoholic hepatitis? No steroids per GI Hepatitis A (IgM negative). Hepatitis C RNA negative. Monitor LFT #Pulmonary hypertension PA systolic pressure 53 mmHg per echo Possibly from underlying liver pathology Monitor for now #Alcohol abuse Patient with reported change drinking Cessation advised #Hemorrhoids Continue local applications Monitor Status post hemorrhoidectomy per surgeon. Continue with analgesics Disposition and plan. Status post hemorrhoidectomy continue analgesics. Monitor H&H trend. Discharge in next 24 to 48 hours if medically stable Discussed POC with Dr. Montiel Result Diagram: 01/05/19 0557 01/05/19 0557 Results 24hrs Laboratory Tests Test 01/05/19 05:57 White Blood Count 11.4 H Red Blood Count 2.42 L Hemoglobin 7.9 L Hematocrit 24.5 L Mean Corpuscular Volume 101.2 H Mean Corpuscular Hemoglobin 32.6 Mean Corpuscular Hemoglobin Concent 32.2 Red Cell Distribution Width 21.4 H Platelet Count 315 Mean Platelet Volume 9.7 Immature Granulocytes % 0.800 H Neutrophils % 79.6 H Lymphocytes % 13.5 L Monocytes % 4.7 Eosinophils % 1.0 Basophils % 0.4 Nucleated Red Blood Cells % 0.0 Immature Granulocytes # 0.090 H Neutrophils # 9.1 H Lymphocytes # 1.5 Monocytes # 0.5 Eosinophils # 0.1 Basophils # 0.0 Nucleated Red Blood Cells # 0.0 Sodium Level 137 Potassium Level 4.2 Chloride Level 103 Carbon Dioxide Level 29 Anion Gap 5 Blood Urea Nitrogen < 2 L Creatinine 0.64 Est Glomerular Filtrat Rate mL/min > 60 Glucose Level 84 Calcium Level 8.5 Subjective 24 Hr Interval Summary Free Text/Dictation Patient status post hemorrhoidectomy still reports having moderate pain Exam/Review of Systems Exam Vitals Vital Signs Date Temp Pulse Resp B/P (MAP) Pulse Ox O2 O2 Flow FiO2 Time Delivery Rate 01/05/19 94 107/64 15:23 (78) 01/05/19 98.3 17 99 Room Air 14:13 01/05/19 2.0 09:54 Intake and Output 01/04/19 01/04/19 01/05/19 1515:00 23:00 07:00 IntakeIntake Total 240 ml 1350 ml BalanceBalance 240 ml 1350 ml Exam Constitutional: alert, oriented Psych: nl mood/affect Head: normocephalic Eyes: nl conjunctiva Neck: supple, non-tender Respiratory: clear to auscultation Cardiovascular: other (regular rate) Gastrointestinal: soft, non-tender Musculoskeletal: nl extremities to inspection Neurological: ADMINISTRATIVE COURT JUSTICE II-XII intact, nl speech Results Results 24hrs Laboratory Tests Test 01/05/19 05:57 White Blood Count 11.4 H Red Blood Count 2.42 L Hemoglobin 7.9 L Hematocrit 24.5 L Mean Corpuscular Volume 101.2 H Mean Corpuscular Hemoglobin 32.6 Mean Corpuscular Hemoglobin Concent 32.2 Red Cell Distribution Width 21.4 H Platelet Count 315 Mean Platelet Volume 9.7 Immature Granulocytes % 0.800 H Neutrophils % 79.6 H Lymphocytes % 13.5 L Monocytes % 4.7 Eosinophils % 1.0 Basophils % 0.4 Nucleated Red Blood Cells % 0.0 Immature Granulocytes # 0.090 H Neutrophils # 9.1 H Lymphocytes # 1.5 Monocytes # 0.5 Eosinophils # 0.1 Basophils # 0.0 Nucleated Red Blood Cells # 0.0 Sodium Level 137 Potassium Level 4.2 Chloride Level 103 Carbon Dioxide Level 29 Anion Gap 5 Blood Urea Nitrogen < 2 L Creatinine 0.64 Est Glomerular Filtrat Rate mL/min > 60 Glucose Level 84 Calcium Level 8.5 Medications Medication Current Medications IV Flush (NS 3 ml) 3 ml PER PROTOCOL IV ; Start 12/28/18 at 00:00 Ondansetron HCl (Zofran Inj) 4 mg Q6H PRN IV NAUSEA/VOMITING Last administered on 01/04/19at 12:32; Admin Dose 4 MG; Start 12/28/18 at 00:00 Pantoprazole (Protonix Iv) 40 mg BID@,18 IV Last administered on 01/05/19 06:33; Admin Dose 40 MG; Start 12/28/18 at 00:00 Skin Resp Fact/ Shark/Phenyl Mercur (Hemorrhoidal Supp) 1 ea TID PRN [place] HEMORROIDAL PAIN/ITCHING Last administered on 01/03/19 09:24; Admin Dose 1 EA; Start 12/29/18 at 19:30 Hydrocortisone (Proctozone-Hc) 1 applic BID [place] Last administered on 01/04/19 21:15; Admin Dose 1 APPLIC; Start 12/30/18 at 21:00 Hyoscyamine (Levsin (Sl)) 0.125 mg Q8H PRN PO abdominal cramping Last administered on 01/04/19 14:21; Admin Dose 0.125 MG; Start 01/02/19 at 13:30 Psyllium Hydrophilic Mucilloid (Metamucil) 1 pkt DAILY PO Last administered on 01/05/19 11:08; Admin Dose 1 PKT; Start 01/02/19 at 13:30 Tramadol HCl (Ultram) 100 mg Q6H PRN PO MODERATE PAIN LEVEL 4-6 Last administered on 01/04/19 23:08; Admin Dose 100 MG; Start 01/03/19 at 14:00 Oxycodone/ Acetaminophen (Percocet (5/ 325)) 1 tab Q4H PRN PO .MILD PAIN (1-3); Start 01/05/19 at 09:00 Oxycodone/ Acetaminophen (Percocet (5/ 325)) 2 tab Q4H PRN PO .MODERATE PAIN (4-6) Last administered on 01/05/19 12:37; Admin Dose 2 TAB; Start 01/05/19 at 09:00 Ondansetron HCl (Zofran Inj) 4 mg Q6H PRN IV NAUSEA/VOMITING; Start 01/05/19 at 09:00 Hydromorphone HCl (Dilaudid) 1 mg Q4H PRN IV SEVERE PAIN LEVEL 7-10 Last administered on 01/05/19 15:32; Admin Dose 1 MG; Start 01/05/19 at 15:30 CATHRYN MARRUFO NP Jan 05, 2019 15:45
[2019-01-06] MEDS: OXYCODONE/ACETAMINOPHEN (5/325) TAB PO PRN ×2 (00:30→10:17)
[2019-01-06 02:02] VITALS: BP 107/58; PULSE 79; PULSE 95; RESP 16
[2019-01-06] MEDS: HYDROmorphONE 1 MG/ML SYG IV PRN ×3 (03:41→12:30)
[2019-01-06] MEDS: PANTOPRAZOLE 40 MG INJ IV SCH (06:13)
[2019-01-06 07:54] VITALS: BP 100/55; PULSE 90; RESP 20
[2019-01-06] MEDS: HYDROCORTISONE 2.5% 30 GM RECT CR PR SCH (08:07)
[2019-01-06] MEDS: PSYLLIUM 28% PACKET PO SCH (08:07)
--- NOTE | 2019-01-06 10:37 | PDOCDIS ---
Discharge Instructions DIAGNOSIS Discharge Diagnosis #Normocytic normal chromic anemia #Transaminitis with hyperbilirubinemia #Pulmonary hypertension #Alcohol abuse #Hemorrhoids CONDITION [id number] Patient Condition: [id number] Stable HOME CARE INSTRUCTIONS: [id number] Diet Instructions: [id number] Low Fat /Cholesterol FOLLOW UP/APPOINTMENTS Follow-up Plan Follow up with Dr. Jeff Irby in one week Office Address [address] [place] [address] Office Follow up with Dr. Corina Ortiz in one week Office Address [address] [place] [address] Office OTHER ORDERS: Other Orders: Do not consume alcohol CATHRYN MARRUFO NP Jan 06, 2019 10:37
--- NOTE | 2019-01-06 18:12 | DS ---
Date/Time of Note Date/Time of Note DATE: 01/06/19 TIME: 18:01 Discharge Summary Admission/Discharge Info Admit Date/Time Dec 27, 2018 at 23:49 Discharge Date/Time Jan 06, 2019 at 13:20 Discharge Diagnosis #Normocytic normal chromic anemia #Transaminitis with hyperbilirubinemia #Pulmonary hypertension #Alcohol abuse #Hemorrhoids Patient Condition: Stable Hospital Course This is a 33-year-old female with history of alcohol binging and unspecified liver disease who came to the hospital from [facility] with complaints of abdominal pain for 4 days. She was transferred to [facility] due to insurance issues. Per report she started having abdominal pain with some joint pain. She also had unspecified chest pain for 3 days. She also had some diffuse bowel pain. Came to the hospital she was noted to be anemic with hemoglobin of 7.1 but repeat showed hemoglobin of 6.3. She was transfused packed red blood cells. She was noted with transaminitis as well likely from her alcohol abuse. She came in with a alk phos of 163, AST 77, bili total 6.8, bili direct 4.0. Patient was noted to be anemic. There was suspect GI bleed as patient did report having some rectal bleeding. Gsa Coordinator did follow the patient was noted patient did have some internal hemorrhoids which was likely the cause. She did receive blood transfusion for this. After evaluation per GI she was noted with likely alcoholic hepatitis. No third medication recommended during this admission. Hepatitis panel was negative. Due to continued bleeding and wavering in anemia who was discussed by care team and discussed with patient for hemorrhoidectomy for which she was agreeable to. She did undergo hemorrhoidectomy with good response. Her anemia did stabilize. She was otherwise optimized medically. She was counseled on alcohol cessation she was advised for follow-up with brickmason supervisor as well as surgeon within a week. The plan of care was discussed with the patient and she verbalized understanding. On the day of discharge patient was in stable condition Discussed POC with Dr. Montiel [place] Meds Active Scripts Hydrocortisone (Proctocream-Hc) 30 Gm Cream.gm., 1 APPLIC DC BID, #1 OZ apply to rectum for pain Prov:CATHRYN MARRUFO NP 01/06/19 Oxycodone HCl/Acetaminophen (Oxycodone-Acetaminophen 5-325) 1 Each Tablet, 1 TAB PO Q6 PRN for .MILD PAIN (1-3), #25 TAB Prov:CATHRYN MARRUFO WAVE SOLDER OFFBEARER 01/06/19 Reported Medications Pantoprazole* (Pantoprazole*) 40 Mg Tablet., 40 MG PO AC BREAKFAST PRN for NEEDED, TAB 01/05/19 Polyethylene Glycol* (Miralax*) 17 Gm Powd.pack, 17 GM PO DAILY PRN for NEEDED, #30 PACKET 01/05/19 Discontinued Reported Medications Omeprazole* (Omeprazole*) 40 Mg Capsule.dr, 40 MG PO DAILY PRN for NEEDED, #30 CAP 01/05/19 Tramadol Hcl* (Ultram*) 50 Mg Tablet, 50 MG PO BID PRN for NEEDED, TAB 01/05/19 Follow-up Plan Follow up with Dr. Jeff Irby in one week Office Address [address] [facility] [address] [place] [address] Office Follow up with Dr. Corina Ortiz in one week Office Address [address] [facility] [place] [address] Office Primary Care Provider Care Physician No Primary Time spent on discharge: > 30 minutes Pending Labs Laboratory Tests Test 01/06/19 05:53 01/06/19 05:55 Total Bilirubin 2.3 mg/dl (0.2-1.3) Direct Bilirubin 0.80 mg/dl (0.00-0.20) Indirect Bilirubin 1.5 mg/dl (0-1.1) Aspartate Amino 222 IU/L (15-46) Transf (AST/SGOT) Alanine 32 IU/L (13-69) Aminotransferase (ALT/SGPT) Alkaline Phosphatase 182 IU/L (42-121) Total Protein 7.8 g/dl (6.1-8.1) Albumin 3.0 g/dl (3.3-4.9) White Blood Count 16.4 10^3/ul (4.8-10.8) Red Blood Count 2.64 10^6/ul (4.20-5.40) Hemoglobin 8.5 g/dl (12.0-16.0) Hematocrit 26.8 % (37.0-47.0) Mean Corpuscular Volume 101.5 fl (82.0-101.0) Mean Corpuscular Hemoglobin 32.2 pg (29.0-33.0) Mean Corpuscular 31.7 g/dl (32.0-37.0) Hemoglobin Concent Red Cell Distribution Width 21.8 % (11.5-14.5) Platelet Count 398 10^3/UL (140-415) Mean Platelet Volume 9.6 fl (7.4-10.4) Immature Granulocytes % 0.900 % (0.001-0.429) Neutrophils % 84.6 % (39.0-77.0) Lymphocytes % 8.2 % (15.0-51.0) Monocytes % 5.9 % (0.0-11.0) Eosinophils % 0.2 % (0.0-7.0) Basophils % 0.2 % (0.0-2.0) Nucleated Red Blood Cells % 0.0 /100WBC (0.0-0.0) Immature Granulocytes # 0.140 10^3/ul (0.0-0.031) Neutrophils # 13.9 10^3/ul (1.6-7.5) Lymphocytes # 1.3 10^3/ul (0.8-2.9) Monocytes # 1.0 10^3/ul (0.3-0.9) Eosinophils # 0.0 10^3/ul (0.0-0.5) Basophils # 0.0 10^3/ul (0.0-0.1) Nucleated Red Blood Cells # 0.0 10^3/ul (0.0-0.0) Sodium Level 137 mmol/L (135-144) Potassium Level 4.5 mmol/L (3.5-5.1) Chloride Level 101 mmol/L (97-110) Carbon Dioxide Level 29 mmol/L (21-31) Anion Gap 7 (5-13) Blood Urea Nitrogen 7 mg/dl (7-20) Creatinine 0.63 mg/dl (0.44-1.00) Est Glomerular Filtrat > 60 mL/min (>60) Rate mL/min Glucose Level 119 mg/dl (70-220) Calcium Level 9.1 mg/dl (8.4-10.2) CATHRYN MARRUFO NP Jan 06, 2019 18:12
== END 2019-01-06 13:20 | disposition home or self-care (01) | DRG 348 ==
LOC: E/R 23:23 → 2NE 23:49
PROVIDERS: ADMIT Family Medicine; ATTEND Family Medicine
PROC: 30233N1 Transfusion of Nonautologous Red Blood Cells into Peripheral Vein, Percutaneous Approach (ICD-10-PCS; 2018-12-29)
PROC: 30233N1 Transfusion of Nonautologous Red Blood Cells into Peripheral Vein, Percutaneous Approach (ICD-10-PCS; 2019-01-01)
PROC: 30233N1 Transfusion of Nonautologous Red Blood Cells into Peripheral Vein, Percutaneous Approach (ICD-10-PCS; 2019-01-04)
PROC: 06BY0ZC Excision of Hemorrhoidal Plexus, Open Approach (ICD-10-PCS; principal; 2019-01-05 08:00)
DX: K64.2 Third degree hemorrhoids (principal); D68.9 Coagulation defect, unspecified; D62 Acute posthemorrhagic anemia; K62.5 Hemorrhage of anus and rectum; K64.8 Other hemorrhoids; I27.20 Pulmonary hypertension, unspecified; K70.10 Alcoholic hepatitis without ascites; F10.10 Alcohol abuse, uncomplicated; Y90.0 Blood alcohol level of less than 20 mg/100 ml; E66.9 Obesity, unspecified; Z68.31 Body mass index [BMI] 31.0-31.9, adult; Z59.0 Homelessness
CPT/HCPCS: 36430; 71045; 74177; 74181; 76705; 80048; 80053; 80076; 80307; 81001; 82270; 82728; 83010; 83036; 83540; 83615; 83690; 83735; 83880; 84100; 84443; 84484; 84703; 85014; 85018; 85025; 85045; 85610; 85730; 86038; 86255; 86704; 86706; 86708; 86709; 86803; 86850; 86900; 86901; 86920; 87081; 87086; 87340; 87522; 88302; 93005; 93306; C9113; J0690; J1100; J1170; J1885; J2250; J2270; J2405; J2765; J7030; J7040; P9016; Q9967

== ENCOUNTER 2019-01-17 09:04 | Emergency (ER) | payer OTHER ==
[~2019-01-17] VITALS: Ht 157.5 cm; Wt 78.2 kg
[~2019-01-17 09:04] MED LIST changes: -GABA300C16 PO; -HYDR-3643 PO; -MTF1000T PO; -OMEP40CA6 PO; -PANT40TA4 PO; -TRAM50TA PO
[2019-01-17 09:18] VITALS: Ht 157.5 cm; Wt 78.2 kg
[2019-01-17] MEDS ORDERED: morphine 2 MG INJ IV STA (12:00)
[2019-01-17 12:54] VITALS: BP 110/60; PULSE 89; RESP 18
== END 2019-01-17 13:14 | disposition home or self-care (01) ==
LOC: E/R 09:04
DX: K62.5 Hemorrhage of anus and rectum (principal); R10.9 Unspecified abdominal pain
CPT/HCPCS: 36415; 71045; 80053; 81001; 83690; 85025; 85610; 85730; 86850; 86870; 86900; 86901; 86902; 96374; J2270; Z7502